=== PATIENT | female | born 1955 | race Caucasian/White ===

== ENCOUNTER 2016-09-28 17:03 | Inpatient (IN) ==
[2016-09-28] MEDS ORDERED: Ondansetron 4 MG/2 ML VIAL IVP PRN (20:45)
[2016-09-28] MEDS ORDERED: Naloxone 0.4 MG/ML INJ IVP PRN (20:45)
[2016-09-28] MEDS ORDERED: *HR* Heparin 5,000 UNIT/ML VIAL IVP PRN ×2 (20:45)
[2016-09-28] MEDS ORDERED: Acetaminophen 325 MG TABLET PO PRN (20:45)
[2016-09-28] MEDS ORDERED: Heparin 25,000 UNIT/500 ML D5W 25,000 UNIT/500 ML MLS IVC SCH (20:45)
[2016-09-28] MEDS ORDERED: methylPREDNISolone 125 MG/2 ML VIAL IVP STA (20:45)
[2016-09-28] MEDS ORDERED: *HR* Heparin 5,000 UNIT/ML VIAL IVP ONE (20:45)
[2016-09-28] MEDS ORDERED: Albuterol 2.5 MG/3 ML NEBULIZER IH PRN (20:45)
[2016-09-28] MEDS ORDERED: MOM Conc 10 ML UD.LIQ PO PRN (20:45)
[2016-09-28] MEDS ORDERED: Pantoprazole 40 MG VIAL IVP STA (20:45)
[2016-09-28] MEDS ORDERED: Nitroglycerin 0.4 MG TAB.SUBL SL PRN ×2 (20:45→21:00)
[2016-09-28] MEDS ORDERED: D5% in Water 1,000 ML IV PRN (21:02)
[2016-09-28] MEDS ORDERED: *HR* Dextrose 50 % in Water (Syg) 50 ML SYRINGE IVP PRN (21:02)
[2016-09-28] MEDS ORDERED: Dextrose Gel 15 GM PO PRN ×2 (21:02)
[2016-09-28] MEDS: Insulin LISPRO 300 UNITS/3 ML VIAL SQ SCH (21:23)
[2016-09-28] MEDS: 0.9 % Sodium Chloride 1,000 ML IVC SCH (21:37)
[2016-09-28] MEDS: Fenofibrate 54 MG TABLET PO SCH (21:37)
[2016-09-28] MEDS: Gabapentin 300 MG CAPSULE PO SCH (21:37)
[2016-09-28] MEDS: ALPRAZolam 0.25 MG TABLET PO SCH (21:37)
[2016-09-28] MEDS: Famotidine 20 MG TABLET PO SCH (21:37)
--- NOTE | 2016-09-28 21:39 | Internal Med History&Physical ---
Date of Encounter: 09/28/16 Time of Encounter: 21:00 Assessment and Plan (1) Acute on chronic respiratory failure with hypoxia and hypercapnia Status: Acute (2) Decompensated COPD with exacerbation (chronic obstructive pulmonary disease) Status: Acute (3) Non-ST elevation myocardial infarction (NSTEMI) due to mismatch of myocardial oxygen supply and demand Status: Acute (4) Demand ischemia of myocardium Status: Acute (5) Elevated troponin I measurement Status: Acute (6) Pneumonia Status: Acute . Qualifiers: Pneumonia type: due to unspecified organism Laterality: bilateral Lung location: unspecified part of lung Qualified Code(s): J18.9 - Pneumonia, unspecified organism (7) History of PTCA Status: Chronic . (8) CAD (coronary artery disease) Status: Chronic . Qualifiers: Coronary Disease-Associated Artery/Lesion type: beaver artery [place] vs. transplanted heart: beaver heart Associated angina: angina presence unspecified Qualified Code(s): I25.10 - Atherosclerotic heart disease of beaver coronary artery without angina pectoris (9) Chronic kidney disease, stage 3 Status: Chronic . (10) Diabetes mellitus type 2 in obese Status: Chronic . (11) Mixed hyperlipidemia Status: Chronic . (12) Morbid obesity Status: Chronic . Qualifiers: Obesity type: due to excess calories Qualified Code(s): E66.01 - Morbid ( severe) obesity due to excess calories (13) Acute chest wall pain Status: Acute . (14) Chest pain, rule out acute myocardial infarction Status: Acute . (15) Chest pain with moderate risk of acute coronary syndrome Status: Acute . (16) Atherosclerosis with claudication of extremity Status: Chronic . (17) Tobacco abuse Status: Chronic . Internal Medicine - H&P: HPI Chief complaint: Difficulty breathing Admitted From: Hospital to Hospital Transfer (Hospital transfer [facility] to [facility]) Plans for Post Hospital Care: Home History of present illness: Ms. Stein is a 61 year old female with history significant for hypothyroidism, depression and anxiety, type 2 diabetes mellitus, hypertension, dyslipidemia, osteoarthritis, osteoporosis, vitamin D deficiency, CAD/PTCA stents/AMI, PAD/LE claudication, CKD III/diabetic nephropathy, GERD, COPD, H/O asthma, chronic LBP syndrome/diabetic peripheral neuropathy, DDD of spine, morbid obesity, nicotine dependency The patient was visited and interviewed and examined. The patient was admitted to [facility] as a hospital to hospital transfer from [facility], [place], [place] emergency department when she presented the evening of admission via EMS services with complaints of severe shortness of breath. Dyspnea at rest and exacerbated with light activity. She felt as if she had a cold approximately 1-2 weeks earlier this progressed with a deep nonproductive cough the feeling of chest congestion and stuffiness of her head and throbbing headache as well as progressive malaise. Symptoms progressed over next 7-day period and worse the 3 days leading up to admission. SHe experienced at the extremes of activity episodes of substernal chest pain rated at 4-10/10 in severity and nonradiating as well as a nonproductive cough and lightheadedness. Pleuritic quality to the chest pain was appreciated with aggravation with deep inspiration and cough. Headache at times felt to be more severe at a 7-8/10 in severity and generalized. Postural dizziness with presyncopal features were also experienced. She denies any overt fevers chills or sweats. Denied any upper respiratory complaints of sinus congestion sore throat or sinus pressure or postnasal drainage. She denied any PND orthopnea or peripheral edema. Cough is intermittently productive of scant sputum. No evidence of hemoptysis. Wheezing was appreciated. She denied any abdominal pain nausea vomiting or diarrhea predating her respiratory symptoms. Denied flank pain and low back pain dysuria frequency or hematuria. She denied a rash. He denies any gait disturbance and lateral weakness headache and neck pain speech deficit vision deficit or syncope. The patient reported compliance with prescribed medications. She continues to smoke. Denies any dietary OTC or recreational substance indiscretions. Findings in the [facility] ED: Temperature 97.4 pulse 62-72 respirations 14-20 BP 114-150/51-106. O2 saturation 89-94% room air. O2 saturation on 2 L per nasal cannula 92-96%. Weight 107.5 kg height 5 feet 6 inches BMI 38.25. CBC 14.5 hemoglobin 12 platelets 209,000. Differential showed an increase in neutrophils and monocytes. Metabolic panel normal except a glucose at 49. BUN 15 with creatinine 1.45 GFR 39. Troponin 0.73 and 0.75. BNP 445. CPK 106 CK-MB 2.6. EKG demonstrated normal sinus rhythm at 67 bpm. Evolving left axis deviation. Q wave in V1 and V2. Septal infarct age indeterminate. Transition V3 V4. Nonspecific ST-T wave changes. Minimal lateral ST depression. Baseline artifact. Chest x-ray was interpreted as showing no acute or active cardiopulmonary changes. Treatment rendered in the emergency department before transfer included intravenous Solu-Medrol, intravenous Rocephin and azithromycin, DuoNeb administration, aspirin, intravenous morphine. Transfer to [facility] at patient request with diagnoses of Chest pain unspecified and COPD exacerbation unspecified. Initial studies performed at [facility]: WBC 12.0 hemoglobin 12.1 platelets 203,000. Differential noted an increase in neutrophils. PT 13.4 INR 1.2 PTT 35.6. Metabolic panel noted sodium 135 creatinine 1.1 BUN 15 GFR 38. Glucose 135. Hepatic function normal. Troponin 0.70 BNP 684. Albumin [address] chest demonstrated multifocal groundglass opacities. No evidence for pneumothorax, pleural effusion or focal consolidation. Nonspecific findings 30 for opportunistic infection, hypersensitivity pneumonitis, pulmonary edema, chronic interstitial disease. Preliminary impressions suggested And sedated COPD with exacerbation and associated acute on chronic respiratory failure with hypoxia and hypercapnia. Demand ischemia of myocardium with associated elevation in troponin I measurement consistent with non-ST elevation myocardial infarction due to mismatch of myocardial infarction supply and demand associated flash pulmonary edema. Acute chest pain complaints presented typical and atypical features of ACS/UA in a patient with underlying diffuse vasculopathy. The reproducible chest wall component consistent with acute costochondritis was also appreciated as well as a pleuritic quality of pain persisted with the patient's concurrent pulmonary infection. Community-acquired atypical vs viral pneumonia was suspected. Systemic inflammatory response criterion were met. Sepsis criterion however was not met. Patient presented the significant risk for further acute clinical decline and morbidity and her presenting chief complaints, clinical findings and comorbidities in the setting of evolving multiorgan derangements. Workup and treatments will proceed comprehensively. Cumulative laboratory and radiographic data base was reviewed, considered and discussed. Pertinent ancillary medical records including ECW and PCI documentation was reviewed and considered. Given the patient's presenting concerns, past medical history, clinical findings and symptoms, she is admitted at this time will undergo further evaluation and disposition. Orders were written as per the computerized physician recorder of deeds system.......................................................................... .................... Consultative opinions will be sought as clinical circumstances justify. Initial consultation requested of cardiology. Pain management needs will be addressed. Laboratory and radiographic data base will be updated as appropriate. Studies include: Cultures of blood urine and sputum, PT/INR, APTT, cardiac injury panel , BNP, metabolic and hematologic panel, magnesium, phosphorus, ionized calcium, thyroid panel, lipid profile, A1c, C-peptide, CRP, sed rate, respiratory infection profile, respiratory virus panel, MRSA surveillance, blood gas, amylase, lipase, lactic acid, serologies, etc. Precautions: Aspiration, fall, delirium protocol/surveillance initiated. Telemetry with continuous hemodynamic monitoring and pulse oximetry initiated. Orthostatic vital signs. Empiric antibody coverage: Intravenous Zosyn and Levaquin pending culture data. Special studies: CT chest, chest x-ray, telemetry, EKG, echocardiogram. Pulmonary toilet: Incentive spirometry, aerosol bronchodilator, mucolytic, antitussive, supplemental oxygen. Corticosteroid therapy. CPAP/BiPAP supplemental oxygen delivery employed. Aerosol Mucomyst therapy may be employed. Fluid and electrolyte repletion efforts will proceed. Careful attention to fluid balance and renal recovery will be emphasized. Avoidance of nephrotoxic exposure and adverse drug drug interaction in the setting of impaired renal function will be monitored closely. Acute coronary syndrome protocols/surveillance initiated. Protocol includes: Aspirin statin beta jessica Plavix and ALESIA inhibitor. As needed nitrates. As needed morphine analgesia. Supplemental oxygen. Intravenous heparin drip low-dose ACS protocol initiated. DVT and PUD prophylaxis initiated: PPI/H2 jessica therapy, intermittent pneumatic cuffs/TEDs. Early ambulation will be encouraged. Immunization updates recommended. Influenza and pneumococcal vaccinations as part of ongoing preventative healthcare recommendations strongly recommended. Smoking cessation counseling briefly addressed. Patient accepted nicotine substitution during this hospitalization.. Advanced care directive discussion briefly addressed. Patient does not declare any healthcare restrictions at this time. Cardiovascular risk appraisal and cardiovascular risk reduction efforts will be emphasized. Physical and occupational therapy may be consulted to evaluate patient's functional capacity and progress mobility if her circumstances justify. Sliding scale/nutritional/basal insulin coverage, ADA dietary restraint and schedule an as-needed basis fingerstick glucose assessments were initiated. Nutrition/diabetes education counseling may be considered as circumstances permit. Outpatient medication schedules will be reviewed, confirmed and facilitated as appropriate. Reconciliation of home treatments including adjustments, substitutions and reintroduction into the treatment regimen will address necessary maintenance therapies for chronic pre-existing medical conditions. Plan of care has been reviewed and discussed in detail with the patient. Questions addressed. Hospital course will depend upon clinical findings, treatment response and potential consultative interventions. Patient is at risk for further acute clinical decline and morbidity due to her presenting chief complaints, findings and comorbidities in the setting of evolving multiorgan derangements. Condition is serious. Prognosis is cautiously optimistic. CODE STATUS is full. Past Med Surg Social Fam HX - Past Medical History Source: old records reviewed Medical history: arthritis, asthma, cardiomyopathy, CHF, COPD, coronary artery disease, diabetes, GERD, hyperlipidemia, hypertension, myocardial infarction, osteoporosis, peripheral artery disease, renal disease, thyroid disease, other Psychiatric history: anxiety, depression, panic disorder, other - Past Surgical History Surgical History: angioplasty/stent, breast surgery, cataract, hysterectomy, orthopedic, other, MARÍA/BSO, other (Tonsillectomy adenoidectomy) - Social History Smoking Status: Current every day smoker Packs per day: 1ppd x43yrs Smokeless Tobacco Status: No Alcohol use: occasionally Drug use: none Occupational status: unemployed Current living situation: With Family Activity Level: Independent ambulation, Mostly sedentary Recent Out of Country Travel Within the Last 8 Weeks: No Exposure or Possible Exposure to Illness During Travel: No - Family History Mother Living Status: Hx Family Cardiac Disorders: Yes Hx Family Cancer: Yes Hx Family Endocrine Disorder: Yes Internal Medicine - H&P: Meds Amlodipine Besylate 10 mg PO DAILY 12/19/15 [History] Ergocalciferol (VITAMIN D2) [Vitamin D2 (50,000 UNIT)] 50,000 unit PO PARK [History] FLUoxetine HCl [Prozac] 40 mg PO QPM 12/19/15 [History] Gabapentin [Neurontin] 300 mg PO TID 12/19/15 [History] Levothyroxine [Synthroid] 125 mcg PO DAILY 12/19/15 [History] Metoprolol XL (24 HR) Succ [Toprol Xl] 25 mg PO QPM 12/19/15 [History] Nitroglycerin 0.4 mg SL Q5MIN PRN 12/19/15 [History] Simvastatin [Zocor] 40 mg PO HS 12/19/15 [History] Cholecalciferol (Vitamin D3) [Vitamin D3] 2,000 unit PO DAILY 02/28/16 [History] Linagliptin [Tradjenta] 5 mg PO DAILY 02/28/16 [History] Aspirin Enteric Coated [Aspirin EC] 81 mg PO DAILY 03/21/16 [History] Clopidogrel [Plavix] 75 mg PO QPM 03/21/16 [History] Ranitidine HCl [Zantac] 300 mg PO DAILY 03/21/16 [History] Fenofibrate Nanocrystallized [Fenofibrate] 145 mg PO DAILY 09/29/16 [History] Albuterol Sulfate [Proair Hfa] 1 puff IH Q4HR PRN #1 inh 10/04/16 [Rx] Budesonide/Formoterol 160/4.5 [Symbicort 160/4.5] 1 puff IH DAILY #1 inhaler 06/10 [Rx] Nicotine Patch [Nicoderm] 21 mg TD DAILY #30 patch.td24 10/04/16 [Rx] Pantoprazole [Protonix] 40 mg IVP DAILY #14 vial 10/04/16 [Rx] PredniSONE 40 mg PO DAILY #2 tablet 10/04/16 [Rx] Alprazolam [Xanax 0.25 MG Tablet] 0.25 mg PO TID PRN #21 tablet 10/07/16 [Rx] Lisinopril [Zestril] 40 mg PO DAILY #30 tablet 10/07/16 [Rx] Metformin HCl [Metformin HCl ER] 1,000 mg PO DAILY #30 [id number] 10/07/16 [Rx] OxyCODONE/APAP 5/325 [Percocet 5/325 MG] 1 tab PO Q6HR PRN #30 tablet 10/07/16 [ Rx] Pantoprazole Sodium 40 mg PO BID #14 tablet. 10/07/16 [Rx] Allergies No Known Allergies Allergy (Verified 04/24/16 08:30) All Systems PM: A 10-system review of systems was performed and is negative for pertinent findings except as documented above in the HPI. - Constitutional Constitutional: as per HPI, malaise, no chills, no fever(s), no night sweats - EENT Eyes: as per HPI, no change in vision, no discharge, no pain, no photophobia Ears: as per HPI, no ear discharge, no ear pain, no tinnitus Nose, mouth and throat: as per HPI, nasal congestion, post-nasal drip, no dysphagia, no nasal discharge, no neck pain, no sore throat - Cardiovascular Cardiovascular ROS IM: as per HPI, chest pain, dyspnea, lightheadedness, no diaphoresis, no palpitations, no syncope - Respiratory Respiratory: as per HPI, cough, dyspnea, dyspnea on exertion, wheezing, chest congestion, change in phlegm color, pain with cough, no hemoptysis, no excessive phlegm production - Gastrointestinal Gastrointestinal: as per HPI, no abdominal pain, no diarrhea, no hematemesis, no hematochezia, no melena, no nausea, no vomiting - Genitourinary Genitourinary: as per HPI, no change in urinary stream, no dysuria, no flank pain, no hematuria - Musculoskeletal Musculoskeletal ROS IM: as per HPI, no numbness, no tingling - Integumentary Integumentary IM: as per HPI, no rash, no unusual bruising - Neurological Neurological ROS: as per HPI, no confusion, no convulsions, no focal weakness, no numbness, no tingling, no tremor(s) - Psychiatric Psychiatric: as per HPI - Endocrine Endocrine IM: as per HPI - Hematologic/Lymphatic Hematologic/Lymphatic: as per HPI, no easy bruising - Allergic/Immunologic Allergic/Immunologic: as per HPI - Constitutional Vitals: Temp Pulse Resp BP Pulse Ox 98.0 F 80 18 173/77 94 L 09/28/16 19:39 09/28/16 19:39 09/28/16 19:39 09/28/16 19:39 09/28/16 19:39 General appearance: Present: cooperative, disheveled, mild distress, A&O X 3, morbidly obese, answers questions appropriately - Head Head exam: Present: atraumatic, normal inspection, normocephalic - Eye Eye exam: Present: EOMI, PERRL, conjuntiva pink, sclera anicteric Pupils: Present: normal accommodation, PERRL - ENT ENT exam: Present: mucous membranes moist, normal external ear exam, normal oropharynx - Neck Neck exam general surgery: Present: full ROM, supple, trachea midline. Absent: lymphadenopathy, tenderness, nuchal rigidity - Respiratory Respiratory exam: Present: accessory muscle use, chest wall tenderness, decreased breath sounds, prolonged expiratory phase, rhonchi, wheezes. Absent: CTAB, rales, stridor - Cardiovascular Cardiovascular exam: Present: distant heart sounds, RRR, +S1, +S2, tachycardia. Absent: diastolic murmur, gallop, rubs, systolic murmur - GI/Abdominal GI/Abdominal exam: Present: distended, normal bowel sounds, soft, no peritoneal signs. Absent: tenderness - Extremities Exam Extremities exam: Present: full ROM, warm, radial pulses palpable and symetrical. Absent: calf tenderness, cyanotic, pedal edema - Neurological Exam Neurological exam: Present: alert, CN II-XII intact, oriented X3, no focal deficits. Absent: pronater drift, facial droop, speech deficit - Psychiatric Psychiatric exam: Present: normal affect, normal mood - Skin Skin exam: Present: cyanosis, dry, intact, warm. Absent: petechiae, rash, urticaria, vesicles Internal Med - H&P Results - Labs CBC & Chem 7: 10/06/16 04:47 10/06/16 04:47 - Impressions Vital Signs Temp Pulse Resp BP Pulse Ox 09/29/16 00:45 98.0 F 59 16 123/58 92 L 09/28/16 23:01 16 93 L 09/28/16 19:39 98.0 F 80 18 173/77 94 L Intake and Output 09/28/16 09/28/16 09/29/16 15:59 23:59 07:59 Intake Total 200 / 200 Output Total 0 / 0 Balance 200 / 200 Intake: Oral 200 / 200 Output: Urine 0 / 0 Other: Weight 106 kg Blood Glucose* 114 Short CBC 09/28/16 Range/Units 21:34 WBC 12.0 H (4.3-11.1) K/mcL Hgb 12.1 (11.5-15.4) g/dL Hct 37.1 (35.3-44.9) % Plt Count 203 (140-400) K/mcL Neutrophils # 11.0 H (1.6-8.9) K/mcL BMP 09/28/16 Range/Units 21:34 Sodium 135 L (136-145) mEq/L Potassium 4.0 (3.5-4.5) mEq/L Chloride 104 (98-109) mEq/L Carbon Dioxide 19 (19-29) mEq/L BUN 15 (7-20) mg/dL Creatinine 1.41 H (0.57-1.11) mg/dL Glucose 135 H (70-99) mg/dL Calcium 9.9 (8.6-10.8) mg/dL Cardiac Enzymes 09/28/16 Range/Units 21:34 Troponin I 0.70 H* (0-0.03) ng/mL Liver Function 09/28/16 Range/Units 21:34 Total Bilirubin 0.6 (0.2-1.2) mg/dL AST 25 (5-34) Units/L ALT 16 (0-55) Units/L Alkaline Phosphatase 57 (38-126) Units/L Albumin 3.0 L (3.5-5.0) g/dL Abnormal lab results WBC 12.0 K/mcL (4.3-11.1) H 09/28/16 21:34 MCH 27.8 pg (28.0-33.3) L 09/28/16 21:34 Neutrophils # 11.0 K/mcL (1.6-8.9) H 09/28/16 21:34 PT 13.4 Seconds (9.4-12.1) H 09/28/16 21:34 Sodium 135 mEq/L (136-145) L 09/28/16 21:34 Creatinine 1.41 mg/dL (0.57-1.11) H 09/28/16 21:34 Est GFR ( Amer) 46 (> 60) L 09/28/16 21:34 Est GFR (Non-Af Amer) 38 (> 60) L 09/28/16 21:34 Glucose 135 mg/dL (70-99) H 09/28/16 21:34 Troponin I 0.70 ng/mL (0-0.03) H* 09/28/16 21:34 Albumin 3.0 g/dL (3.5-5.0) L 09/28/16 21:34 Globulin 4.6 g/dL (2.4-3.5) H 09/28/16 21:34 Albumin/Globulin Ratio 0.7 (1.1-2.2) L 09/28/16 21:34 Allergies Allergy/AdvReac Type Severity Reaction Status Date / Time No Known Allergies Allergy Verified 04/24/16 08:30 Laboratory Results WBC 12.0 K/mcL (4.3-11.1) H 09/28/16 21:34 RBC 4.35 M/mcL (3.82-4.97) 09/28/16 21:34 Hgb 12.1 g/dL (11.5-15.4) 09/28/16 21:34 Hct 37.1 % (35.3-44.9) 09/28/16 21:34 MCV 85.3 fL (83.0-100.0) 09/28/16 21:34 MCH 27.8 pg (28.0-33.3) L 09/28/16 21:34 MCHC 32.6 g/dL (31.6-35.5) 09/28/16 21:34 RDW 14.1 % (11.5-14.5) 09/28/16 21:34 Plt Count 203 K/mcL (140-400) 09/28/16 21:34 MPV 10.3 fL (9.4-12.4) 09/28/16 21:34 Immature Gran % 0.6 % (0-4) 09/28/16 21:34 Seg Neutrophils % 91.7 % 09/28/16 21:34 Lymphocytes % 5.2 % 09/28/16 21:34 Monocytes % 2.4 % 09/28/16 21:34 Eosinophils % 0.0 % 09/28/16 21:34 Basophils % 0.1 % 09/28/16 21:34 Neutrophils # 11.0 K/mcL (1.6-8.9) H 09/28/16 21:34 Lymphocytes # 0.6 K/mcL (0.6-4.6) 09/28/16 21:34 Monocytes # 0.3 K/mcL (0.0-1.3) 09/28/16 21:34 Eosinophils # 0.0 K/mcL (0.0-0.6) 09/28/16 21:34 Basophils # 0.0 K/mcL (0.0-0.2) 09/28/16 21:34 PT 13.4 Seconds (9.4-12.1) H 09/28/16 21:34 INR 1.2 09/28/16 21:34 APTT 35.6 Seconds (26.0-36.0) 09/28/16 21:34 Sodium 135 mEq/L (136-145) L 09/28/16 21:34 Potassium 4.0 mEq/L (3.5-4.5) 09/28/16 21:34 Chloride 104 mEq/L (98-109) 09/28/16 21:34 Carbon Dioxide 19 mEq/L (19-29) 09/28/16 21:34 BUN 15 mg/dL (7-20) 09/28/16 21:34 Creatinine 1.41 mg/dL (0.57-1.11) H 09/28/16 21:34 Est GFR ( Amer) 46 (> 60) L 09/28/16 21:34 Est GFR (Non-Af Amer) 38 (> 60) L 09/28/16 21:34 BUN/Creatinine Ratio 11 (6-26) 09/28/16 21:34 Glucose 135 mg/dL (70-99) H 09/28/16 21:34 Calculated Osmolality 283 (280-300) 09/28/16 21:34 Calcium 9.9 mg/dL (8.6-10.8) 09/28/16 21:34 Phosphorus 3.0 mg/dL (2.3-4.7) 09/28/16 21:34 Magnesium 1.7 mg/dL (1.6-2.6) 09/28/16 21:34 Total Bilirubin 0.6 mg/dL (0.2-1.2) 09/28/16 21:34 AST 25 Units/L (5-34) 09/28/16 21:34 ALT 16 Units/L (0-55) 09/28/16 21:34 Alkaline Phosphatase 57 Units/L (38-126) 09/28/16 21:34 Troponin I 0.70 ng/mL (0-0.03) H* 09/28/16 21:34 Serum Total Protein 7.6 g/dL (6.0-8.3) 09/28/16 21:34 Albumin 3.0 g/dL (3.5-5.0) L 09/28/16 21:34 Globulin 4.6 g/dL (2.4-3.5) H 09/28/16 21:34 Albumin/Globulin Ratio 0.7 (1.1-2.2) L 09/28/16 21:[address] 09/28/16 23:02 IMPRESSION: Minimal multifocal ground-glass opacities are seen bilaterally. These findings are nonspecific but could be related to opportunistic pneumonia, hypersensitivity pneumonitis, pulmonary edema, or chronic interstitial disease. . D/ / Remedios Stevenson MD / Remedios Stevenson MD Interpreting Provider: Remedios Stevenson MD
[2016-09-28] MEDS: *HR* OxyCODONE Immed Rel 5 MG TABLET PO PRN (21:41)
[2016-09-28] MEDS: Nicotine 21 MG PATCH.TD24 TD SCH (21:42)
[2016-09-28 21:43] LABS: Basophils % 0.1 %; Hematocrit 37.1 % (35.3-44.9); Hemoglobin 12.1 g/dL (11.5-15.4); Immature Granulocytes % 0.6 % (0-4); Lymphocytes # 0.6 K/mcL (0.6-4.6); Lymphocytes % 5.2 %; Mean Corpuscular HGB Conc 32.6 g/dL (31.6-35.5); Mean Corpuscular Hemoglobin 27.8 pg (28.0-33.3); Mean Corpuscular Volume 85.3 fL (83.0-100.0); Mean Platelet Volume 10.3 fL (9.4-12.4); Monocytes # 0.3 K/mcL (0.0-1.3); Monocytes % 2.4 %; Platelet Count 203 K/mcL (140-400); Red Blood Count 4.35 M/mcL (3.82-4.97); Red Cell Distribution Width 14.1 % (11.5-14.5); Segmented Neutrophils % 91.7 %
[2016-09-28 21:52] LABS: INR 1.2; Prothrombin Time 13.4 Seconds (9.4-12.1)
[2016-09-28 21:55] LABS: Activated Partial Thrombo Time 35.6 Seconds (26.0-36.0)
[2016-09-28 21:57] LABS: Albumin/Globulin Ratio 0.7 (1.1-2.2); Bilirubin,Total 0.6 mg/dL (0.2-1.2); Calcium 9.9 mg/dL (8.6-10.8); Globulin 4.6 g/dL (2.4-3.5); Magnesium 1.7 mg/dL (1.6-2.6); Total Protein 7.6 g/dL (6.0-8.3)
[2016-09-28] MEDS ORDERED: Benzonatate 100 MG CAPSULE PO PRN (22:06)
[2016-09-28] MEDS ORDERED: Dextromethorphan Polistrx(12h) 30 MG/5 ML UDC PO STA (22:06)
[2016-09-28] MEDS: Melatonin 3 MG TABLET PO SCH (22:49)
[2016-09-28] MEDS: Ipratropium/Albuterol Neb 3 ML IH SCH (23:01)
[2016-09-29] MEDS: Ipratropium/Albuterol Neb 3 ML IH SCH ×4 (04:01→23:21)
[2016-09-29 05:02] LABS: Hematocrit 35.3 % (35.3-44.9); Hemoglobin 11.5 g/dL (11.5-15.4); Mean Corpuscular HGB Conc 32.6 g/dL (31.6-35.5); Mean Corpuscular Hemoglobin 28.2 pg (28.0-33.3); Mean Corpuscular Volume 86.5 fL (83.0-100.0); Mean Platelet Volume 10.4 fL (9.4-12.4); Platelet Count 191 K/mcL (140-400); Red Blood Count 4.08 M/mcL (3.82-4.97); Red Cell Distribution Width 14.3 % (11.5-14.5)
[2016-09-29 05:07] LABS: Bilirubin,Urine Negative (Negative); Blood,Urine Large (Negative); Clarity,Urine Cloudy (Clear); Color,Urine Yellow (Yellow); Glucose,Urine (UA) >=1000 mg/dL (Normal); Ketones,Urine Trace mg/dL (Negative); Leukocyte Esterase,Urine Negative (Negative); Nitrite,Urine Negative (Negative); PH,Urine 5.5 pH Units (5.0-8.0); Protein,Urine 100 mg/dL (Neg-Trace); Specific Gravity,Urine 1.023 (1.010-1.025); Urobilinogen,Urine Normal (Normal)
[2016-09-29 05:09] LABS: INR 1.2; Prothrombin Time 13.5 Seconds (9.4-12.1)
[2016-09-29 05:09] LABS: Bacteria,Urine Many per hpf (None-Few); Hyaline Casts,Urine None Seen per lpf (None-Few); Squamous Epithelial Cell,Urine Many per lpf (None-Few)
[2016-09-29 05:12] LABS: Activated Partial Thrombo Time 66.8 Seconds (26.0-36.0); Hemoglobin A1C 5.6 %
[2016-09-29 05:15] LABS: Chol/HDL Ratio 4.5 (0-4.9)
[2016-09-29 05:36] LABS: Thyroid Stimulating Hormone 0.123 mcIU/mL (0.350-4.840)
[2016-09-29] MEDS: Insulin LISPRO 300 UNITS/3 ML VIAL SQ SCH ×5 (07:58→22:34)
[2016-09-29] MEDS: Nicotine 21 MG PATCH.TD24 TD SCH (08:00)
[2016-09-29] MEDS: predniSONE 20 MG TABLET PO SCH (08:05)
[2016-09-29] MEDS: amLODIPine 5 MG TABLET PO SCH (08:06)
[2016-09-29] MEDS: Aspirin Enteric Coated 81 MG Tablet PO SCH (08:06)
[2016-09-29] MEDS: Gabapentin 300 MG CAPSULE PO SCH ×3 (08:06→22:35)
[2016-09-29] MEDS: Famotidine 20 MG TABLET PO SCH (08:06)
[2016-09-29] MEDS: *HR* OxyCODONE Immed Rel 5 MG TABLET PO PRN ×2 (08:35→14:39)
[2016-09-29] MEDS ORDERED: Levofloxacin 750 MG/150 ML 750 MG/150 ML BAG IVPB SCH (09:00)
--- NOTE | 2016-09-29 09:44 | Cardiology Consult Note ---
<Albino Kowalski R - Last Filed: 09/29/16 10:39> Date of Encounter: 09/29/16 Time of Encounter: 09:42 Assessment and Plan (1) Elevated troponin I measurement Current Visit: Yes Status: Acute Troponins 0.70, 0.50 in setting of COPD exacerbation. Likely demand ischemia, nondiagnostic for ACS. Recent [facility] 04/2016 with single vessel CAD and PTCA/EVERARDO in mid RCA. Reports missing occasional doses of Plavix. Compliance reinforced of DAPT x 1 year uninterrupted. Pt describes pleuritic chest pain currently--chest heaviness when coughing. Denies any chest pain similar to her past angina. Will check echo since she has never had one. Continue ASA, Plavix, Statin, BB. Stop heparin gtt. (2) Decompensated COPD with exacerbation (chronic obstructive pulmonary disease) Current Visit: Yes Status: Acute Management per primary team. (3) CAD (coronary artery disease) Current Visit: Yes Status: Chronic Hx of PTCA/EVERARDO in mid RCA 03/2016. ASA, Plavix, Statin, BB. Reports missing occasional doses of Plavix in the beginning. Compliance reinforced. DAPT x 1 year uninterrupted. Qualifiers: Coronary Disease-Associated Artery/Lesion type: ambler artery [place] vs. transplanted heart: ambler heart Associated angina: angina presence unspecified Qualified Code(s): I25.10 - Atherosclerotic heart disease of ambler coronary artery without angina pectoris (4) Tobacco abuse Current Visit: Yes Status: Chronic Smoking cessation counseling given. Discussion w patient/family: The assessment and plan as outlined above was discussed with the patient and/or family members who expressed understanding and agreement. All questions were answered. Thank you for involving us in the care of your patient. Please call with any questions. I will discuss all the above with Dr. Bryant and make changes as necessary. History of Present Illness Consult date: 09/29/16 Requesting physician: Arnold Petersen Consult reason: Elevated troponin Chief complaint: Dyspnea History of present illness: Ms. Stein is a 61 year old female PMH of PAD s/p intervention, CAD s/p PCI to mid RCA, Stage 3 CKD, HTN, tobacco abuse, COPD that presented in transfer from outside facility. She reports over the past week she has had increased congestion, cough, and dyspnea. She reports chest heaviness when coughing--not similar to prior anginal pain. She has been diagnosed with a COPD exacerbation. Troponins were checked, 0.70, 0.50 and cardiology was consulted. Past Med Surg Social Fam HX - Past Medical History Medical history: arthritis, asthma, cardiomyopathy, CHF, COPD, coronary artery disease, diabetes, GERD, hyperlipidemia, hypertension, myocardial infarction, osteoporosis, peripheral artery disease, renal disease, thyroid disease, other Psychiatric history: anxiety, depression, panic disorder, other - Past Surgical History Surgical History: angioplasty/stent, breast surgery, cataract, hysterectomy, orthopedic, other, MARÍA/BSO, other (Tonsillectomy adenoidectomy) - Social History Smoking Status: Current every day smoker Smokeless Tobacco Status: No Alcohol use: occasionally Drug use: none - Family History Mother Living Status: Hx Family Cardiac Disorders: Yes Hx Family Cancer: Yes Hx Family Endocrine Disorder: Yes Medications and Allergies Alprazolam [Xanax 0.25 MG Tablet] 0.25 mg PO TID PRN 12/19/15 [History] Amlodipine Besylate 10 mg PO DAILY 12/19/15 [History] Ergocalciferol (VITAMIN D2) [Vitamin D2 (50,000 UNIT)] 50,000 unit PO PARK [History] FLUoxetine HCl [Prozac] 40 mg PO QPM 12/19/15 [History] Gabapentin [Neurontin] 300 mg PO TID 12/19/15 [History] Levothyroxine [Synthroid] 125 mcg PO DAILY 12/19/15 [History] Metoprolol XL (24 HR) Succ [Toprol Xl] 25 mg PO QPM 12/19/15 [History] Nitroglycerin 0.4 mg SL Q5MIN PRN 12/19/15 [History] Simvastatin [Zocor] 40 mg PO HS 12/19/15 [History] Cholecalciferol (Vitamin D3) [Vitamin D3] 2,000 unit PO DAILY 02/28/16 [History] Linagliptin [Tradjenta] 5 mg PO DAILY 02/28/16 [History] Aspirin Enteric Coated [Aspirin EC] 81 mg PO DAILY 03/21/16 [History] Clopidogrel [Plavix] 75 mg PO QPM 03/21/16 [History] Ranitidine HCl [Zantac] 300 mg PO DAILY 03/21/16 [History] Fenofibrate Nanocrystallized [Fenofibrate] 145 mg PO DAILY 09/29/16 [History] GlipiZIDE XL (24 HR) [Glucotrol XL] 10 mg PO BID 09/29/16 [History] OxyCODONE/APAP 5/325 [Percocet 5/325 MG] 1 tab PO Q6HR PRN 09/29/16 [History] Allergies No Known Allergies Allergy (Verified 04/24/16 08:30) All Systems Review: A 10-system review of systems was performed and is negative for pertinent findings except as documented above in the HPI. - Cardiovascular Cardiovascular: as per HPI, chest pain at rest, dyspnea at rest, dyspnea on exertion - Respiratory Respiratory: cough, dyspnea Physical Examination Vital Signs, Last 4 Hours Temp Pulse Resp BP Pulse Ox 09/29/16 07:34 97.4 F L 55 16 152/77 93 L 09/29/16 06:00 97.8 F 60 16 139/66 94 L Vital Signs Temp Pulse Resp BP Pulse Ox 09/29/16 07:34 97.4 F L 55 16 152/77 93 L 09/29/16 06:00 97.8 F 60 16 139/66 94 L 09/29/16 04:01 18 93 L 09/29/16 00:45 98.0 F 59 16 123/58 92 L 09/28/16 23:01 16 93 L 09/28/16 19:39 98.0 F 80 18 173/77 94 L Intake and Output 09/28/16 09/29/16 09/29/16 23:59 07:59 15:59 Intake Total 355 / 355 120 / 120 Output Total 400 / 400 400 / 400 Balance -45 / -45 -280 / -280 Intake: IV Fluids 155 / 155 Heparin 25,000 UNIT/500 155 / 155 ML D5W 25,000 unit In 500 ml @ 9.4 UNIT/KG/HR 19. 928 mls/hr IVC .Q24H [facility] Rx#:[id number] Oral 200 / 200 120 / 120 Output: Urine 400 / 400 400 / 400 Other: Meal Breakfast Percent of Meal Consumed 25% Weight 106 kg Blood Glucose* 114 447 General: Conversant, No Apparent Distress HEENT: Atraumatic, Normocephaly, Mucus Membranes Moist Neck: No JVD, Normal carotid pulses Cardiac: Reg Rate and Rhythm, Normal S1 and S2, No Murmur Lungs: Other (diminished) Neuro: Alert and responsive, No focal deficits noted Abdomen: Soft, Non-Tender Skin: No rashes noted on visualized skin Musculoskeletal: No Chest Wall Tenderness Extremities: No Clubbing, No Cyanosis, No Edema, Normal Pulses Results 09/29/16 04:34 09/28/16 21:34 Lab Results 09/28/16 09/28/16 09/28/16 21:34 21:34 21:34 WBC 12.0 H Hgb 12.1 Hct 37.1 Plt Count 203 INR 1.2 APTT 35.6 Sodium 135 L Potassium 4.0 Chloride 104 Carbon Dioxide 19 BUN 15 Creatinine 1.41 H Glucose 135 H Calcium 9.9 Magnesium 1.7 Total Bilirubin 0.6 AST 25 ALT 16 Alkaline Phosphatase 57 Troponin I B-Natriuretic Peptide TSH 09/28/16 09/29/16 09/29/16 21:34 04:34 04:34 WBC 9.6 Hgb 11.5 Hct 35.3 Plt Count 191 INR APTT Sodium Potassium Chloride Carbon Dioxide BUN Creatinine Glucose Calcium Magnesium Total Bilirubin AST ALT Alkaline Phosphatase Troponin I 0.70 H* 0.50 H* B-Natriuretic Peptide TSH 09/29/16 09/29/16 09/29/16 04:34 04:34 04:34 WBC Hgb Hct Plt Count INR 1.2 APTT 66.8 H D Sodium Potassium Chloride Carbon Dioxide BUN Creatinine Glucose Calcium Magnesium Total Bilirubin AST ALT Alkaline Phosphatase Troponin I B-Natriuretic Peptide 684 H TSH 0.123 L Short CBC 09/29/16 09/28/16 Range/Units 04:34 21:34 WBC 9.6 12.0 H (4.3-11.1) K/mcL Hgb 11.5 12.1 (11.5-15.4) g/dL Hct 35.3 37.1 (35.3-44.9) % Plt Count 191 203 (140-400) K/mcL Neutrophils # 11.0 H (1.6-8.9) K/mcL [facility] 09/28/16 Range/Units 21:34 Sodium 135 L (136-145) mEq/L Potassium 4.0 (3.5-4.5) mEq/L Chloride 104 (98-109) mEq/L Carbon Dioxide 19 (19-29) mEq/L BUN 15 (7-20) mg/dL Creatinine 1.41 H (0.57-1.11) mg/dL Glucose 135 H (70-99) mg/dL Calcium 9.9 (8.6-10.8) mg/dL Cardiac Enzymes 09/29/16 09/28/16 Range/Units 04:34 21:34 Troponin I 0.50 H* 0.70 H* (0-0.03) ng/mL Liver Function 09/28/16 Range/Units 21:34 Total Bilirubin 0.6 (0.2-1.2) mg/dL AST 25 (5-34) Units/L ALT 16 (0-55) Units/L Alkaline Phosphatase 57 (38-126) Units/L Albumin 3.0 L (3.5-5.0) g/dL Urine 09/29/16 Range/Units 05:01 Urine Color Yellow (Yellow) Urine Clarity Cloudy A (Clear) Urine pH 5.5 (5.0-8.0) pH Units Ur Specific [place] 1.023 (1.010-1.025) Urine Protein 100 H (Neg-Trace) mg/dL Urine Glucose (UA) >=1000 H (Normal) mg/dL Impressions Chest CT 09/28/16 23:02 IMPRESSION: Minimal multifocal ground-glass opacities are seen bilaterally. These findings are nonspecific but could be related to opportunistic pneumonia, hypersensitivity pneumonitis, pulmonary edema, or chronic interstitial disease. . D/ / Remedios Stevenson MD / Remedios Stevenson MD Interpreting Provider: Remedios Stevenson MD Active Medications Acetaminophen (Tylenol) 650 mg PO Q6HR PRN PRN Reason: Mild Pain (1-3) Stop: 03/30/17 20:46 Al Hydrox/Mg Hydrox/Simethicone (Maalox) 15 ml PO Q6HR PRN PRN Reason: Dyspepsia Stop: 03/30/17 20:46 Albuterol Sulfate (Proventil Neb) 2.5 mg IH Q2H PRN PRN Reason: Shortness Of Breath/Wheezing Stop: 03/30/17 20:46 Albuterol/Ipratropium (Duoneb) 3 ml IH QIDR NELLIE Stop: 03/30/17 23:01 Last Admin: 09/29/16 04:01 Dose: 3 ml Alprazolam (Xanax) 0.25 mg PO HS NELLIE PRN Reason: Protocol Stop: 03/30/17 21:01 Last Admin: 09/28/16 21:37 Dose: 0.25 mg Amlodipine Besylate (Norvasc) 10 mg PO DAILY NELLIE Stop: 03/31/17 09:01 Last Admin: 09/29/16 08:06 Dose: 10 mg Aspirin (Aspirin Ec) 81 mg PO DAILY [facility] Stop: 03/31/17 09:01 Last Admin: 09/29/16 08:06 Dose: 81 mg Benzonatate (Tessalon) 200 mg PO TID PRN PRN Reason: Cough Stop: 03/30/17 22:07 Clopidogrel Bisulfate (Plavix) 75 mg PO QPM [facility] Stop: 03/31/17 18:01 Dextrose/Water (Dextrose 50% (Syg)) 25 ml IVP AD PRN PRN Reason: Hypoglycemia Stop: 03/30/17 21:03 Docusate Sodium (Colace) 100 mg PO BID [facility] Stop: 03/30/17 21:01 Last Admin: 09/29/16 08:05 Dose: 100 mg Famotidine (Pepcid) 20 mg PO BID [facility] Stop: 03/30/17 21:01 Last Admin: 09/29/16 08:06 Dose: 20 mg Fenofibrate (Tricor) 162 mg PO HS [facility] Stop: 03/30/17 21:01 Last Admin: 09/28/16 21:37 Dose: 162 mg Fluoxetine HCl (Prozac) 40 mg PO QPM NELLIE Stop: 03/31/17 18:01 Gabapentin (Neurontin) 300 mg PO TID [facility] Stop: 03/30/17 21:01 Last Admin: 09/29/16 08:06 Dose: 300 mg Glucagon (Glucagen) 1 mg IM ONCE PRN PRN Reason: Hypoglycemia Stop: 03/30/17 21:03 Glucose (Gluctose) 15 gm PO ONCE PRN PRN Reason: Hypoglycemia Stop: 03/30/17 21:03 Glucose (Gluctose) 30 gm PO ONCE PRN PRN Reason: Hypoglycemia Stop: 03/30/17 21:03 Guaifenesin (Mucinex) 600 mg PO BID NELLIE Stop: 03/31/17 09:01 Last Admin: 09/29/16 08:05 Dose: 600 mg Heparin Sodium (Porcine) (Heparin) 4,000 unit IVP Q6HR PRN PRN Reason: SEE COMMENTS Stop: 03/30/17 20:46 Heparin Sodium (Porcine) (Heparin) 2,000 unit IVP Q6H PRN PRN Reason: SEE COMMENTS Stop: 03/30/17 20:46 Sodium Chloride (0.9 % Sodium Chloride) 1,000 mls @ 50 mls/hr IVC .Q20H NELLIE Stop: 03/30/17 20:46 Last Admin: 09/28/16 21:37 Dose: 50 mls/hr Heparin Sodium/Dextrose (Heparin 25,000 Unit/500 Ml D5w) 25,000 unit in 500 mls @ 19.928 mls/hr IVC .Q24H NELLIE; 9.4 UNIT/KG/HR PRN Reason: Protocol Stop: 03/30/17 20:46 Last Titration: 09/29/16 05:45 Dose: 9.4 unit/kg/hr, 19.928 mls/hr Dextrose (Dextrose 5%) 1,000 mls @ 100 mls/hr IV CONT PRN PRN Reason: HYPOGLYCEMIA Stop: 03/30/17 21:03 Levofloxacin/Dextrose (Levaquin 750mg/150 Ml) 750 mg in 150 mls @ 100 mls/hr IVPB DAILY NELLIE PRN Reason: Protocol Stop: 03/31/17 09:01 Last Admin: 09/29/16 08:04 Dose: 100 mls/hr Piperacillin Sod/Tazobactam (Sod 3.375 gm/ Dextrose) 100 mls @ 25 mls/hr IVPB Q8HR NELLIE PRN Reason: Protocol Stop: 03/31/17 08:01 Insulin Human Lispro (Humalog) 0 units SQ TIDAC NELLIE PRN Reason: Protocol Stop: 03/31/17 07:31 Last Admin: 09/29/16 07:58 Dose: 300 units Insulin Human Lispro (Humalog) 0 units SQ HS NELLIE PRN Reason: Protocol Stop: 03/30/17 21:16 Last Admin: 09/28/16 21:23 Dose: Not Given Levothyroxine Sodium (Synthroid) 125 mcg PO DAILY NELLIE Stop: 03/31/17 09:01 Last Admin: 09/29/16 08:05 Dose: 125 mcg Magnesium Hydroxide (Milk Of Magnesia Conc) 10 ml PO DAILY PRN PRN Reason: Indigestion Stop: 03/30/17 20:46 Melatonin (Melatonin) 3 mg PO HS [facility] Stop: 03/30/17 22:16 Last Admin: 09/28/16 22:49 Dose: 3 mg Metoprolol Succinate (Toprol Xl) 25 mg PO QPM [facility] Stop: 03/31/17 18:01 Metoprolol Tartrate (Lopressor) 5 mg IVP Q6HR PRN PRN Reason: SEE COMMENTS Stop: 03/30/17 20:46 Montelukast Sodium (Singulair) 10 mg PO [facility] Stop: 03/31/17 21:01 Morphine Sulfate (Morphine Sulfate) 2 mg IVP Q2H PRN PRN Reason: Severe Pain (7-10) Stop: 03/30/17 20:46 Naloxone HCl (Narcan) 0.4 mg IVP Q2MIN PRN PRN Reason: Opioid Reversal Stop: 03/30/17 20:46 Nicotine (Nicoderm) 21 mg TD DAILY [facility] Stop: 03/30/17 20:46 Last Admin: 09/29/16 08:00 Dose: 21 mg Nitroglycerin (Nitroglycerin) 0.4 mg SL Q5MIN PRN PRN Reason: Chest Pain Stop: 03/30/17 20:46 Nitroglycerin (Nitroglycerin) 0.4 mg SL Q5MIN PRN PRN Reason: Chest Pain Stop: 03/30/17 21:01 Ondansetron HCl (Zofran) 4 mg IVP Q6HR PRN PRN Reason: Nausea And Vomiting Stop: 03/30/17 20:46 Oxycodone HCl (Roxicodone) 10 mg PO Q6HR PRN PRN Reason: Moderate Pain (4-6) Stop: 03/30/17 20:46 Last Admin: 09/29/16 08:35 Dose: 10 mg Prednisone (Prednisone) 40 mg PO DAILY [facility] Stop: 03/31/17 09:01 Last Admin: 09/29/16 08:05 Dose: 40 mg Simvastatin (Zocor) 40 mg PO [facility] PRN Reason: Protocol Stop: 03/30/17 21:01 Last Admin: 09/28/16 21:37 Dose: 40 mg - Imaging and Cardiology Cardiac cath: report reviewed (04/23/16--severe 1 vessel CAD, EF 65%, s/p PTCA/ EVERARDO in mid RCA.) - EKG Interpretation EKG results cardiology: personally reviewed (SR, no significant change from prior), other (12 hour tele AVG HR 58, SR, no significant pauses or arrhythmias. ) Consult Discharge Plan - Plan Referrals: Amy Ocampo, [employer] MANAGER [Primary Care Provider] - <Daniel Bryant - Last Filed: 09/29/16 11:37> Date of Encounter: 09/29/16 Assessment and Plan Discussion w patient/family: The assessment and plan as outlined above was discussed with the patient and/or family members who expressed understanding and agreement. All questions were answered. Thank you for involving us in the care of your patient. Please call with any questions. History of Present Illness History of present illness: Ms. Stein is a 61 year old female All Systems Review: A 10-system review of systems was performed and is negative for pertinent findings except as documented above in the HPI. Physical Examination Vital Signs, Last 4 Hours Temp Pulse Resp BP Pulse Ox 09/29/16 11:28 98 F 56 16 149/74 97 Results 09/29/16 04:34 09/28/16 21:34 Lab Results 09/28/16 09/28/16 09/28/16 21:34 21:34 21:34 WBC 12.0 H Hgb 12.1 Hct 37.1 Plt Count 203 INR 1.2 APTT 35.6 Sodium 135 L Potassium 4.0 Chloride 104 Carbon Dioxide 19 BUN 15 Creatinine 1.41 H Glucose 135 H Calcium 9.9 Magnesium 1.7 Total Bilirubin 0.6 AST 25 ALT 16 Alkaline Phosphatase 57 Troponin I B-Natriuretic Peptide TSH 09/28/16 09/29/16 09/29/16 21:34 04:34 04:34 WBC 9.6 Hgb 11.5 Hct 35.3 Plt Count 191 INR APTT Sodium Potassium Chloride Carbon Dioxide BUN Creatinine Glucose Calcium Magnesium Total Bilirubin AST ALT Alkaline Phosphatase Troponin I 0.70 H* 0.50 H* B-Natriuretic Peptide TSH 09/29/16 09/29/16 09/29/16 04:34 04:34 04:34 WBC Hgb Hct Plt Count INR 1.2 APTT 66.8 H D Sodium Potassium Chloride Carbon Dioxide BUN Creatinine Glucose Calcium Magnesium Total Bilirubin AST ALT Alkaline Phosphatase Troponin I B-Natriuretic Peptide 684 H TSH 0.123 L 09/29/16 10:11 WBC Hgb Hct Plt Count INR APTT Sodium Potassium Chloride Carbon Dioxide BUN Creatinine Glucose Calcium Magnesium Total Bilirubin AST ALT Alkaline Phosphatase Troponin I 0.39 H* B-Natriuretic Peptide TSH - Attending Attestation For this encounter, I have reviewed the COMMISSARY SUPERINTENDENT or PA documentation, treatment plan, and medical decision making; and I have had face to face time with this patient. Details as per COMMISSARY SUPERINTENDENT note Briefly : CP appears to be atypical , not like her previous cardiac pain no diaphoresis did not take NTG VSS Obese JVD: 6-7 cm Chest: clear , exp wheezes CVS: no murmur gallops , rubs EKG: reviewed by me shows no acute changes ECHO: normal EF Imp: CP does not appear to be cardiac in nature Mild Trop leak due to COPD Plan; cont present rx if CP persists may want to consider a stress test Thanks
--- NOTE | 2016-09-29 10:28 | Internal Med Progress Note ---
Date of Encounter: 09/29/16 Time of Encounter: 10:24 - Assessment and plan (1) Decompensated COPD with exacerbation (chronic obstructive pulmonary disease) Current Visit: Yes Status: Acute Assessment and plan: COPD Exacerbation : - on IV antibiotics ( day 2) - On PO prednisone - Inhaled BDAs - she is feeling much better. - noted her A1C is 5.6 and recent POC is 447 - this is likely secondary to PO steroids and will continue sliding scale. - close observation. (2) Elevated troponin I measurement Current Visit: Yes Status: Acute Assessment and plan: likely demand ischimia. cardiology on board and will follow recommendations. (3) CAD (coronary artery disease) Current Visit: Yes Status: Chronic Assessment and plan: stable CAD Qualifiers: Coronary Disease-Associated Artery/Lesion type: [place] artery [place] vs. transplanted heart: [place]roquois heart Associated angina: angina presence unspecified Qualified Code(s): I25.10 - Atherosclerotic heart disease of [place]roquois coronary artery without angina pectoris (4) Diabetes mellitus type 2 in obese Current Visit: Yes Status: Chronic Assessment and plan: will continue present treatment and will control blood sugar. (5) Chronic kidney disease, stage 3 Current Visit: Yes Status: Chronic Assessment and plan: will recheck labs tomorrow medical decision making: patient has mild to moderate risk of worsening in spite being on appropriate treatment. - Subjective Interval history: seen and examined. denies chest pain. has SOB and occasional cough. noted that family members at bedside. - Constitutional Vitals: Temp Pulse Resp BP Pulse Ox 97.4 F L 55 16 152/77 93 L 09/29/16 07:34 09/29/16 07:34 09/29/16 07:34 09/29/16 07:34 09/29/16 07:34 General appearance: Present: cooperative, mild distress, A&O X 3, morbidly obese , answers questions appropriately - Head Head exam: Present: atraumatic, normocephalic - Eye Eye exam: Present: PERRL, conjuntiva pink, sclera anicteric Pupils: Present: PERRL - Neck Neck exam general surgery: Present: supple, trachea midline. Absent: lymphadenopathy - Respiratory Respiratory exam: Present: CTAB. Absent: accessory muscle use, rales, rhonchi, wheezes - Cardiovascular Cardiovascular exam: Present: RRR, +S1, +S2. Absent: diastolic murmur, gallop, rubs, systolic murmur - GI/Abdominal GI/Abdominal exam: Present: normal bowel sounds, soft, no peritoneal signs. Absent: distended, tenderness - Extremities Exam Extremities exam: Present: warm, radial pulses palpable and symetrical. Absent : calf tenderness, cyanotic, pedal edema - Neurological Exam Neurological exam: Present: CN II-XII intact, oriented X3, no focal deficits. Absent: pronater drift, facial droop, speech deficit - Skin Skin exam: Present: dry, intact Internal Medicine: Result - Labs CBC & Chem 7: 09/29/16 04:34 09/28/16 21:34 Labs: Short CBC 09/28/16 09/29/16 Range/Units 21:34 04:34 WBC 12.0 H 9.6 (4.3-11.1) K/mcL Hgb 12.1 11.5 (11.5-15.4) g/dL Hct 37.1 35.3 (35.3-44.9) % Plt Count 203 191 (140-400) K/mcL Neutrophils # 11.0 H (1.6-8.9) K/mcL BMP 09/28/16 21:34 Sodium 135 L Potassium 4.0 Chloride 104 Carbon Dioxide 19 BUN 15 Creatinine 1.41 H Glucose 135 H Calcium 9.9 Cardiac Enzymes 09/28/16 09/29/16 Range/Units 21:34 04:34 Troponin I 0.70 H* 0.50 H* (0-0.03) ng/mL Liver Function 09/28/16 Range/Units 21:34 Total Bilirubin 0.6 (0.2-1.2) mg/dL AST 25 (5-34) Units/L ALT 16 (0-55) Units/L Alkaline Phosphatase 57 (38-126) Units/L Albumin 3.0 L (3.5-5.0) g/dL Urine 09/29/16 Range/Units 05:01 Urine Color Yellow (Yellow) Urine Clarity Cloudy A (Clear) Urine pH 5.5 (5.0-8.0) pH Units Ur Specific [place] 1.023 (1.010-1.025) Urine Protein 100 H (Neg-Trace) mg/dL Urine Glucose (UA) >=1000 H (Normal) mg/dL - ABG Interpretation ABG results: PT/INR, D-dimer PT 13.5 Seconds (9.4-12.1) H 09/29/16 04:34 - Impressions Impressions Chest CT 09/28/16 23:02 IMPRESSION: Minimal multifocal ground-glass opacities are seen bilaterally. These findings are nonspecific but could be related to opportunistic pneumonia, hypersensitivity pneumonitis, pulmonary edema, or chronic interstitial disease. . D/ / Remedios Stevenson MD / Remedios Stevenson MD Interpreting Provider: Remedios Stevenson MD Consult Discharge Plan - Plan Referrals: Amy Ocampo, [employer] STORE MARKETING ASSOCIATE [Primary Care Provider] -
[2016-09-29] MEDS: *HR* Heparin 5,000 UNIT/ML VIAL SQ SCH ×2 (11:28→22:30)
[2016-09-29 11:36] LABS: Adenovirus Not Detected (Not Detect); Bordetella Pertussis Not Detected (Not Detect); Chlamydophila pneumoniae Not Detected (Not Detect); Coronavirus 229E Not Detected (Not Detect); Coronavirus HKU1 Not Detected (Not Detect); Coronavirus NL63 Not Detected (Not Detect); Coronavirus OC43 Not Detected (Not Detect); Human Metapneumovirus Not Detected (Not Detect); Human Rhinovirus/Enterovirus Not Detected (Not Detect); Influenza A Subtype 2009 H1 Not Detected (Not Detect); Influenza A Untypeable Not Detected (Not Detect); Influenza B Not Detected (Not Detect); Mycoplasma pneumoniae Not Detected (Not Detect); Parainfluenza Virus 1 Not Detected (Not Detect); Parainfluenza Virus 2 Not Detected (Not Detect); Parainfluenza Virus 3 Not Detected (Not Detect); Parainfluenza Virus 4 Not Detected (Not Detect); Respiratory Syncytial Virus Not Detected (Not Detect)
--- NOTE | 2016-09-29 11:54 | ECHO - Doppler Report ---
Echocardiogram Name: Maday Stein Date of Study: 09/29/2016 Date: 1955 Ht: 66.0 in Medical Record#: [id number] Age: 61 Wt: 233.0 lb Gender: Female BSA: 2.13 Order #: [id number] Location: [facility] Room #: [id number] Reading Physician: Ayaz Medina DO, FACC, JAI, DELFINO Paper Rewinder Operator: Ashley Caceres RVT, RD Ordering Physician: Arnold Petersen MD Primary Physician: Amy Ocampo NP Indications: Acute coronary syndrome Impressions: LVEF 55-60%. Normal LV chamber size and wall thickness. Not all LV segments were well visualized, but overall LV function appears normal. Mild left ventricular diastolic dysfunction. Normal right ventricular structure and function. No evidence of pulmonary hypertension. No significant valvular dysfunction. Reported difficult IV access and unable to give Definity. Findings: Study Quality * Technically sub-optimal due to poor echocardiographic windows. ECG Findings * Sinus bradycardia. Left Ventricle * LVEF 55-60%. * Normal LV chamber size and wall thickness. Not all LV segments were well visualized, but overall LV function appears normal. * Mild left ventricular diastolic dysfunction. Right Ventricle * Normal right ventricular structure and function. Left Atrium * Mildly dilated left atrium. Right Atrium * Normal right atrial size. Interatrial Septum * Interatrial septum not well evaluated. Aortic Valve * Trileaflet aortic valve. * Mildly sclerotic aortic valve leaflets. * No aortic regurgitation. * No aortic stenosis. Mitral Valve * Normal mitral valve structure and function. * Trace mitral regurgitation. * No mitral stenosis. Tricuspid Valve * Normal tricuspid valve structure and function. * Trace tricuspid regurgitation. * No evidence of pulmonary hypertension. Pulmonic Valve * Pulmonic valve not well visualized. Aorta * Normally sized aortic root. Pericardium * The pericardium appears normal. IVC * Normal IVC dimensions and inspiratory collapse. Pulmonary Artery * Normal visualized portions of the main pulmonary artery. History Hypertension Diabetes Hypercholesteremia History of Smoking Years 43 Packs 1 Family History of CAD History of CAD/PTCA Myocardial Infarction Measurements: BP: 152/ 77 2D Normal Values RVIDd: 3.60 cm <2.7 cm IVSd: 1.10 cm 0.6 - 1.0 cm LVIDd: 4.80 cm 3.7 - 5.6 cm LVPWd: 1.10 cm 0.6 - 1.1 cm LVIDs: 3.40 cm 1.5 - 3.6 cm AO: 2.70 cm < 4.0 cm LA: 3.60 cm 2.0 - 4.0cm %FS: 29.20 cm >25 % LA volume: 50 Mitral Valve Peak E:.91 m/sec Peak A:.97 m/sec E/A Ratio:0.9 Tricuspid Valve TV Regurg Peak Grad: 19.00mmHg TV Regurg Peak Shemar: 2.16m/sec Updated by Ayaz Medina DO, GILBERT, JAI, DELFINO on 09/29/2016 11:49:31 AM electronically signed on 09/29/2016 11:50:48 AM with status of Final
--- NOTE | 2016-09-29 12:55 | Event Note ---
Date of Encounter: 09/29/16 Time of Encounter: 12:55 - Cardiology Event Note Echo resulted--EF 55-60%, mild diastolic dysfunction. No wall motion abnormalities noted. Cardiology is signing off. Reconsult PRN.
[2016-09-29] MEDS: Piperacillin/Tazobactam 3.375 GM in D5% in Water (Mini-Bag+) 100 ML IVPB SCH ×2 (14:27→19:01)
[2016-09-29] MEDS: Mag Hydrox/Al Hydrox/Simeth 30 ML UDC PO PRN (14:39)
[2016-09-29] MEDS: FLUoxetine 20 MG CAPSULE PO SCH (18:58)
[2016-09-29] MEDS: Metoprolol XL (24 HR) Succ 25 MG TAB.ER.24H PO SCH (18:58)
[2016-09-29] MEDS: Fenofibrate 54 MG TABLET PO SCH (22:20)
[2016-09-29] MEDS: Melatonin 3 MG TABLET PO SCH (22:35)
[2016-09-29] MEDS: ALPRAZolam 0.25 MG TABLET PO SCH (22:35)
[2016-09-30] MEDS ORDERED: Pantoprazole 40 MG VIAL IVP ONE (00:59)
[2016-09-30 01:19] LABS: Hematocrit 37.3 % (35.3-44.9); Mean Corpuscular HGB Conc 32.2 g/dL (31.6-35.5); Mean Corpuscular Hemoglobin 27.4 pg (28.0-33.3); Mean Corpuscular Volume 85.2 fL (83.0-100.0); Mean Platelet Volume 10.3 fL (9.4-12.4); Platelet Count 225 K/mcL (140-400); Red Blood Count 4.38 M/mcL (3.82-4.97)
[2016-09-30] MEDS: *HR* Morphine 2 MG/ML SYRINGE IVP PRN ×2 (01:27→10:28)
[2016-09-30] MEDS: Piperacillin/Tazobactam 3.375 GM in D5% in Water (Mini-Bag+) 100 ML IVPB SCH ×3 (03:44→18:00)
[2016-09-30] MEDS: Ipratropium/Albuterol Neb 3 ML IH SCH ×4 (05:04→23:46)
[2016-09-30] MEDS: Insulin LISPRO 300 UNITS/3 ML VIAL SQ SCH ×4 (10:22→21:03)
[2016-09-30] MEDS: predniSONE 20 MG TABLET PO SCH (10:23)
[2016-09-30] MEDS: Gabapentin 300 MG CAPSULE PO SCH ×3 (10:23→21:01)
[2016-09-30] MEDS: amLODIPine 5 MG TABLET PO SCH (10:24)
[2016-09-30] MEDS: Aspirin Enteric Coated 81 MG Tablet PO SCH (10:24)
[2016-09-30] MEDS: Famotidine 20 MG TABLET PO SCH (10:24)
[2016-09-30] MEDS: *HR* Heparin 5,000 UNIT/ML VIAL SQ SCH ×2 (10:25→21:01)
[2016-09-30] MEDS: 0.9 % Sodium Chloride 1,000 ML IVC SCH (10:25)
[2016-09-30] MEDS: Nicotine 21 MG PATCH.TD24 TD SCH (10:25)
[2016-09-30] MEDS: *HR* OxyCODONE Immed Rel 5 MG TABLET PO PRN ×2 (11:22→21:11)
[2016-09-30] MEDS: Bisacodyl 10 MG RECTAL SUPPOSITORY RC PRN (11:22)
[2016-09-30 11:36] LABS: Calcium 9.8 mg/dL (8.6-10.8); Potassium 3.9 mEq/L (3.5-4.5)
--- NOTE | 2016-09-30 16:15 | Internal Med Progress Note ---
<Ivan Bonilla - Last Filed: 09/30/16 16:45> Date of Encounter: 09/30/16 Time of Encounter: 10:10 - Assessment and plan (1) Decompensated COPD with exacerbation (chronic obstructive pulmonary disease) Current Visit: Yes Status: Acute Assessment and plan: Mrs. Stein was admitted with COPD exacerbation on 2.5 L of oxygen to maintain oxygen saturations greater than 90%. She feels well today and better compared to admission. Plan: -Continue DuoNeb 4 times a day scheduled - Continue PRN albuterol nebulizer. - Continue Singulair 10 mg by mouth at bedtime - Continue prednisone 40 mg by mouth daily - Continue Levaquin every 48 hours (2) Elevated troponin I measurement Current Visit: Yes Status: Acute Assessment and plan: Suspected demand ischemia. Patient was seen by cardiology, who have now signed off. (3) CAD (coronary artery disease) Current Visit: Yes Status: Chronic Assessment and plan: Patient has known coronary artery disease. History of left heart catheter April 2016 with single-vessel drug-eluting stent in the RCA. -Continue simvastatin 40 mg by mouth at bedtime - Continue beta jessica, Plavix, aspirin Qualifiers: Coronary Disease-Associated Artery/Lesion type: [place] artery [place] vs. transplanted heart: [place] heart Associated angina: angina presence unspecified Qualified Code(s): I25.10 - Atherosclerotic heart disease of [place] coronary artery without angina pectoris (4) Chronic kidney disease, stage 3 Current Visit: Yes Status: Chronic Assessment and plan: Patient is a history of CKD stage III with current creatinine 1.19 improved from yesterday 1.41. GFR is 46 today. Plan: - Continue normal saline at 50 ML's per hour. Monitor renal function with a.m. labs. - Continue renally dosing medications and avoiding nephrotoxic drugs. (5) Diabetes mellitus type 2 in obese Current Visit: Yes Status: Chronic Assessment and plan: Patient is a known type II diabetic who is on glipizide and Tradjenta at home , hemoglobin A1c on 09/29/2016 was 5.6. Glucoses have been elevated likely secondary to steroids. Plan: -Continue high dose insulin sliding scale. (6) Hypothyroidism Current Visit: Yes Status: Acute Assessment and plan: Known history of hypothyroidism with a TSH of 0.123. Plan: - Continue home dose of levothyroxine at 125mcg po daily Qualifiers: Qualified Code(s): E03.9 - Hypothyroidism, unspecified (7) HTN (hypertension) Current Visit: Yes Status: Acute Assessment and plan: Patient has no history of hypertension with current elevated blood pressures. Plan: - Continue Norvasc 10 mg by mouth daily - Continue Toprol XL 25 mg by mouth scheduled - Continue to monitor blood pressures. Qualifiers: Qualified Code(s): I10 - Essential (primary) hypertension (8) Epigastric pain Current Visit: Yes Status: Acute Assessment and plan: Patient plays epigastric pain as started last evening is described as sharp and radiating to her back. Right upper quadrant ultrasound did not demonstrate any cholelithiasis or gallbladder wall thickening. She has been on steroids and anticoagulation with a history of GERD there is concern for possible gastritis versus gastric or duodenal ulceration. Patient also complains of trouble with swallowing. She has not had solid food since her admission. Plan: -GI consultation has been placed and discussed with Dr. Schafer for EGD in the a.m. - Nothing by mouth after midnight. - Subjective Interval history: Mrs. Everett has been seen and evaluated patient bedside this morning. She is alert awake interactive in no acute distress. She said that last evening she started having epigastric discomfort described as sharp and radiating to her back has been constant. She denies any nausea or vomiting but said that the epigastric pain as been uncomfortable. She does have a history of GERD and takes a PPI at home. She denies any history of ulcers or gastritis. She denies any recent bowel movements and has been constipated for several days. She denies any sweating, chest pain, chest pressure, shortness of breath or palpitations. She denies any diarrhea or blood in sputum or per rectum. - Constitutional Vitals: Temp Pulse Resp BP Pulse Ox 98.4 F 52 14 150/114 86 L 09/30/16 15:14 09/30/16 15:14 09/30/16 15:14 09/30/16 15:14 09/30/16 15:14 General appearance: Present: cooperative, mild distress, A&O X 3, morbidly obese , answers questions appropriately - Head Head exam: Present: atraumatic, normocephalic - Eye Eye exam: Present: PERRL, conjuntiva pink, sclera anicteric Pupils: Present: PERRL - Neck Neck exam general surgery: Present: supple, trachea midline. Absent: lymphadenopathy - Respiratory Respiratory exam: Present: CTAB. Absent: accessory muscle use, rales, rhonchi, wheezes - Cardiovascular Cardiovascular exam: Present: RRR, +S1, +S2. Absent: diastolic murmur, gallop, rubs, systolic murmur - GI/Abdominal GI/Abdominal exam: Present: normal bowel sounds, soft, tenderness, no peritoneal signs. Absent: distended Additional comments: Slightly tender to palpation of the epigastric region. - Extremities Exam Extremities exam: Present: warm, radial pulses palpable and symetrical. Absent : calf tenderness, cyanotic, pedal edema - Neurological Exam Neurological exam: Present: alert, oriented X3, no focal deficits. Absent: pronater drift, facial droop, speech deficit - Psychiatric Psychiatric exam: Present: normal affect, normal mood - Skin Skin exam: Present: dry, intact Internal Medicine: Result - Labs CBC & Chem 7: 09/30/16 01:12 09/30/16 11:13 Labs: Short CBC 09/30/16 Range/Units 01:12 WBC 16.4 H D (4.3-11.1) K/mcL Hgb 12.0 (11.5-15.4) g/dL Hct 37.3 (35.3-44.9) % Plt Count 225 (140-400) K/mcL BMP 09/30/16 11:13 Sodium 137 Potassium 3.9 Chloride 105 Carbon Dioxide 22 BUN 25 H D Creatinine 1.19 H Glucose 191 H Calcium 9.8 Cardiac Enzymes 09/30/16 09/30/16 Range/Units 01:12 11:13 Troponin I 0.23 H* 0.16 H* (0-0.03) ng/mL - ABG Interpretation ABG results: PT/INR, D-dimer PT 13.5 Seconds (9.4-12.1) H 09/29/16 04:34 - Impressions Impressions Gallbladder Ultrasound 09/30/16 09:00 IMPRESSION: Limited examination. Possible minimal sludge in the gallbladder neck. No gallstones are identified. No acute abnormality in the right upper quadrant. D/ / 09/30/2016 10:11:47 Yomaira Allen MD / earnold Interpreting Provider: Yomaira Allen MD Consult Discharge Plan - Plan Referrals: Amy Ocampo, [employer] BEADING MACHINE TENDER [Primary Care Provider] - <Henri Nick - Last Filed: 09/30/16 18:40> Date of Encounter: 09/30/16 - Assessment and plan (1) Decompensated COPD with exacerbation (chronic obstructive pulmonary disease) Current Visit: Yes Status: Acute (2) Elevated troponin I measurement Current Visit: Yes Status: Acute (3) CAD (coronary artery disease) Current Visit: Yes Status: Chronic Qualifiers: Coronary Disease-Associated Artery/Lesion type: [place] artery [place] vs. transplanted heart: [place] heart Associated angina: angina presence unspecified Qualified Code(s): I25.10 - Atherosclerotic heart disease of [place] coronary artery without angina pectoris (4) Diabetes mellitus type 2 in obese Current Visit: Yes Status: Chronic (5) Chronic kidney disease, stage 3 Current Visit: Yes Status: Chronic - Constitutional Vitals: Temp Pulse Resp BP Pulse Ox 98.4 F 52 14 150/114 86 L 09/30/16 15:14 09/30/16 15:14 09/30/16 16:17 09/30/16 16:17 09/30/16 16:17 Internal Medicine: Result - Labs CBC & Chem 7: 09/30/16 01:12 09/30/16 11:13 Labs: Short CBC 09/30/16 Range/Units 01:12 WBC 16.4 H D (4.3-11.1) K/mcL Hgb 12.0 (11.5-15.4) g/dL Hct 37.3 (35.3-44.9) % Plt Count 225 (140-400) K/mcL BMP 09/30/16 11:13 Sodium 137 Potassium 3.9 Chloride 105 Carbon Dioxide 22 BUN 25 H D Creatinine 1.19 H Glucose 191 H Calcium 9.8 Cardiac Enzymes 09/30/16 09/30/16 Range/Units 01:12 11:13 Troponin I 0.23 H* 0.16 H* (0-0.03) ng/mL - ABG Interpretation ABG results: PT/INR, D-dimer PT 13.5 Seconds (9.4-12.1) H 09/29/16 04:34 - Impressions Impressions Gallbladder Ultrasound 09/30/16 09:00 IMPRESSION: Limited examination. Possible minimal sludge in the gallbladder neck. No gallstones are identified. No acute abnormality in the right upper quadrant. D/ / 09/30/2016 10:11:47 Yomaira Allen MD / erica Interpreting Provider: Yomaira Allen MD - Attending Attestation I examined this patient and my medical decision-making was reviewed with the DOCK ATTENDANT/PA/Advanced Practice Nurse/Resident Physician. I agree with the documented findings, disposition and treatment plan as described except to the extent set forth below.
[2016-09-30] MEDS: Metoprolol XL (24 HR) Succ 25 MG TAB.ER.24H PO SCH (17:01)
[2016-09-30] MEDS: Sucralfate 1 GM TABLET PO SCH ×2 (17:01→21:01)
[2016-09-30] MEDS: FLUoxetine 20 MG CAPSULE PO SCH (17:01)
--- NOTE | 2016-09-30 17:09 | General Surgery Consult Note ---
<Aster Amaro A - Last Filed: 09/30/16 17:01> Date of Encounter: 09/30/16 Time of Encounter: 17:00 Assessment and Plan (1) Epigastric pain Current Visit: Yes Status: Acute PPI therapy BID Carafate QID Clear liquid diet NPO after midnight for possible EGD with Dr. Schafer- consent complete CT scan of abdomen/pelvis with PO contrast only today Supportive care/pain control (2) Leukocytosis Current Visit: Yes Status: Acute CT scan of abdomen/pelvis with PO contrast only today Repeat labs in the am Possible that this could be secondary to steroid therapy Qualifiers: Leukocytosis type: unspecified Qualified Code(s): D72.829 - Elevated white blood cell count, unspecified (3) Decompensated COPD with exacerbation (chronic obstructive pulmonary disease) Current Visit: Yes Status: Acute Management per medicine service History of Present Illness Consult date: 09/30/16 Reason for consult: abdominal pain (epigastric) Requesting physician: Ivan Bonilla History of present illness: 61 year old female originally presented to the ED at [facility] with complaints of shortness of breath 2 days ago. She was transferred to [place] for further work-up and treatment. She states that she had sudden onset of epigastric pain last night which has been constant. She describes it as a sharp , stabbing pain which radiates into her back. Denies ever having pain like this in the past. She states that the pain has improved after receiving narcotics. Denies any nausea/vomiting. Denies any aggrevating factors. Admits to constipation, denies any vomiting. Admits to dysphagia that has been present for "a while" and is progressive. She states that this occurs with all types of foods and liquids. She states that she feels like she is getting choked. She denies ever having a work-up for her dysphagia. She does admit to a history of heartburn. She states that she had an EGD complete approximately 5 years ago which showed evidence of reflux. She denies any weight loss. We have been asked to see and evaluate the patient for her epigastric discomfort. Past Med Surg Social Fam HX - Past Medical History Source: patient, old records reviewed Medical history: arthritis, asthma, cardiomyopathy, CHF, COPD, coronary artery disease, diabetes, GERD, hyperlipidemia, hypertension, myocardial infarction, osteoporosis, peripheral artery disease, renal disease, thyroid disease, other Psychiatric history: anxiety, depression, panic disorder, other - Past Surgical History Surgical History: angioplasty/stent (04/2016), breast surgery (X3 for recurrent infection), cataract, hysterectomy, orthopedic, other, MARÍA/BSO, other ( Tonsillectomy adenoidectomy; Fem/Fem bypass) - Social History Smoking Status: Current every day smoker Smokeless Tobacco Status: No Alcohol use: occasionally Drug use: none Current living situation: Home Activity Level: Independent ambulation - Family History Mother Living Status: Hx Family Cardiac Disorders: Yes Hx Family Cancer: Yes Hx Family Endocrine Disorder: Yes Medications and Allergies Alprazolam [Xanax 0.25 MG Tablet] 0.25 mg PO TID PRN 12/19/15 [History] Amlodipine Besylate 10 mg PO DAILY 12/19/15 [History] Ergocalciferol (VITAMIN D2) [Vitamin D2 (50,000 UNIT)] 50,000 unit PO PARK [History] FLUoxetine HCl [Prozac] 40 mg PO QPM 12/19/15 [History] Gabapentin [Neurontin] 300 mg PO TID 12/19/15 [History] Levothyroxine [Synthroid] 125 mcg PO DAILY 12/19/15 [History] Metoprolol XL (24 HR) Succ [Toprol Xl] 25 mg PO QPM 12/19/15 [History] Nitroglycerin 0.4 mg SL Q5MIN PRN 12/19/15 [History] Simvastatin [Zocor] 40 mg PO HS 12/19/15 [History] Cholecalciferol (Vitamin D3) [Vitamin D3] 2,000 unit PO DAILY 02/28/16 [History] Linagliptin [Tradjenta] 5 mg PO DAILY 02/28/16 [History] Aspirin Enteric Coated [Aspirin EC] 81 mg PO DAILY 03/21/16 [History] Clopidogrel [Plavix] 75 mg PO QPM 03/21/16 [History] Ranitidine HCl [Zantac] 300 mg PO DAILY 03/21/16 [History] Fenofibrate Nanocrystallized [Fenofibrate] 145 mg PO DAILY 09/29/16 [History] GlipiZIDE XL (24 HR) [Glucotrol XL] 10 mg PO BID 09/29/16 [History] OxyCODONE/APAP 5/325 [Percocet 5/325 MG] 1 tab PO Q6HR PRN 09/29/16 [History] Allergies No Known Allergies Allergy (Verified 04/24/16 08:30) Review of Systems All systems PM: reviewed and no additional remarkable complaints except as stated (in the HPI) All systems PM: A 10-system review of systems was performed and is negative for pertinent findings except as documented above in the HPI. General Surgery Exam Initial Vital Signs Temp Pulse Resp BP Pulse Ox 98.0 F 80 18 173/77 94 L 09/28/16 19:39 09/28/16 19:39 09/28/16 19:39 09/28/16 19:39 09/28/16 19:39 - General physical appearance well developed, well nourished, no distress, moderate pain - Eyes normal ocular movement - ENT normal mucosa, atraumatic, normocephalic - Neck trachea midline - Respiratory normal respiratory effort - Cardiovascular Cardiovascular exam: Present: RRR, NR - Abdomen Abdomen general surgery: Present: bowel sounds present, soft, tender Abdominal Tenderness: Present: epigastic, RUQ, LUQ - Integumentary Integumentary general surgery: Present: warm and dry - Neurologic Present: CN 2-12 grossly intact - Musculoskeletal Present: normal gait, normal posture Exam Initial Vital Signs Temp Pulse Resp BP Pulse Ox 98.0 F 80 18 173/77 94 L 09/28/16 19:39 09/28/16 19:39 09/28/16 19:39 09/28/16 19:39 09/28/16 19:39 Results - Labs 09/30/16 01:12 09/30/16 11:13 Abnormal lab results WBC 16.4 K/mcL (4.3-11.1) H D 09/30/16 01:12 MCH 27.4 pg (28.0-33.3) L 09/30/16 01:12 Neutrophils # 11.0 K/mcL (1.6-8.9) H 09/28/16 21:34 PT 13.5 Seconds (9.4-12.1) H 09/29/16 04:34 APTT 66.8 Seconds (26.0-36.0) H D 09/29/16 04:34 BUN 25 mg/dL (7-20) H D 09/30/16 11:13 Creatinine 1.19 mg/dL (0.57-1.11) H 09/30/16 11:13 Est GFR ( Amer) 56 (> 60) L 09/30/16 11:13 Est GFR (Non-Af Amer) 46 (> 60) L 09/30/16 11:13 Glucose 191 mg/dL (70-99) H 09/30/16 11:13 POC Glucose 465 (58-89) H* 09/29/16 09:50 Troponin I 0.16 ng/mL (0-0.03) H* 09/30/16 11:13 B-Natriuretic Peptide 684 pg/mL (0-100) H 09/29/16 04:34 Albumin 3.0 g/dL (3.5-5.0) L 09/28/16 21:34 Globulin 4.6 g/dL (2.4-3.5) H 09/28/16 21:34 Albumin/Globulin Ratio 0.7 (1.1-2.2) L 09/28/16 21:34 Triglycerides 196 mg/dL (< 150) H 09/29/16 04:34 VLDL Cholesterol, Calc 39 mg/dL (< 31) H 09/29/16 04:34 HDL Cholesterol 36 mg/dL (40-59) L 09/29/16 04:34 TSH 0.123 mcIU/mL (0.350-4.840) L 09/29/16 04:34 Urine Clarity Cloudy (Clear) A 09/29/16 05:01 Urine Protein 100 mg/dL (Neg-Trace) H 09/29/16 05:01 Urine Glucose (UA) >=1000 mg/dL (Normal) H 09/29/16 05:01 Urine Ketones Trace mg/dL (Negative) H 09/29/16 05:01 Urine Blood Large (Negative) H 09/29/16 05:01 Urine Microscopic RBC 5-15 per hpf (0-3) H 09/29/16 05:01 Urine Microscopic WBC 3-5 per hpf (0-3) H 09/29/16 05:01 Ur Squamous Epith Cells Many per lpf (None-Few) H 09/29/16 05:01 Urine Bacteria Many per hpf (None-Few) H 09/29/16 05:01 Diabetes panel 09/30/16 Range/Units 11:13 Sodium 137 (136-145) mEq/L Potassium 3.9 (3.5-4.5) mEq/L Chloride 105 (98-109) mEq/L Carbon Dioxide 22 (19-29) mEq/L BUN 25 H D (7-20) mg/dL Creatinine 1.19 H (0.57-1.11) mg/dL Glucose 191 H (70-99) mg/dL Calcium 9.8 (8.6-10.8) mg/dL Calcium panel 09/30/16 Range/Units 11:13 Calcium 9.8 (8.6-10.8) mg/dL Pituitary panel 09/30/16 Range/Units 11:13 Sodium 137 (136-145) mEq/L Potassium 3.9 (3.5-4.5) mEq/L Chloride 105 (98-109) mEq/L Carbon Dioxide 22 (19-29) mEq/L BUN 25 H D (7-20) mg/dL Creatinine 1.19 H (0.57-1.11) mg/dL Glucose 191 H (70-99) mg/dL Calcium 9.8 (8.6-10.8) mg/dL Adrenal panel 09/30/16 Range/Units 11:13 Sodium 137 (136-145) mEq/L Potassium 3.9 (3.5-4.5) mEq/L Chloride 105 (98-109) mEq/L Carbon Dioxide 22 (19-29) mEq/L BUN 25 H D (7-20) mg/dL Creatinine 1.19 H (0.57-1.11) mg/dL Glucose 191 H (70-99) mg/dL Calcium 9.8 (8.6-10.8) mg/dL All other labs normal. - Imaging US - abdomen: report reviewed Additional studies: Chest CT 09/28/16 23:02 IMPRESSION: Minimal multifocal ground-glass opacities are seen bilaterally. These findings are nonspecific but could be related to opportunistic pneumonia, hypersensitivity pneumonitis, pulmonary edema, or chronic interstitial disease. . D/ / Remedios Stevenson MD / Remedios Stevenson MD Interpreting Provider: Remedios Stevenson MD Gallbladder Ultrasound 09/30/16 09:00 IMPRESSION: Limited examination. Possible minimal sludge in the gallbladder neck. No gallstones are identified. No acute abnormality in the right upper quadrant. D/ / 09/30/2016 10:11:47 Yomaira Allen MD / [facility] Interpreting Provider: Yomaira Allen MD Consult Discharge Plan - Plan Referrals: Amy Ocampo, ACTUARY [Primary Care Provider] - - Attending Attestation I examined this patient and my medical decision-making was reviewed with the HRIS MANAGER/PA/Advanced Practice Nurse/Resident Physician. I agree with the documented findings, disposition and treatment plan as described except to the extent set forth below. <Jenifer Schafer - Last Filed: 10/01/16 08:17> Date of Encounter: 09/30/16 Assessment and Plan (1) Epigastric pain Current Visit: Yes Status: Acute discussed with patient will obtain CT scan of abdomen, if no pathology found that accounts for her pain then will plan EGD start PPI and carafate clears tonight and npo midnight Review of Systems All systems PM: A 10-system review of systems was performed and is negative for pertinent findings except as documented above in the HPI. General Surgery Exam Initial Vital Signs Temp Pulse Resp BP Pulse Ox 98.0 F 80 18 173/77 94 L 09/28/16 19:39 09/28/16 19:39 09/28/16 19:39 09/28/16 19:39 09/28/16 19:39 - General physical appearance well nourished, no distress, moderate pain, obese - Eyes PERRL, normal ocular movement - ENT normal mucosa, atraumatic, normocephalic - Respiratory normal expansion, normal respiratory effort - Cardiovascular Cardiovascular exam: Present: RRR - Abdomen Abdomen general surgery: Present: bowel sounds present, soft, tender. Absent: distended, guarding, rebound Abdominal Tenderness: Present: epigastic - Integumentary Integumentary general surgery: Present: warm and dry - Neurologic Present: CN 2-12 grossly intact - Musculoskeletal Present: normal gait, normal posture - Psychiatric Psychiatric general surgery: Present: A&Ox3 Exam Initial Vital Signs Temp Pulse Resp BP Pulse Ox 98.0 F 80 18 173/77 94 L 09/28/16 19:39 09/28/16 19:39 09/28/16 19:39 09/28/16 19:39 09/28/16 19:39 Results - Labs 10/01/16 05:10 10/01/16 05:10 Abnormal lab results WBC 11.8 K/mcL (4.3-11.1) H 10/01/16 05:10 Hgb 11.0 g/dL (11.5-15.4) L 10/01/16 05:10 Hct 33.5 % (35.3-44.9) L 10/01/16 05:10 MCH 27.9 pg (28.0-33.3) L 10/01/16 05:10 Neutrophils # 11.0 K/mcL (1.6-8.9) H 09/28/16 21:34 PT 13.5 Seconds (9.4-12.1) H 09/29/16 04:34 APTT 66.8 Seconds (26.0-36.0) H D 09/29/16 04:34 Sodium 134 mEq/L (136-145) L 10/01/16 05:10 Est GFR (Non-Af Amer) 57 (> 60) L 10/01/16 05:10 Glucose 170 mg/dL (70-99) H 10/01/16 05:10 POC Glucose 215 (58-89) H 09/30/16 20:26 Troponin I 0.16 ng/mL (0-0.03) H* 09/30/16 11:13 B-Natriuretic Peptide 684 pg/mL (0-100) H 09/29/16 04:34 Albumin 2.5 g/dL (3.5-5.0) L 10/01/16 05:10 Globulin 4.3 g/dL (2.4-3.5) H 10/01/16 05:10 Albumin/Globulin Ratio 0.6 (1.1-2.2) L 10/01/16 05:10 Triglycerides 196 mg/dL (< 150) H 09/29/16 04:34 VLDL Cholesterol, Calc 39 mg/dL (< 31) H 09/29/16 04:34 HDL Cholesterol 36 mg/dL (40-59) L 09/29/16 04:34 Lipase 422 Units/L (8-78) H 10/01/16 05:10 TSH 0.123 mcIU/mL (0.350-4.840) L 09/29/16 04:34 Urine Clarity Cloudy (Clear) A 09/29/16 05:01 Urine Protein 100 mg/dL (Neg-Trace) H 09/29/16 05:01 Urine Glucose (UA) >=1000 mg/dL (Normal) H 09/29/16 05:01 Urine Ketones Trace mg/dL (Negative) H 09/29/16 05:01 Urine Blood Large (Negative) H 09/29/16 05:01 Urine Microscopic RBC 5-15 per hpf (0-3) H 09/29/16 05:01 Urine Microscopic WBC 3-5 per hpf (0-3) H 09/29/16 05:01 Ur Squamous Epith Cells Many per lpf (None-Few) H 09/29/16 05:01 Urine Bacteria Many per hpf (None-Few) H 09/29/16 05:01 Diabetes panel 09/30/16 10/01/16 Range/Units 11:13 05:10 Sodium 137 134 L (136-145) mEq/L Potassium 3.9 3.8 (3.5-4.5) mEq/L Chloride 105 103 (98-109) mEq/L Carbon Dioxide 22 21 (19-29) mEq/L BUN 25 H D 18 (7-20) mg/dL Creatinine 1.19 H 0.99 (0.57-1.11) mg/dL Glucose 191 H 170 H (70-99) mg/dL Calcium 9.8 9.5 (8.6-10.8) mg/dL AST 15 (5-34) Units/L ALT 11 (0-55) Units/L Alkaline Phosphatase 51 (38-126) Units/L Albumin 2.5 L (3.5-5.0) g/dL Calcium panel 09/30/16 10/01/16 Range/Units 11:13 05:10 Calcium 9.8 9.5 (8.6-10.8) mg/dL Albumin 2.5 L (3.5-5.0) g/dL Pituitary panel 09/30/16 10/01/16 Range/Units 11:13 05:10 Sodium 137 134 L (136-145) mEq/L Potassium 3.9 3.8 (3.5-4.5) mEq/L Chloride 105 103 (98-109) mEq/L Carbon Dioxide 22 21 (19-29) mEq/L BUN 25 H D 18 (7-20) mg/dL Creatinine 1.19 H 0.99 (0.57-1.11) mg/dL Glucose 191 H 170 H (70-99) mg/dL Calcium 9.8 9.5 (8.6-10.8) mg/dL Adrenal panel 09/30/16 10/01/16 Range/Units 11:13 05:10 Sodium 137 134 L (136-145) mEq/L Potassium 3.9 3.8 (3.5-4.5) mEq/L Chloride 105 103 (98-109) mEq/L Carbon Dioxide 22 21 (19-29) mEq/L BUN 25 H D 18 (7-20) mg/dL Creatinine 1.19 H 0.99 (0.57-1.11) mg/dL Glucose 191 H 170 H (70-99) mg/dL Calcium 9.8 9.5 (8.6-10.8) mg/dL Total Bilirubin 0.6 (0.2-1.2) mg/dL AST 15 (5-34) Units/L ALT 11 (0-55) Units/L Alkaline Phosphatase 51 (38-126) Units/L Albumin 2.5 L (3.5-5.0) g/dL All other labs normal. - Imaging US - abdomen: report reviewed
[2016-09-30] MEDS: Pantoprazole 40 MG VIAL IVP SCH (17:59)
[2016-09-30] MEDS: Melatonin 3 MG TABLET PO SCH (21:01)
[2016-09-30] MEDS: ALPRAZolam 0.25 MG TABLET PO SCH (21:01)
[2016-09-30] MEDS: Fenofibrate 54 MG TABLET PO SCH (21:01)
[2016-10-01] MEDS: Piperacillin/Tazobactam 3.375 GM in D5% in Water (Mini-Bag+) 100 ML IVPB SCH ×3 (02:58→17:47)
[2016-10-01] MEDS: Ipratropium/Albuterol Neb 3 ML IH SCH ×4 (04:24→22:42)
[2016-10-01 05:51] LABS: Hematocrit 33.5 % (35.3-44.9); Mean Corpuscular HGB Conc 32.8 g/dL (31.6-35.5); Mean Corpuscular Hemoglobin 27.9 pg (28.0-33.3); Mean Platelet Volume 10.6 fL (9.4-12.4); Platelet Count 197 K/mcL (140-400); Red Blood Count 3.94 M/mcL (3.82-4.97); Red Cell Distribution Width 13.9 % (11.5-14.5)
[2016-10-01 06:04] LABS: Alanine Aminotransferase 11 Units/L (0-55); Albumin 2.5 g/dL (3.5-5.0); Albumin/Globulin Ratio 0.6 (1.1-2.2); Alkaline Phosphatase 51 Units/L (38-126); Aspartate Amino Transferase 15 Units/L (5-34); BUN/Creatinine Ratio 18 (6-26); Bilirubin,Total 0.6 mg/dL (0.2-1.2); Blood Urea Nitrogen 18 mg/dL (7-20); Calcium 9.5 mg/dL (8.6-10.8); Carbon Dioxide 21 mEq/L (19-29); Chloride 103 mEq/L (98-109); Globulin 4.3 g/dL (2.4-3.5); Glucose 170 mg/dL (70-99); Osmolality,Calculated 284 (280-300); Potassium 3.8 mEq/L (3.5-4.5); Sodium 134 mEq/L (136-145); Total Protein 6.8 g/dL (6.0-8.3); eGFR For African Americans > 60 (> 60); eGFR For Non-African Americans 57 (> 60)
[2016-10-01] MEDS: Pantoprazole 40 MG VIAL IVP SCH ×2 (06:21→17:46)
[2016-10-01] MEDS: 0.9 % Sodium Chloride 1,000 ML IVC SCH ×2 (06:21→15:23)
[2016-10-01] MEDS: *HR* OxyCODONE Immed Rel 5 MG TABLET PO PRN ×2 (06:31→20:33)
[2016-10-01 07:55] LABS: Amylase 43 Units/L (25-125); Lipase 422 Units/L (8-78)
[2016-10-01] MEDS: Levofloxacin 750 MG/150 ML 750 MG/150 ML BAG IVPB SCH (08:22)
[2016-10-01] MEDS: *HR* Heparin 5,000 UNIT/ML VIAL SQ SCH ×2 (08:22→18:03)
[2016-10-01] MEDS: Nicotine 21 MG PATCH.TD24 TD SCH (10:13)
[2016-10-01] MEDS: Gabapentin 300 MG CAPSULE PO SCH ×3 (10:14→20:28)
[2016-10-01] MEDS: predniSONE 20 MG TABLET PO SCH (10:14)
[2016-10-01] MEDS: Famotidine 20 MG TABLET PO SCH (10:14)
[2016-10-01] MEDS: Aspirin Enteric Coated 81 MG Tablet PO SCH (10:15)
[2016-10-01] MEDS: amLODIPine 5 MG TABLET PO SCH (10:15)
[2016-10-01] MEDS: Sucralfate 1 GM TABLET PO SCH ×4 (10:15→20:33)
[2016-10-01] MEDS: Insulin LISPRO 300 UNITS/3 ML VIAL SQ SCH ×4 (10:30→20:29)
--- NOTE | 2016-10-01 10:51 | Internal Med Progress Note ---
<Ivan Bonilla - Last Filed: 10/01/16 11:01> Date of Encounter: 10/01/16 Time of Encounter: 10:49 - Assessment and plan (1) Decompensated COPD with exacerbation (chronic obstructive pulmonary disease) Current Visit: Yes Status: Acute Assessment and plan: Mrs. Stein was admitted with COPD exacerbation on 2.5 L of oxygen to maintain oxygen saturations greater than 90%. She feels well today and better compared to admission. Plan: -Continue DuoNeb 4 times a day scheduled - Continue PRN albuterol nebulizer. - Continue Singulair 10 mg by mouth at bedtime - Continue prednisone 40 mg by mouth daily - Continue Levaquin every 48 hours (2) Elevated troponin I measurement Current Visit: Yes Status: Acute Assessment and plan: Suspected demand ischemia. Patient was seen by cardiology, who have now signed off. (3) CAD (coronary artery disease) Current Visit: Yes Status: Chronic Assessment and plan: Patient has known coronary artery disease. History of left heart catheter April 2016 with single-vessel EVERARDO in the RCA. -Continue simvastatin 40 mg by mouth at bedtime - Continue beta jessica, Plavix, aspirin Qualifiers: Coronary Disease-Associated Artery/Lesion type: [place] artery [place] vs. transplanted heart: [place] heart Associated angina: angina presence unspecified Qualified Code(s): I25.10 - Atherosclerotic heart disease of [place] coronary artery without angina pectoris (4) Chronic kidney disease, stage 3 Current Visit: Yes Status: Chronic Assessment and plan: Patient is a history of CKD stage III with creatinine 0.99 and GFR 57 Plan: - Continue normal saline at 50 ML's per hour. Monitor renal function with a.m. labs. - Continue renally dosing medications and avoiding nephrotoxic drugs. (5) Diabetes mellitus type 2 in obese Current Visit: Yes Status: Chronic Assessment and plan: Patient is a known type II diabetic who is on glipizide and Tradjenta at home , hemoglobin A1c on 09/29/2016 was 5.6. Glucoses have been elevated likely secondary to steroids. Plan: -Continue high dose insulin sliding scale. (6) Hypothyroidism Current Visit: Yes Status: Acute Assessment and plan: Known history of hypothyroidism with a TSH of 0.123. Plan: - Continue home dose of levothyroxine at 125mcg po daily Qualifiers: Qualified Code(s): E03.9 - Hypothyroidism, unspecified (7) HTN (hypertension) Current Visit: Yes Status: Acute Assessment and plan: Patient has no history of hypertension with current elevated blood pressures. Plan: - Continue Norvasc 10 mg by mouth daily - Continue Toprol XL 25 mg by mouth scheduled - Continue to monitor blood pressures. Qualifiers: Qualified Code(s): I10 - Essential (primary) hypertension (8) Epigastric pain Current Visit: Yes Status: Acute Assessment and plan: Patient plays epigastric pain as started last evening is described as sharp and radiating to her back. Right upper quadrant ultrasound did not demonstrate any cholelithiasis or gallbladder wall thickening. Lipase collected yesterday is 422, CT of the abdomen demonstrates fatty stranding adjacent to the pancreatic head and duodenal sweep with concerns for pancreatitis but was also mentioned seen in peptic ulcer disease She has been on steroids and anticoagulation with a history of GERD there is concern for possible gastritis versus gastric or duodenal ulceration. Patient also complains of trouble with swallowing. She has not had solid food since her admission. Plan: -EGD scheduled for today - Continue NPO until post procedure - Monitor electrolytes and renal function. (9) Pancreatitis Current Visit: Yes Status: Acute Assessment and plan: Patient epigastric symptoms improving. Lipase collected yesterday is 422, CT of the abdomen demonstrates fatty stranding adjacent to the pancreatic head and duodenal sweep with concerns for pancreatitis but was also mentioned seen in peptic ulcer disease. RUQ did not demonstrate any cholilethiasis. Medications reviewed. Renal function is stable. Electrolytes are stable, Vitals stable. Plan: - Continue rehydration therapy - Continue NPO Qualifiers: Qualified Code(s): K85.90 - Acute pancreatitis without necrosis or infection , unspecified - Subjective Interval history: Mrs. Everett has been seen and evaluated patient bedside this morning. She is alert awake interactive in no acute distress. Her epigastric pain is much improved but not resolved this morning. She describes it as a dull ache to in her abdomen that is exacerbated with movement. She is more upset she has not had anything to eat or drink last evening prior to her planned EGD today. She denies an appetite. She denies any other pain today. She is willing to try oral swabs for moisture of her oral cavity. - Constitutional Vitals: Temp Pulse Resp BP Pulse Ox 98.1 F 72 24 170/86 90 L 10/01/16 08:14 10/01/16 08:14 10/01/16 08:14 10/01/16 08:14 10/01/16 08:14 General appearance: Present: cooperative, mild distress, A&O X 3, morbidly obese , answers questions appropriately - Head Head exam: Present: atraumatic, normocephalic - Eye Eye exam: Present: PERRL, conjuntiva pink, sclera anicteric Pupils: Present: PERRL - Neck Neck exam general surgery: Present: supple, trachea midline. Absent: lymphadenopathy - Respiratory Respiratory exam: Present: wheezes. Absent: accessory muscle use, rales, rhonchi Additional comments: diffuse expiratory wheeze appreciated in all lung [place]. - Cardiovascular Cardiovascular exam: Present: RRR, +S1, +S2. Absent: diastolic murmur, gallop, rubs, systolic murmur - GI/Abdominal Additional comments: Obese abdomen, slight tenderness to palpation of the epigastric region, no guarding. + bowel sounds. - Extremities Exam Extremities exam: Present: pedal edema, warm, radial pulses palpable and symetrical. Absent: calf tenderness, cyanotic - Back Exam Back exam: Present: normal inspection - Neurological Exam Neurological exam: Present: alert, oriented X3, no focal deficits. Absent: pronater drift, facial droop, speech deficit - Psychiatric Psychiatric exam: Present: normal affect, normal mood Internal Medicine: Result - Labs CBC & Chem 7: 10/01/16 05:10 10/01/16 05:10 Labs: Short CBC 10/01/16 Range/Units 05:10 WBC 11.8 H (4.3-11.1) K/mcL Hgb 11.0 L (11.5-15.4) g/dL Hct 33.5 L (35.3-44.9) % Plt Count 197 (140-400) K/mcL BMP 09/30/16 10/01/16 11:13 05:10 Sodium 137 134 L Potassium 3.9 3.8 Chloride 105 103 Carbon Dioxide 22 21 BUN 25 H D 18 Creatinine 1.19 H 0.99 Glucose 191 H 170 H Calcium 9.8 9.5 Cardiac Enzymes 09/30/16 Range/Units 11:13 Troponin I 0.16 H* (0-0.03) ng/mL Liver Function 10/01/16 Range/Units 05:10 Total Bilirubin 0.6 (0.2-1.2) mg/dL AST 15 (5-34) Units/L ALT 11 (0-55) Units/L Alkaline Phosphatase 51 (38-126) Units/L Albumin 2.5 L (3.5-5.0) g/dL - ABG Interpretation ABG results: PT/INR, D-dimer PT 13.5 Seconds (9.4-12.1) H 09/29/16 04:34 - Impressions Impressions Abdomen/Pelvis CT 09/30/16 19:40 IMPRESSION: 1. Patchy ground-glass opacities in the bilateral lungs concerning for pneumonia or edema. 2. Fatty stranding adjacent to the pancreatic head and duodenal sweep raising the possibility of pancreatitis. This could also be seen with peptic ulcer disease. 3. Fluid is present along the fem-fem bypass graft. No gas is seen. This could represent postsurgical change, infection, or leak. No prior imaging of the fem-fem bypass graft is available for comparison. D/ / Kye Kim MD / Kye Kim MD Interpreting Provider: Kye Kim MD Consult Discharge Plan - Plan Referrals: Amy Ocampo, MEDICAL TYPIST [Primary Care Provider] - <Henri Nick P - Last Filed: 10/01/16 18:19> Date of Encounter: 10/01/16 - Assessment and plan (1) Decompensated COPD with exacerbation (chronic obstructive pulmonary disease) Current Visit: Yes Status: Acute (2) Elevated troponin I measurement Current Visit: Yes Status: Acute (3) CAD (coronary artery disease) Current Visit: Yes Status: Chronic Qualifiers: Coronary Disease-Associated Artery/Lesion type: [place] artery [place] vs. transplanted heart: [place] heart Associated angina: angina presence unspecified Qualified Code(s): I25.10 - Atherosclerotic heart disease of [place] coronary artery without angina pectoris (4) Diabetes mellitus type 2 in obese Current Visit: Yes Status: Chronic (5) Chronic kidney disease, stage 3 Current Visit: Yes Status: Chronic - Constitutional Vitals: Temp Pulse Resp BP Pulse Ox 98.1 F 61 18 155/71 98 10/01/16 16:18 10/01/16 16:18 10/01/16 16:29 10/01/16 16:18 10/01/16 16:29 Internal Medicine: Result - Labs CBC & Chem 7: 10/01/16 05:10 10/01/16 05:10 Labs: Short CBC 10/01/16 Range/Units 05:10 WBC 11.8 H (4.3-11.1) K/mcL Hgb 11.0 L (11.5-15.4) g/dL Hct 33.5 L (35.3-44.9) % Plt Count 197 (140-400) K/mcL BMP 10/01/16 05:10 Sodium 134 L Potassium 3.8 Chloride 103 Carbon Dioxide 21 BUN 18 Creatinine 0.99 Glucose 170 H Calcium 9.5 Liver Function 10/01/16 Range/Units 05:10 Total Bilirubin 0.6 (0.2-1.2) mg/dL AST 15 (5-34) Units/L ALT 11 (0-55) Units/L Alkaline Phosphatase 51 (38-126) Units/L Albumin 2.5 L (3.5-5.0) g/dL - ABG Interpretation ABG results: PT/INR, D-dimer PT 13.5 Seconds (9.4-12.1) H 09/29/16 04:34 - Impressions Impressions Abdomen/Pelvis CT 09/30/16 19:40 IMPRESSION: 1. Patchy ground-glass opacities in the bilateral lungs concerning for pneumonia or edema. 2. Fatty stranding adjacent to the pancreatic head and duodenal sweep raising the possibility of pancreatitis. This could also be seen with peptic ulcer disease. 3. Fluid is present along the fem-fem bypass graft. No gas is seen. This could represent postsurgical change, infection, or leak. No prior imaging of the fem-fem bypass graft is available for comparison. D/ / Kye Kim MD / Kye Kim MD Interpreting Provider: Kye Kim MD - Attending Attestation I examined this patient and my medical decision-making was reviewed with the HEALTH CLUB MANAGER/PA/Advanced Practice Nurse/Resident Physician. I agree with the documented findings, disposition and treatment plan as described except to the extent set forth below.
--- NOTE | 2016-10-01 12:04 | General Surgery Progress Note ---
Date of Encounter: 10/01/16 Time of Encounter: 12:02 - Assessment and Plan (1) Epigastric pain Current Visit: Yes Status: Acute improved, prn pain meds serial abdominal exams (2) Pancreatitis Current Visit: Yes Status: Acute CT scan shows inflammation of the pancreatic head and surrounding fat ok clears today serial abdominal exams does not need EGD at this time prn pain control recheck amylase tomorrow Qualifiers: Chronicity: acute Pancreatitis type: unspecified pancreatitis type Acute pancreatitis complication: no infection or necrosis Qualified Code(s): K85.90 - Acute pancreatitis without necrosis or infection, unspecified Subjective Narrative: abdominal pain improved, no nausea or emesis tolerated clears yday Objective Vital Signs - Last 8 Hours Temp Pulse Resp BP Pulse Ox 10/01/16 11:28 99.2 F 68 19 147/63 99 10/01/16 08:14 98.1 F 72 24 170/86 90 L 10/01/16 04:26 16 91 L Intake and Output 09/30/16 10/01/16 10/01/16 23:59 07:59 15:59 Intake Total 880 / 880 1100 / 1100 145 / 145 Output Total 1050 / 1050 1050 / 1050 Balance -170 / -170 1100 / 1100 -905 / -905 Intake: IV Fluids 100 / 100 1100 / 1100 145 / 145 0.9 % Sodium Chloride 1, 1000 / 1000 000 ML @ 50 mls/hr IVC . Q20H NELLIE Rx#:[id number] Levaquin 750mg/150 mL 750 145 / 145 mg In 150 ml @ 100 mls/ hr IVPB Q48H NELLIE Rx#: [id number] Zosyn 3.375 GM In 100 / 100 100 / 100 Dextrose 5% (Minibag+) 100 ML 100 ML @ 25 mls/hr IVPB Q8H NELLIE Rx#: [id number] Oral 780 / 780 Output: Urine 1050 / 1050 1050 / 1050 Other: Meal Dinner Percent of Meal Consumed 80% # Voids 1 Weight 108.1 kg Blood Glucose* 215 154 Patient Weight 10/01/16 23:59 Weight 108.1 kg - General physical appearance well developed, well nourished, no distress, obese - Eyes PERRL, normal ocular movement - ENT normal mucosa, atraumatic, normocephalic - Neck Neck exam: trachea midline - Respiratory normal expansion, clear to auscultation - Cardiovascular Cardiovascular exam: Present: RRR - Abdomen Abdomen: Present: bowel sounds present, soft, tender (but decreased compared to yesterday). Absent: distended, guarding, rebound - Integumentary no rash, no growths - Neurologic CN 2-12 grossly intact - Musculoskeletal normal posture - Psychiatric oriented to time, speech is normal, memory intact - Labs 10/01/16 05:10 10/01/16 05:10 Diabetes panel 10/01/16 Range/Units 05:10 Sodium 134 L (136-145) mEq/L Potassium 3.8 (3.5-4.5) mEq/L Chloride 103 (98-109) mEq/L Carbon Dioxide 21 (19-29) mEq/L BUN 18 (7-20) mg/dL Creatinine 0.99 (0.57-1.11) mg/dL Glucose 170 H (70-99) mg/dL Calcium 9.5 (8.6-10.8) mg/dL AST 15 (5-34) Units/L ALT 11 (0-55) Units/L Alkaline Phosphatase 51 (38-126) Units/L Albumin 2.5 L (3.5-5.0) g/dL Calcium panel 10/01/16 Range/Units 05:10 Calcium 9.5 (8.6-10.8) mg/dL Albumin 2.5 L (3.5-5.0) g/dL Pituitary panel 10/01/16 Range/Units 05:10 Sodium 134 L (136-145) mEq/L Potassium 3.8 (3.5-4.5) mEq/L Chloride 103 (98-109) mEq/L Carbon Dioxide 21 (19-29) mEq/L BUN 18 (7-20) mg/dL Creatinine 0.99 (0.57-1.11) mg/dL Glucose 170 H (70-99) mg/dL Calcium 9.5 (8.6-10.8) mg/dL Adrenal panel 10/01/16 Range/Units 05:10 Sodium 134 L (136-145) mEq/L Potassium 3.8 (3.5-4.5) mEq/L Chloride 103 (98-109) mEq/L Carbon Dioxide 21 (19-29) mEq/L BUN 18 (7-20) mg/dL Creatinine 0.99 (0.57-1.11) mg/dL Glucose 170 H (70-99) mg/dL Calcium 9.5 (8.6-10.8) mg/dL Total Bilirubin 0.6 (0.2-1.2) mg/dL AST 15 (5-34) Units/L ALT 11 (0-55) Units/L Alkaline Phosphatase 51 (38-126) Units/L Albumin 2.5 L (3.5-5.0) g/dL - Imaging CT scan - abdomen: report reviewed, image reviewed CT scan - pelvis: report reviewed, image reviewed Consult Discharge Plan - Plan Referrals: Amy Ocampo, COUTURIERE [Primary Care Provider] -
[2016-10-01] MEDS: Nystatin POWDER 30 GM BOTTLE TP SCH ×3 (15:24→20:29)
--- NOTE | 2016-10-01 15:26 | Electrocardiograph Report ---
[address] [place], [place] [address] Test Date: 2016-09-30 Pat Name: Maday Stein Department: 111 Room: [facility] Gender: F Medical Transcriber: : 1955 Requested By: Henri Nick Order Number: [id number] Reading MD: Aster Clement Measurements Intervals [place] Rate: 52 P: 42 DC: 138 QRS: 3 QRSD: 85 T: -17 QT: 486 QTc: 465 Interpretive Statements SINUS BRADYCARDIA Electronically Signed On 10-01-2016 15:24:50 EST by Aster Clement
[2016-10-01] MEDS: FLUoxetine 20 MG CAPSULE PO SCH (17:46)
[2016-10-01] MEDS: Metoprolol XL (24 HR) Succ 25 MG TAB.ER.24H PO SCH (17:46)
[2016-10-01] MEDS: ALPRAZolam 0.25 MG TABLET PO SCH (20:28)
[2016-10-01] MEDS: Fenofibrate 54 MG TABLET PO SCH (20:28)
[2016-10-01] MEDS: Melatonin 3 MG TABLET PO SCH (20:37)
[2016-10-02] MEDS: Piperacillin/Tazobactam 3.375 GM in D5% in Water (Mini-Bag+) 100 ML IVPB SCH ×3 (02:57→23:22)
[2016-10-02] MEDS: 0.9 % Sodium Chloride 1,000 ML IVC SCH (02:58)
[2016-10-02] MEDS: Ipratropium/Albuterol Neb 3 ML IH SCH ×4 (04:29→22:03)
[2016-10-02 05:00] LABS: Basophils % 0.2 %; Hematocrit 34.2 % (35.3-44.9); Hemoglobin 11.1 g/dL (11.5-15.4); Lymphocytes # 1.2 K/mcL (0.6-4.6); Lymphocytes % 8.7 %; Mean Corpuscular HGB Conc 32.5 g/dL (31.6-35.5); Mean Corpuscular Volume 86.1 fL (83.0-100.0); Mean Platelet Volume 10.6 fL (9.4-12.4); Monocytes # 0.8 K/mcL (0.0-1.3); Monocytes % 6.1 %; Neutrophils # 11.6 K/mcL (1.6-8.9); Platelet Count 209 K/mcL (140-400); Red Blood Count 3.97 M/mcL (3.82-4.97)
[2016-10-02 05:01] LABS: Alanine Aminotransferase 10 Units/L (0-55); Albumin 2.1 g/dL (3.5-5.0); Albumin/Globulin Ratio 0.5 (1.1-2.2); Alkaline Phosphatase 53 Units/L (38-126); Aspartate Amino Transferase 16 Units/L (5-34); BUN/Creatinine Ratio 16 (6-26); Bilirubin,Total 0.9 mg/dL (0.2-1.2); Blood Urea Nitrogen 14 mg/dL (7-20); Calcium 9.7 mg/dL (8.6-10.8); Carbon Dioxide 20 mEq/L (19-29); Chloride 108 mEq/L (98-109); Globulin 4.4 g/dL (2.4-3.5); Glucose 115 mg/dL (70-99); Lipase 129 Units/L (8-78); Osmolality,Calculated 289 (280-300); Potassium 3.7 mEq/L (3.5-4.5); Sodium 139 mEq/L (136-145); Total Protein 6.5 g/dL (6.0-8.3); eGFR For African Americans > 60 (> 60); eGFR For Non-African Americans > 60 (> 60)
[2016-10-02] MEDS: *HR* Heparin 5,000 UNIT/ML VIAL SQ SCH ×2 (06:11→17:40)
[2016-10-02] MEDS: Pantoprazole 40 MG VIAL IVP SCH ×2 (06:12→17:12)
[2016-10-02] MEDS: Sucralfate 1 GM TABLET PO SCH ×2 (06:14→12:38)
[2016-10-02] MEDS: Insulin LISPRO 300 UNITS/3 ML VIAL SQ SCH ×4 (08:13→21:12)
[2016-10-02] MEDS: Gabapentin 300 MG CAPSULE PO SCH ×3 (08:14→21:13)
[2016-10-02] MEDS: Aspirin Enteric Coated 81 MG Tablet PO SCH (08:14)
[2016-10-02] MEDS: Famotidine 20 MG TABLET PO SCH (08:14)
[2016-10-02] MEDS: amLODIPine 5 MG TABLET PO SCH (08:14)
[2016-10-02] MEDS: Nicotine 21 MG PATCH.TD24 TD SCH (08:15)
[2016-10-02] MEDS: Nystatin POWDER 30 GM BOTTLE TP SCH ×3 (08:15→21:13)
[2016-10-02] MEDS: predniSONE 20 MG TABLET PO SCH (08:15)
--- NOTE | 2016-10-02 10:07 | Internal Med Progress Note ---
<Ivan Bonilla - Last Filed: 10/02/16 13:19> Date of Encounter: 10/02/16 Time of Encounter: 08:15 - Assessment and plan (1) Decompensated COPD with exacerbation (chronic obstructive pulmonary disease) Current Visit: Yes Status: Acute Assessment and plan: Mrs. Stein was admitted with COPD exacerbation requiring increase in oxygen demand last evening to 4 liters NC. She feels as if she has not improved. Lungs had slight expiratory wheeze diffusely. Plan: -Continue DuoNeb 4 times a day scheduled - Continue PRN albuterol nebulizer. - Continue Singulair 10 mg by mouth at bedtime - Continue prednisone 40 mg by mouth daily - Continue Levaquin every 48 hours (2) Elevated troponin I measurement Current Visit: Yes Status: Acute Assessment and plan: Suspected demand ischemia. Patient was seen by cardiology, who have now signed off. (3) CAD (coronary artery disease) Current Visit: Yes Status: Chronic Assessment and plan: Patient has known coronary artery disease. History of left heart catheter April 2016 with single-vessel EVERARDO in the RCA. -Continue simvastatin 40 mg by mouth at bedtime - Continue beta jessica, Plavix, aspirin Qualifiers: Coronary Disease-Associated Artery/Lesion type: [place] artery [place] vs. transplanted heart: [place] heart Associated angina: angina presence unspecified Qualified Code(s): I25.10 - Atherosclerotic heart disease of [place] coronary artery without angina pectoris (4) Chronic kidney disease, stage 3 Current Visit: Yes Status: Chronic Assessment and plan: Patient is a history of CKD stage III with KEISHA resolved. Plan: - Continue normal saline at 50 ML's per hour. - Monitor renal function with a.m. labs. (5) Diabetes mellitus type 2 in obese Current Visit: Yes Status: Chronic Assessment and plan: Patient is a known type II diabetic who is on glipizide and Tradjenta at home , hemoglobin A1c on 09/29/2016 was 5.6. Glucoses have been elevated likely secondary to steroids. Plan: -Continue high dose insulin sliding scale. (6) Hypothyroidism Current Visit: Yes Status: Acute Assessment and plan: Known history of hypothyroidism with a TSH of 0.123. Plan: - Continue home dose of levothyroxine at 125mcg po daily Qualifiers: Qualified Code(s): E03.9 - Hypothyroidism, unspecified (7) HTN (hypertension) Current Visit: Yes Status: Acute Assessment and plan: Patient has no history of hypertension with current elevated blood pressures. Plan: - Continue Norvasc 10 mg by mouth daily - Continue Toprol XL 25 mg by mouth scheduled - Continue to monitor blood pressures. (8) Epigastric pain Current Visit: Yes Status: Acute Assessment and plan: Patient plays epigastric pain as started last evening is described as sharp and radiating to her back. Right upper quadrant ultrasound did not demonstrate any cholelithiasis or gallbladder wall thickening. Lipase collected yesterday is 422, CT of the abdomen demonstrates fatty stranding adjacent to the pancreatic head and duodenal sweep with concerns for pancreatitis but was also mentioned seen in peptic ulcer disease She has been on steroids and anticoagulation with a history of GERD there is concern for possible gastritis versus gastric or duodenal ulceration. Patient also complains of trouble with swallowing. She has not had solid food since her admission. Plan: -EGD scheduled for today - Continue NPO until post procedure - Monitor electrolytes and renal function. (9) Pancreatitis Current Visit: Yes Status: Acute Assessment and plan: Patient epigastric symptoms improving. Lipase collected with a high of 422, CT of the abdomen demonstrates fatty stranding adjacent to the pancreatic head and duodenal sweep with concerns for pancreatitis but was also mentioned seen in peptic ulcer disease. RUQ did not demonstrate any cholilethiasis. Medications reviewed. Renal function is stable. Electrolytes are stable, Vitals stable. 10/02/2016: Patient tolerating clear liquid diet. No worsening of abdominal pain. Lipase trending down. Plan: - Continue rehydration therapy - Continue current diet with plans to advance diet tomorrow. Qualifiers: Chronicity: acute Pancreatitis type: unspecified pancreatitis type Acute pancreatitis complication: no infection or necrosis Qualified Code(s): K85.90 - Acute pancreatitis without necrosis or infection, unspecified - Subjective Interval history: Mrs. Stein has been seen and evaluated patient bedside this morning. She is alert awake interactive in no acute distress. She says her shortness of breath has worsened in since early this morning. She feels more short of breath than when she was admitted. Her abdominal pain is about the same as yesterday and she is tolerating clear liquids PO. She does not like the diet and says it does not sit well in her stomach but she has not had any vomiting. She had a bowel movement yesterday without any noticable blood or black tarry stools. She denies blood in sputum or excess sputum production. - Constitutional Vitals: Temp Pulse Resp BP Pulse Ox 98.3 F 66 14 106/96 92 L 10/02/16 08:08 10/02/16 08:08 10/02/16 08:08 10/02/16 08:08 10/02/16 08:08 General appearance: Present: cooperative, mild distress, A&O X 3, morbidly obese , answers questions appropriately - Head Head exam: Present: atraumatic, normocephalic - Eye Eye exam: Present: PERRL - ENT ENT exam: Present: mucous membranes moist - Neck Neck exam general surgery: Present: supple, trachea midline. Absent: lymphadenopathy - Respiratory Respiratory exam: Present: wheezes. Absent: accessory muscle use, rales, rhonchi - Cardiovascular Cardiovascular exam: Present: RRR, +S1, +S2. Absent: diastolic murmur, gallop, rubs, systolic murmur - GI/Abdominal GI/Abdominal exam: Present: normal bowel sounds, soft, tenderness (mild tenderness to epigastric palpation. ), no peritoneal signs. Absent: distended - Extremities Exam Extremities exam: Present: warm, radial pulses palpable and symetrical. Absent : calf tenderness, cyanotic, pedal edema - Neurological Exam Neurological exam: Present: alert, oriented X3, no focal deficits. Absent: pronater drift, facial droop, speech deficit - Psychiatric Psychiatric exam: Present: normal affect, normal mood - Skin Skin exam: Present: dry, intact Internal Medicine: Result - Labs CBC & Chem 7: 10/02/16 03:59 10/02/16 03:59 Labs: Short CBC 10/02/16 Range/Units 03:59 WBC 13.8 H (4.3-11.1) K/mcL Hgb 11.1 L (11.5-15.4) g/dL Hct 34.2 L (35.3-44.9) % Plt Count 209 (140-400) K/mcL Neutrophils # 11.6 H (1.6-8.9) K/mcL BMP 10/02/16 03:59 Sodium 139 Potassium 3.7 Chloride 108 Carbon Dioxide 20 BUN 14 Creatinine 0.86 Glucose 115 H Calcium 9.7 Liver Function 10/02/16 Range/Units 03:59 Total Bilirubin 0.9 (0.2-1.2) mg/dL AST 16 (5-34) Units/L ALT 10 (0-55) Units/L Alkaline Phosphatase 53 (38-126) Units/L Albumin 2.1 L (3.5-5.0) g/dL - ABG Interpretation ABG results: PT/INR, D-dimer PT 13.5 Seconds (9.4-12.1) H 09/29/16 04:34 - Impressions Impressions Gallbladder Ultrasound 09/30/16 09:00 IMPRESSION: Limited examination. Possible minimal sludge in the gallbladder neck. No gallstones are identified. No acute abnormality in the right upper quadrant. D/ / 09/30/2016 10:11:47 Yomaira Allen MD / erica Interpreting Provider: Yomaira Allen MD Consult Discharge Plan - Plan Referrals: Amy Ocampo, TUBING MILL OPERATOR [Primary Care Provider] - <Henri Nick - Last Filed: 10/02/16 14:28> Date of Encounter: 10/02/16 - Assessment and plan (1) Decompensated COPD with exacerbation (chronic obstructive pulmonary disease) Current Visit: Yes Status: Acute (2) Elevated troponin I measurement Current Visit: Yes Status: Acute (3) CAD (coronary artery disease) Current Visit: Yes Status: Chronic Qualifiers: Coronary Disease-Associated Artery/Lesion type: [place] artery [place] vs. transplanted heart: [place] heart Associated angina: angina presence unspecified Qualified Code(s): I25.10 - Atherosclerotic heart disease of [place] coronary artery without angina pectoris (4) Diabetes mellitus type 2 in obese Current Visit: Yes Status: Chronic (5) Chronic kidney disease, stage 3 Current Visit: Yes Status: Chronic - Constitutional Vitals: Temp Pulse Resp BP Pulse Ox 98.1 F 64 14 153/73 93 L 10/02/16 12:31 10/02/16 12:31 10/02/16 12:31 10/02/16 12:31 10/02/16 12:31 Internal Medicine: Result - Labs CBC & Chem 7: 10/02/16 03:59 10/02/16 03:59 Labs: Short CBC 10/02/16 Range/Units 03:59 WBC 13.8 H (4.3-11.1) K/mcL Hgb 11.1 L (11.5-15.4) g/dL Hct 34.2 L (35.3-44.9) % Plt Count 209 (140-400) K/mcL Neutrophils # 11.6 H (1.6-8.9) K/mcL BMP 10/02/16 03:59 Sodium 139 Potassium 3.7 Chloride 108 Carbon Dioxide 20 BUN 14 Creatinine 0.86 Glucose 115 H Calcium 9.7 Liver Function 10/02/16 Range/Units 03:59 Total Bilirubin 0.9 (0.2-1.2) mg/dL AST 16 (5-34) Units/L ALT 10 (0-55) Units/L Alkaline Phosphatase 53 (38-126) Units/L Albumin 2.1 L (3.5-5.0) g/dL - ABG Interpretation ABG results: PT/INR, D-dimer PT 13.5 Seconds (9.4-12.1) H 09/29/16 04:34 - Impressions Impressions Gallbladder Ultrasound 09/30/16 09:00 IMPRESSION: Limited examination. Possible minimal sludge in the gallbladder neck. No gallstones are identified. No acute abnormality in the right upper quadrant. D/ / 09/30/2016 10:11:47 Yomiara Allen MD / erica Interpreting Provider: Yomaira Allen MD - Attending Attestation I examined this patient and my medical decision-making was reviewed with the OPTICIANRY TEACHER/PA/Advanced Practice Nurse/Resident Physician. I agree with the documented findings, disposition and treatment plan as described except to the extent set forth below. GI opinion
--- NOTE | 2016-10-02 10:11 | General Surgery Progress Note ---
<Matthias Wyatt - Last Filed: 10/02/16 10:07> Date of Encounter: 10/02/16 Time of Encounter: 08:00 - Assessment and Plan (1) Pancreatitis Current Visit: Yes Status: Acute CT scan shows inflammation of the pancreatic head and surrounding fat. Lipase decreased from 422>126. Tolerated clear liquids, okay to advance to full liquids. Serial abdominal exams Does not need EGD at this time Supportive care/ pain control Surgery signing off at this time. Thank you for involving us in this patient's care, please feel free to contact us with any further questions. Qualifiers: Chronicity: acute Pancreatitis type: unspecified pancreatitis type Acute pancreatitis complication: no infection or necrosis Qualified Code(s): K85.90 - Acute pancreatitis without necrosis or infection, unspecified (2) Epigastric pain Current Visit: Yes Status: Acute Overall improved, acutely worsen with particular movement. Subjective Patient reports: no new complaints, still having pain, pain is less (triggered by movement.), tolerating liquids well, flatus, no bowel movement, afebrile Objective Vital Signs - Last 8 Hours Temp Pulse Resp BP Pulse Ox 10/02/16 08:08 98.3 F 66 14 106/96 92 L 10/02/16 08:00 89 L 10/02/16 04:29 19 93 L Intake and Output 10/01/16 10/02/16 10/02/16 23:59 07:59 15:59 Intake Total 460 / 460 1000 / 1000 Output Total 1300 / 1300 Balance 460 / 460 -300 / -300 Intake: IV Fluids 100 / 100 1000 / 1000 0.9 % Sodium Chloride 1, 1000 / 1000 000 ML @ 50 mls/hr IVC . Q20H [facility] Rx#:[id number] Zosyn 3.375 GM In 100 / 100 Dextrose 5% (Minibag+) 100 ML 100 ML @ 25 mls/hr IVPB Q8H [facility] Rx#: [id number] Oral 360 / 360 Output: Urine 1300 / 1300 Other: Weight 108.7 kg Blood Glucose* 232 136 Patient Weight 10/02/16 23:59 Weight 108.7 kg - General physical appearance well developed, well nourished, no distress, obese - Eyes normal ocular movement - ENT normal mucosa, atraumatic, normocephalic - Neck Neck exam: trachea midline - Respiratory normal respiratory effort, clear to auscultation - Cardiovascular Cardiovascular exam: Present: RRR - Abdomen Abdomen: Present: bowel sounds present, soft, tender (epigastric and RUQ tenderness to palpation.) - Integumentary no rash - Neurologic CN 2-12 grossly intact - Psychiatric oriented to time, oriented to person, oriented to place, speech is normal, memory intact - Labs 10/02/16 03:59 10/02/16 03:59 Diabetes panel 10/02/16 Range/Units 03:59 Sodium 139 (136-145) mEq/L Potassium 3.7 (3.5-4.5) mEq/L Chloride 108 (98-109) mEq/L Carbon Dioxide 20 (19-29) mEq/L BUN 14 (7-20) mg/dL Creatinine 0.86 (0.57-1.11) mg/dL Glucose 115 H (70-99) mg/dL Calcium 9.7 (8.6-10.8) mg/dL AST 16 (5-34) Units/L ALT 10 (0-55) Units/L Alkaline Phosphatase 53 (38-126) Units/L Albumin 2.1 L (3.5-5.0) g/dL Calcium panel 10/02/16 Range/Units 03:59 Calcium 9.7 (8.6-10.8) mg/dL Albumin 2.1 L (3.5-5.0) g/dL Pituitary panel 10/02/16 Range/Units 03:59 Sodium 139 (136-145) mEq/L Potassium 3.7 (3.5-4.5) mEq/L Chloride 108 (98-109) mEq/L Carbon Dioxide 20 (19-29) mEq/L BUN 14 (7-20) mg/dL Creatinine 0.86 (0.57-1.11) mg/dL Glucose 115 H (70-99) mg/dL Calcium 9.7 (8.6-10.8) mg/dL Adrenal panel 10/02/16 Range/Units 03:59 Sodium 139 (136-145) mEq/L Potassium 3.7 (3.5-4.5) mEq/L Chloride 108 (98-109) mEq/L Carbon Dioxide 20 (19-29) mEq/L BUN 14 (7-20) mg/dL Creatinine 0.86 (0.57-1.11) mg/dL Glucose 115 H (70-99) mg/dL Calcium 9.7 (8.6-10.8) mg/dL Total Bilirubin 0.9 (0.2-1.2) mg/dL AST 16 (5-34) Units/L ALT 10 (0-55) Units/L Alkaline Phosphatase 53 (38-126) Units/L Albumin 2.1 L (3.5-5.0) g/dL Consult Discharge Plan - Plan Referrals: Amy Ocampo, INTELLIGENCE MANAGER [Primary Care Provider] - <Jenifer Schafer - Last Filed: 10/03/16 16:24> Time of Encounter: 14:40 - Assessment and Plan (1) Epigastric pain Current Visit: Yes Status: Acute (2) Pancreatitis Current Visit: Yes Status: Acute pain resolved, lipase decreasing daily, tolerated fulls, advance to diabetic diet no egd needed at this time surgery signing off, please call if need Qualifiers: Chronicity: acute Pancreatitis type: unspecified pancreatitis type Acute pancreatitis complication: no infection or necrosis Qualified Code(s): K85.90 - Acute pancreatitis without necrosis or infection, unspecified Subjective Narrative: tolerating fulls, no real abdominal pain, no nausea Objective Vital Signs - Last 8 Hours Temp Pulse Resp BP Pulse Ox 10/03/16 14:56 97.9 F 66 16 178/68 93 L 10/03/16 14:51 69 16 175/70 91 L 10/03/16 14:45 97.9 F 61 16 179/73 93 L 10/03/16 12:27 97.9 F 65 16 159/59 92 L 10/03/16 10:58 18 94 L Intake and Output 10/03/16 10/03/16 10/03/16 07:59 15:59 23:59 Intake Total 100 / 100 0 / 0 Balance 100 / 100 0 / 0 Intake: IV Fluids 100 / 100 Zosyn 3.375 GM In 100 / 100 Dextrose 5% (Minibag+) 100 ML 100 ML @ 25 mls/hr IVPB Q8H [facility] Rx#: [id number] Oral 0 / 0 Other: Meal Lunch Percent of Meal Consumed 0% Weight 108.7 kg Blood Glucose* 194 188 Patient Weight 10/03/16 23:59 Weight 108.7 kg - General physical appearance well developed, well nourished, no distress, obese - Eyes PERRL, normal ocular movement - ENT normal mucosa, normocephalic - Respiratory clear to auscultation - Cardiovascular Cardiovascular exam: Present: RRR - Abdomen Abdomen: Present: bowel sounds present, soft. Absent: distended, tender, guarding, rebound - Integumentary no rash - Neurologic CN 2-12 grossly intact - Musculoskeletal normal posture - Psychiatric oriented to time, speech is normal, memory intact - Labs 10/03/16 05:28 10/03/16 05:28 Diabetes panel 10/03/16 Range/Units 05:28 Sodium 138 (136-145) mEq/L Potassium 2.9 L (3.5-4.5) mEq/L Chloride 104 (98-109) mEq/L Carbon Dioxide 22 (19-29) mEq/L BUN 15 (7-20) mg/dL Creatinine 0.99 (0.57-1.11) mg/dL Glucose 155 H (70-99) mg/dL Calcium 9.9 (8.6-10.8) mg/dL AST 15 (5-34) Units/L ALT 8 (0-55) Units/L Alkaline Phosphatase 65 (38-126) Units/L Albumin 2.0 L (3.5-5.0) g/dL Calcium panel 10/03/16 Range/Units 05:28 Calcium 9.9 (8.6-10.8) mg/dL Albumin 2.0 L (3.5-5.0) g/dL Pituitary panel 10/03/16 Range/Units 05:28 Sodium 138 (136-145) mEq/L Potassium 2.9 L (3.5-4.5) mEq/L Chloride 104 (98-109) mEq/L Carbon Dioxide 22 (19-29) mEq/L BUN 15 (7-20) mg/dL Creatinine 0.99 (0.57-1.11) mg/dL Glucose 155 H (70-99) mg/dL Calcium 9.9 (8.6-10.8) mg/dL Adrenal panel 10/03/16 Range/Units 05:28 Sodium 138 (136-145) mEq/L Potassium 2.9 L (3.5-4.5) mEq/L Chloride 104 (98-109) mEq/L Carbon Dioxide 22 (19-29) mEq/L BUN 15 (7-20) mg/dL Creatinine 0.99 (0.57-1.11) mg/dL Glucose 155 H (70-99) mg/dL Calcium 9.9 (8.6-10.8) mg/dL Total Bilirubin 0.8 (0.2-1.2) mg/dL AST 15 (5-34) Units/L ALT 8 (0-55) Units/L Alkaline Phosphatase 65 (38-126) Units/L Albumin 2.0 L (3.5-5.0) g/dL - Attending Attestation I examined this patient and my medical decision-making was reviewed with the AUDIO VIDEO TECHNICIAN/PA/Advanced Practice Nurse/Resident Physician. I agree with the documented findings, disposition and treatment plan as described except to the extent set forth below.
[2016-10-02] MEDS ORDERED: Furosemide 40 MG/4 ML VIAL IVP ONE (15:52)
[2016-10-02] MEDS: FLUoxetine 20 MG CAPSULE PO SCH (17:10)
[2016-10-02] MEDS: Metoprolol XL (24 HR) Succ 25 MG TAB.ER.24H PO SCH (17:10)
[2016-10-02] MEDS: ALPRAZolam 0.25 MG TABLET PO SCH (21:13)
[2016-10-02] MEDS: Melatonin 3 MG TABLET PO SCH (21:13)
[2016-10-02] MEDS: Fenofibrate 54 MG TABLET PO SCH (21:14)
[2016-10-03] MEDS: Ipratropium/Albuterol Neb 3 ML IH SCH ×4 (03:49→22:58)
[2016-10-03] MEDS: *HR* OxyCODONE Immed Rel 5 MG TABLET PO PRN ×2 (03:54→17:02)
[2016-10-03] MEDS: Piperacillin/Tazobactam 3.375 GM in D5% in Water (Mini-Bag+) 100 ML IVPB SCH ×3 (03:57→17:52)
[2016-10-03 05:53] LABS: Basophils # 0.1 K/mcL (0.0-0.2); Basophils % 0.3 %; Eosinophils % 0.1 %; Hematocrit 33.9 % (35.3-44.9); Hemoglobin 11.2 g/dL (11.5-15.4); Immature Granulocytes % 2.3 % (0-4); Lymphocytes # 1.2 K/mcL (0.6-4.6); Lymphocytes % 8.3 %; Mean Corpuscular Hemoglobin 27.6 pg (28.0-33.3); Mean Corpuscular Volume 83.5 fL (83.0-100.0); Mean Platelet Volume 10.3 fL (9.4-12.4); Monocytes % 6.5 %; Platelet Count 264 K/mcL (140-400); Red Blood Count 4.06 M/mcL (3.82-4.97); Red Cell Distribution Width 14.1 % (11.5-14.5); Segmented Neutrophils % 82.5 %
[2016-10-03 06:20] LABS: Alanine Aminotransferase 8 Units/L (0-55); Albumin/Globulin Ratio 0.4 (1.1-2.2); Alkaline Phosphatase 65 Units/L (38-126); Aspartate Amino Transferase 15 Units/L (5-34); BUN/Creatinine Ratio 15 (6-26); Bilirubin,Total 0.8 mg/dL (0.2-1.2); Blood Urea Nitrogen 15 mg/dL (7-20); Calcium 9.9 mg/dL (8.6-10.8); Carbon Dioxide 22 mEq/L (19-29); Chloride 104 mEq/L (98-109); Globulin 4.9 g/dL (2.4-3.5); Glucose 155 mg/dL (70-99); Osmolality,Calculated 290 (280-300); Potassium 2.9 mEq/L (3.5-4.5); Sodium 138 mEq/L (136-145); Total Protein 6.9 g/dL (6.0-8.3); eGFR For African Americans > 60 (> 60); eGFR For Non-African Americans 57 (> 60)
[2016-10-03] MEDS: Pantoprazole 40 MG VIAL IVP SCH ×2 (06:27→17:00)
[2016-10-03] MEDS: *HR* Heparin 5,000 UNIT/ML VIAL SQ SCH ×2 (06:32→18:12)
[2016-10-03] MEDS: Insulin LISPRO 300 UNITS/3 ML VIAL SQ SCH ×4 (08:28→21:29)
[2016-10-03] MEDS: Levofloxacin 750 MG/150 ML 750 MG/150 ML BAG IVPB SCH (08:28)
--- NOTE | 2016-10-03 11:34 | Gastroenterology Consult Note ---
<Olu Marlow - Last Filed: 10/03/16 11:31> Date of Encounter: 10/03/16 Time of Encounter: 10:30 - Assessment and plan (1) Dysphagia Current Visit: Yes Status: Acute Assessment and plan: Pt with dysphagia with solids and liquids. Plan for EGD today with possible dilation. Qualifiers: Dysphagia type: unspecified Qualified Code(s): R13.10 - Dysphagia, unspecified (2) Epigastric pain Current Visit: Yes Status: Acute Assessment and plan: Likely secondary to reflux. Continue PPI. (3) Pancreatitis Current Visit: Yes Status: Acute Assessment and plan: Lipase peaked at 422, and decreased to 129 on 10/02. LFT are normal. Abdominal pain improved. Pt tolerating PO intake. Continue supportive treatment. Plan for EUS as outpatient to determine cause of pancreatitis. If due to gallstones and she may need cholecystectomy. Qualifiers: Chronicity: acute Pancreatitis type: unspecified pancreatitis type Acute pancreatitis complication: no infection or necrosis Qualified Code(s): K85.90 - Acute pancreatitis without necrosis or infection, unspecified - Time Spent With Patient Total time spent is greater than 50% in coordination of care (as documented) at patient's floor/unit and/or counseling patient: GI History of Present Illness - Data of Consult Patient: new to practice Consult date: 10/03/16 Requesting Physician: Henri Nick MD - Consult Narrative Reason for consult: Pancreatitis History of present illness: Ms. Stein is a 61 year old female with PMHx of cardiomyopathy, CHF, COPD, CAD, DM, GERD, HLD, HTN, SC who presented to the ED at [facility] with c/o SOB and was transferred to [place] for further evaluation. She c/o epigastric pain which improved after receiving narcotics. She denies nausea or vomiting. She reports dysphagia with solids and liquids for the past year, feeling like things are getting stuck in her esophagus. She reports EGD 5 years ago which showed reflux. CT A/P showed fatty stranding adjacent to the pancreatic head and duodenal sweep concerning for pancreatitis or peptic ulcer disease. Pt is tolerating PO diet and abdominal pain has improved. LFTs are WNL, Lipase peaked at 422 on 10/01 and was 129 on 10/02. Pt reports social consumption of alcohol, and states Tiffany was the last time she consumed any alcohol. We were consulted to evaluate pancreatitis. Procedures: Per pt report: EGD 5 years ago showing reflux. NSAIDs: ASA Anticoagulation: Plavix Past Med Surg Social Fam HX - Past Medical History Medical history: arthritis, asthma, cardiomyopathy, CHF, COPD, coronary artery disease, diabetes, GERD, hyperlipidemia, hypertension, myocardial infarction, osteoporosis, peripheral artery disease, renal disease, thyroid disease, other Psychiatric history: anxiety, depression, panic disorder, other - Past Surgical History Surgical History: angioplasty/stent (04/2016), breast surgery (X3 for recurrent infection), cataract, hysterectomy, orthopedic, other, MARÍA/BSO, other ( Tonsillectomy adenoidectomy; Fem/Fem bypass) - Social History Smoking Status: Current every day smoker Smokeless Tobacco Status: No Alcohol use: occasionally Drug use: none - Family History Mother Living Status: Hx Family Cardiac Disorders: Yes Hx Family Cancer: Yes Hx Family Endocrine Disorder: Yes - Gastrointestinal Gastrointestinal: Present: as per HPI - Constitutional Constitutional: as per HPI - EENT Eyes: as per HPI Ears: Present: as per HPI Nose, mouth and throat: Present: as per HPI - Cardiovascular Cardiovascular ROS: Present: as per HPI - Respiratory Respiratory IM: Present: as per HPI - Genitourinary Genitourinary: Absent: change in color, Urinary frequency - Neurological ROS Neurological GI: Present: as per HPI - Hematologic/Lymphatic Hematologic/Lymphatic pediatric: Present: as per HPI - Musculoskeletal Musculoskeletal ROS GI: Present: as per HPI - Integumentary Integumentary GI: Present: as per HPI - Psychiatric ROS Psychiatric GI: Present: as per HPI - Endocrine Endocrine IM: Present: as per HPI - Constitutional Vitals: Temp Pulse Resp BP Pulse Ox 98.2 F 64 18 166/71 92 L 10/03/16 07:20 10/03/16 07:20 10/03/16 07:20 10/03/16 07:20 10/03/16 07:20 General appearance: Present: cooperative, A&O X 3, no acute distress, answers questions appropriately - Head Head exam: Present: atraumatic, normocephalic - Eye Eye exam: Present: normal appearance, sclera anicteric - ENT ENT exam: Present: mucous membranes dry - Neck Neck exam general surgery: Present: normal inspection, trachea midline - Respiratory Respiratory exam: Present: wheezes. Absent: rales, rhonchi - Cardiovascular Cardiovascular exam: Present: RRR, +S1, +S2 - GI/Abdominal GI/Abdominal exam: Present: soft, tenderness (midepigastric), no peritoneal signs. Absent: distended, firm, guarding - Rectal Rectal exam: Present: deferred - Extremities Exam Extremities exam: Present: warm - Neurological Exam Neurological exam: Present: no focal deficits - Psychiatric Psychiatric exam: Present: normal affect, normal mood - Skin Skin exam: Present: dry, intact, normal color, warm Results - Labs CBC & Chem 7: 10/03/16 05:28 10/03/16 05:28 Labs: Last Result Calcium 9.9 mg/dL (8.6-10.8) 10/03/16 05:28 Troponin I 0.16 ng/mL (0-0.03) H* 09/30/16 11:13 Triglycerides 196 mg/dL (< 150) H 09/29/16 04:34 Entire Visit Hgb 11.2 g/dL (11.5-15.4) L 10/03/16 05:28 Hct 33.9 % (35.3-44.9) L 10/03/16 05:28 PT 13.5 Seconds (9.4-12.1) H 09/29/16 04:34 Total Bilirubin 0.8 mg/dL (0.2-1.2) 10/03/16 05:28 AST 15 Units/L (5-34) 10/03/16 05:28 ALT 8 Units/L (0-55) 10/03/16 05:28 Amylase 43 Units/L (25-125) 10/01/16 05:10 Lipase 129 Units/L (8-78) H 10/02/16 03:59 - ABG ABG results: PT/INR, D-dimer PT 13.5 Seconds (9.4-12.1) H 09/29/16 04:34 - Impressions Impressions Chest X-Ray 10/02/16 14:27 IMPRESSION: Worsened patchy/hazy opacities to the lungs bilaterally, left more than right, from prior CT chest 09/28/2016. Superimposed mild pulmonary vascular congestion along with likely trace bilateral pleural effusions. Findings may be on the basis of congestive heart failure, but multifocal infectious or inflammatory infiltrates not excluded. Continued follow-up recommended. D/ / 10/02/2016 15:20:37 Brad Pacheco MD / Precious Grant Interpreting Provider: Brad Pacheco MD Consult Discharge Plan - Plan Referrals: Amy Ocampo, ACETYLENE BURNER [Primary Care Provider] - <BrenardoromainLaraGretchen - Last Filed: 10/03/16 14:41> Date of Encounter: 10/03/16 Time of Encounter: 14:00 - Time Spent With Patient Total time spent is greater than 50% in coordination of care (as documented) at patient's floor/unit and/or counseling patient: GI History of Present Illness - Data of Consult Requesting Physician: Henri Nick MD - Consult Narrative History of present illness: Ms. tSein is a 61 year old female - Constitutional Vitals: Temp Pulse Resp BP Pulse Ox 97.9 F 65 16 159/59 92 L 10/03/16 12:27 10/03/16 12:27 10/03/16 12:27 10/03/16 12:27 10/03/16 12:27 Results - Labs CBC & Chem 7: 10/03/16 05:28 10/03/16 05:28 Labs: Last Result Calcium 9.9 mg/dL (8.6-10.8) 10/03/16 05:28 Troponin I 0.16 ng/mL (0-0.03) H* 09/30/16 11:13 Triglycerides 196 mg/dL (< 150) H 09/29/16 04:34 Entire Visit Hgb 11.2 g/dL (11.5-15.4) L 10/03/16 05:28 Hct 33.9 % (35.3-44.9) L 10/03/16 05:28 PT 13.5 Seconds (9.4-12.1) H 09/29/16 04:34 Total Bilirubin 0.8 mg/dL (0.2-1.2) 10/03/16 05:28 AST 15 Units/L (5-34) 10/03/16 05:28 ALT 8 Units/L (0-55) 10/03/16 05:28 Amylase 43 Units/L (25-125) 10/01/16 05:10 Lipase 129 Units/L (8-78) H 10/02/16 03:59 - ABG ABG results: PT/INR, D-dimer PT 13.5 Seconds (9.4-12.1) H 09/29/16 04:34 - Impressions Impressions Chest X-Ray 10/02/16 14:27
--- NOTE | 2016-10-03 12:58 | Internal Med Progress Note ---
<Ivan Bonilla - Last Filed: 10/03/16 12:55> Date of Encounter: 10/03/16 Time of Encounter: 08:00 - Assessment and plan (1) Decompensated COPD with exacerbation (chronic obstructive pulmonary disease) Current Visit: Yes Status: Acute Assessment and plan: Mrs. Stein was admitted with COPD exacerbation requiring increase in oxygen demand on 10/02/2016 to 4 liters NC. CXR on 10/02/2016 demonstrated diffuse pulmonary edema. IV fluids discontinued and 40mg IV Lasix once given. Patient is stable Plan: -Continue DuoNeb 4 times a day scheduled - Continue PRN albuterol nebulizer. - Continue Singulair 10 mg by mouth at bedtime - Continue prednisone 40 mg by mouth daily - Continue Levaquin every 48 hours (2) Elevated troponin I measurement Current Visit: Yes Status: Acute Assessment and plan: Suspected demand ischemia. Patient was seen by cardiology, who have now signed off. (3) CAD (coronary artery disease) Current Visit: Yes Status: Chronic Assessment and plan: Patient has known coronary artery disease. History of left heart catheter April 2016 with single-vessel EVERARDO in the RCA. -Continue simvastatin 40 mg by mouth at bedtime - Continue beta jessica, Plavix, aspirin Qualifiers: Coronary Disease-Associated Artery/Lesion type: jackson artery [place] vs. transplanted heart: jackson heart Associated angina: angina presence unspecified Qualified Code(s): I25.10 - Atherosclerotic heart disease of jackson coronary artery without angina pectoris (4) Chronic kidney disease, stage 3 Current Visit: Yes Status: Chronic Assessment and plan: Patient is a history of CKD stage III with KEISHA resolved. IV fluids held on 03/2017 Plan: - Monitor renal function with a.m. labs. (5) Diabetes mellitus type 2 in obese Current Visit: Yes Status: Chronic Assessment and plan: Patient is a known type II diabetic who is on glipizide and Tradjenta at home , hemoglobin A1c on 09/29/2016 was 5.6. Glucoses have been elevated likely secondary to steroids. Plan: -Continue high dose insulin sliding scale. (6) Hypothyroidism Current Visit: Yes Status: Acute Assessment and plan: Known history of hypothyroidism with a TSH of 0.123. Plan: - Continue home dose of levothyroxine at 125mcg po daily Qualifiers: Qualified Code(s): E03.9 - Hypothyroidism, unspecified (7) HTN (hypertension) Current Visit: Yes Status: Acute Assessment and plan: Patient has no history of hypertension with current elevated blood pressures. Plan: - Continue Norvasc 10 mg by mouth daily - Continue Toprol XL 25 mg by mouth scheduled - Continue to monitor blood pressures. Qualifiers: Qualified Code(s): I10 - Essential (primary) hypertension (8) Epigastric pain Current Visit: Yes Status: Acute Assessment and plan: Patient had epigastric pain with acute onset during inpatient stay. Right upper quadrant ultrasound did not demonstrate any cholelithiasis or gallbladder wall thickening. Initial Lipase 422, CT of the abdomen demonstrates fatty stranding adjacent to the pancreatic head and duodenal sweep with concerns for pancreatitis but was also mentioned seen in peptic ulcer disease She has been on steroids and anticoagulation with a history of GERD there is concern for possible gastritis versus gastric or duodenal ulceration. Patient also complains of trouble with swallowing. She has not had solid food since her admission. Plan: - EGD scheduled for today performed by GI for dysphagia, abd pain and acute onset pancreatitis. - Continue NPO until post procedure - Monitor electrolytes and renal function. (9) Pancreatitis Current Visit: Yes Status: Acute Assessment and plan: Patient epigastric symptoms improving. Lipase collected with a high of 422, CT of the abdomen demonstrates fatty stranding adjacent to the pancreatic head and duodenal sweep with concerns for pancreatitis but was also mentioned seen in peptic ulcer disease. RUQ did not demonstrate any cholilethiasis. Medications reviewed. Renal function is stable. Electrolytes are stable, Vitals stable. 10/02/2016: Patient tolerating clear liquid diet. No worsening of abdominal pain. Lipase trending down. 10/03/2016: Abdominal pain resolved. Patient tolerated soft diet last evening. Plan: - Continue rehydration therapy - Continue current diet with plans to advance diet tomorrow. Qualifiers: Chronicity: acute Pancreatitis type: unspecified pancreatitis type Acute pancreatitis complication: no infection or necrosis Qualified Code(s): K85.90 - Acute pancreatitis without necrosis or infection, unspecified (10) Hypokalemia Current Visit: Yes Status: Acute Assessment and plan: Potassiume 2.9 After receiving Lasix 10/02/2016 along with pancreatitis. Patient stable. Plan: - Potassium Chloride 40meq IVPB over 4 hours. - Subjective Interval history: Mrs. Stein has been seen and evaluated patient bedside this morning. She is alert awake interactive in no acute distress. She says that her abdominal pain is 100% better and she denies any pain or discomfort. She continues to have some shortness of breath but says it is improved since receiving some Lasix last evening. She denies any other pains or discomfort this morning. - Constitutional Vitals: Temp Pulse Resp BP Pulse Ox 97.9 F 65 16 159/59 92 L 10/03/16 12:27 10/03/16 12:27 10/03/16 12:27 10/03/16 12:27 10/03/16 12:27 General appearance: Present: cooperative, mild distress, A&O X 3, morbidly obese , answers questions appropriately - Head Head exam: Present: atraumatic, normocephalic - Eye Eye exam: Present: PERRL, conjuntiva pink, sclera anicteric Pupils: Present: PERRL - Neck Neck exam general surgery: Present: supple, trachea midline. Absent: lymphadenopathy - Respiratory Additional comments: diffuse expiratory wheeze. Chest is symmetric with thoracic movement correlating with respiratory effort. - Cardiovascular Cardiovascular exam: Present: RRR, +S1, +S2. Absent: diastolic murmur, gallop, rubs, systolic murmur - GI/Abdominal GI/Abdominal exam: Present: normal bowel sounds, soft, no peritoneal signs. Absent: distended, tenderness Additional comments: Obese abdomen. - Extremities Exam Extremities exam: Present: warm, radial pulses palpable and symetrical. Absent : calf tenderness, cyanotic, pedal edema - Neurological Exam Neurological exam: Present: alert, oriented X3, no focal deficits. Absent: pronater drift, facial droop, speech deficit - Psychiatric Psychiatric exam: Present: normal affect, normal mood - Skin Skin exam: Present: dry, intact Internal Medicine: Result - Labs CBC & Chem 7: 10/03/16 05:28 10/03/16 05:28 Labs: Short CBC 10/03/16 Range/Units 05:28 WBC 14.5 H (4.3-11.1) K/mcL Hgb 11.2 L (11.5-15.4) g/dL Hct 33.9 L (35.3-44.9) % Plt Count 264 (140-400) K/mcL Neutrophils # 12.0 H (1.6-8.9) K/mcL BMP 10/03/16 05:28 Sodium 138 Potassium 2.9 L Chloride 104 Carbon Dioxide 22 BUN 15 Creatinine 0.99 Glucose 155 H Calcium 9.9 Liver Function 10/03/16 Range/Units 05:28 Total Bilirubin 0.8 (0.2-1.2) mg/dL AST 15 (5-34) Units/L ALT 8 (0-55) Units/L Alkaline Phosphatase 65 (38-126) Units/L Albumin 2.0 L (3.5-5.0) g/dL - ABG Interpretation ABG results: PT/INR, D-dimer PT 13.5 Seconds (9.4-12.1) H 09/29/16 04:34 - Impressions Impressions Chest X-Ray 10/02/16 14:27 IMPRESSION: Worsened patchy/hazy opacities to the lungs bilaterally, left more than right, from prior CT chest 09/28/2016. Superimposed mild pulmonary vascular congestion along with likely trace bilateral pleural effusions. Findings may be on the basis of congestive heart failure, but multifocal infectious or inflammatory infiltrates not excluded. Continued follow-up recommended. D/ / 10/02/2016 15:20:37 Brad Pacheco MD / Precious Grant Interpreting Provider: Brad Pacheco MD Consult Discharge Plan - Plan Referrals: Amy Ocampo, [facility] [facility] [Primary Care Provider] - <Henri Nick P - Last Filed: 10/03/16 16:44> - Assessment and plan (1) Decompensated COPD with exacerbation (chronic obstructive pulmonary disease) Current Visit: Yes Status: Acute (2) Elevated troponin I measurement Current Visit: Yes Status: Acute (3) CAD (coronary artery disease) Current Visit: Yes Status: Chronic Qualifiers: Coronary Disease-Associated Artery/Lesion type: jackson artery [place] vs. transplanted heart: jackson heart Associated angina: angina presence unspecified Qualified Code(s): I25.10 - Atherosclerotic heart disease of jackson coronary artery without angina pectoris (4) Diabetes mellitus type 2 in obese Current Visit: Yes Status: Chronic (5) Chronic kidney disease, stage 3 Current Visit: Yes Status: Chronic - Constitutional Vitals: Temp Pulse Resp BP Pulse Ox 97.8 F 60 18 177/78 95 10/03/16 16:00 10/03/16 16:00 10/03/16 16:00 10/03/16 16:00 10/03/16 16:00 Internal Medicine: Result - Labs CBC & Chem 7: 10/03/16 05:28 10/03/16 05:28 Labs: Short CBC 10/03/16 Range/Units 05:28 WBC 14.5 H (4.3-11.1) K/mcL Hgb 11.2 L (11.5-15.4) g/dL Hct 33.9 L (35.3-44.9) % Plt Count 264 (140-400) K/mcL Neutrophils # 12.0 H (1.6-8.9) K/mcL BMP 10/03/16 05:28 Sodium 138 Potassium 2.9 L Chloride 104 Carbon Dioxide 22 BUN 15 Creatinine 0.99 Glucose 155 H Calcium 9.9 Liver Function 10/03/16 Range/Units 05:28 Total Bilirubin 0.8 (0.2-1.2) mg/dL AST 15 (5-34) Units/L ALT 8 (0-55) Units/L Alkaline Phosphatase 65 (38-126) Units/L Albumin 2.0 L (3.5-5.0) g/dL - ABG Interpretation ABG results: PT/INR, D-dimer PT 13.5 Seconds (9.4-12.1) H 09/29/16 04:34 - Attending Attestation possible home tomorrow asb pain and swelling disappeared
[2016-10-03] MEDS ORDERED: *HR* Midazolam HCl 5 MG/5 ML VIAL IVP ONE ×2 (14:40→14:42)
[2016-10-03] MEDS ORDERED: *HR* Midazolam HCl 5 MG/5 ML VIAL IVP PRN (14:41)
[2016-10-03] MEDS ORDERED: *HR* FentaNYL (PF) 100 MCG/2 ML VIAL IVP PRN (14:41)
[2016-10-03] MEDS ORDERED: Simethicone 40 MG/0.6 ML MLS IR ONE (14:41)
[2016-10-03] MEDS ORDERED: Tetracaine/Benzocaine/Butamben 200MG/SPRAY (100SPY/BOT) MM ONE (14:41)
[2016-10-03] MEDS ORDERED: *HR* FentaNYL (PF) 100 MCG/2 ML VIAL ONE (14:41)
--- NOTE | 2016-10-03 14:42 | Pre-Sedation Evaluation ---
Pre-sedation evaluation - Pre-sedation checklist Procedure: LEFT HEART CATH Recent Vitals: Last Vital Signs Temp 97.9 F 10/03/16 12:27 Pulse 65 10/03/16 12:27 Resp 16 10/03/16 12:27 BP 159/59 10/03/16 12:27 Pulse Ox 92 L 10/03/16 12:27 H&P (including ROS) documented in medical record: Yes Previous reaction to sedatives/anesthetics: No Dietary Status: NPO after Midnight Dentition: full dentition ASA Classification *see protocol: CLASS III-Severe systemic disease Plan of Care: Pt appropriate candidate for procedure/moderate/conscious sedation , Risks/benefits of procedure/sedation discussed w/ patient/family
[2016-10-03] MEDS: Nicotine 21 MG PATCH.TD24 TD SCH (17:00)
[2016-10-03] MEDS: Gabapentin 300 MG CAPSULE PO SCH ×3 (17:01→21:28)
[2016-10-03] MEDS: predniSONE 20 MG TABLET PO SCH (17:02)
[2016-10-03] MEDS: FLUoxetine 20 MG CAPSULE PO SCH (17:02)
[2016-10-03] MEDS: Aspirin Enteric Coated 81 MG Tablet PO SCH (17:02)
[2016-10-03] MEDS: Metoprolol XL (24 HR) Succ 25 MG TAB.ER.24H PO SCH (17:02)
[2016-10-03] MEDS: amLODIPine 5 MG TABLET PO SCH (17:03)
[2016-10-03] MEDS: Nystatin POWDER 30 GM BOTTLE TP SCH ×3 (17:17→21:30)
[2016-10-03] MEDS: Fenofibrate 54 MG TABLET PO SCH (21:27)
[2016-10-03] MEDS: ALPRAZolam 0.25 MG TABLET PO SCH (21:28)
[2016-10-03] MEDS: Melatonin 3 MG TABLET PO SCH (21:46)
[2016-10-04] MEDS: Piperacillin/Tazobactam 3.375 GM in D5% in Water (Mini-Bag+) 100 ML IVPB SCH (03:04)
[2016-10-04] MEDS: Ipratropium/Albuterol Neb 3 ML IH SCH ×4 (04:31→23:16)
[2016-10-04 05:51] LABS: Basophils % 0.3 %; Hematocrit 31.6 % (35.3-44.9); Hemoglobin 10.4 g/dL (11.5-15.4); Immature Granulocytes % 2.7 % (0-4); Immature Platelets 4.4 % (1.1-6.1); Lymphocytes # 0.6 K/mcL (0.6-4.6); Mean Corpuscular HGB Conc 32.9 g/dL (31.6-35.5); Mean Corpuscular Hemoglobin 27.1 pg (28.0-33.3); Mean Corpuscular Volume 82.3 fL (83.0-100.0); Monocytes # 0.5 K/mcL (0.0-1.3); Monocytes % 5.1 %; Neutrophils # 9.2 K/mcL (1.6-8.9); Platelet Count 289 K/mcL (140-400); Red Blood Count 3.84 M/mcL (3.82-4.97); Red Cell Distribution Width 13.9 % (11.5-14.5); Segmented Neutrophils % 85.9 %
[2016-10-04 05:59] LABS: Alanine Aminotransferase 7 Units/L (0-55); Albumin/Globulin Ratio 0.4 (1.1-2.2); Alkaline Phosphatase 63 Units/L (38-126); Aspartate Amino Transferase 10 Units/L (5-34); BUN/Creatinine Ratio 17 (6-26); Bilirubin,Total 0.8 mg/dL (0.2-1.2); Blood Urea Nitrogen 15 mg/dL (7-20); Calcium 9.9 mg/dL (8.6-10.8); Carbon Dioxide 23 mEq/L (19-29); Chloride 103 mEq/L (98-109); Globulin 4.8 g/dL (2.4-3.5); Glucose 190 mg/dL (70-99); Osmolality,Calculated 292 (280-300); Potassium 3.3 mEq/L (3.5-4.5); Sodium 138 mEq/L (136-145); Total Protein 6.7 g/dL (6.0-8.3); eGFR For African Americans > 60 (> 60); eGFR For Non-African Americans > 60 (> 60)
[2016-10-04 06:00] LABS: Albumin 1.9 g/dL (3.5-5.0)
[2016-10-04] MEDS: *HR* Heparin 5,000 UNIT/ML VIAL SQ SCH ×2 (06:20→19:44)
[2016-10-04] MEDS: Pantoprazole 40 MG VIAL IVP SCH ×2 (06:21→19:45)
[2016-10-04] MEDS: amLODIPine 5 MG TABLET PO SCH (08:35)
[2016-10-04] MEDS: Aspirin Enteric Coated 81 MG Tablet PO SCH (08:35)
[2016-10-04] MEDS: Gabapentin 300 MG CAPSULE PO SCH ×3 (08:35→21:05)
[2016-10-04] MEDS: Insulin LISPRO 300 UNITS/3 ML VIAL SQ SCH ×4 (08:36→21:04)
[2016-10-04] MEDS: Nicotine 21 MG PATCH.TD24 TD SCH (08:36)
[2016-10-04] MEDS: Nystatin POWDER 30 GM BOTTLE TP SCH ×3 (08:36→20:55)
[2016-10-04] MEDS: predniSONE 20 MG TABLET PO SCH (08:36)
--- NOTE | 2016-10-04 10:26 | Discharge Summary ---
Time of Encounter: 10:11 - Discharge Diagnosis (1) Decompensated COPD with exacerbation (chronic obstructive pulmonary disease) Priority: Primary Status: Acute (2) Elevated troponin I measurement Priority: Secondary Status: Acute (3) CAD (coronary artery disease) Priority: Secondary Status: Chronic Qualifiers: Coronary Disease-Associated Artery/Lesion type: koi artery [place] vs. transplanted heart: koi heart Associated angina: angina presence unspecified Qualified Code(s): I25.10 - Atherosclerotic heart disease of [place] coronary artery without angina pectoris (4) Chronic kidney disease, stage 3 Priority: Secondary Status: Chronic (5) Diabetes mellitus type 2 in obese Priority: Secondary Status: Chronic (6) Hypothyroidism Priority: Secondary Status: Acute (7) HTN (hypertension) Priority: Secondary Status: Acute (8) Epigastric pain Priority: Primary Status: Acute (9) Pancreatitis Priority: Primary Status: Acute Qualifiers: Chronicity: acute Pancreatitis type: unspecified pancreatitis type Acute pancreatitis complication: no infection or necrosis Qualified Code(s): K85.90 - Acute pancreatitis without necrosis or infection, unspecified (10) Hypokalemia Priority: Primary Status: Acute - Discharge Medications Prescriptions: Albuterol Sulfate [Proair Hfa] 1 puff IH Q4HR PRN #1 inh PRN Reason: Shortness Of Breath/Wheezing Budesonide/Formoterol 160/4.5 [Symbicort 160/4.5] 1 puff IH DAILY #1 inhaler Levofloxacin [Levaquin] 750 mg PO ONCE #1 tablet Nicotine Patch [Nicoderm] 21 mg TD DAILY #30 patch.td24 Pantoprazole [Protonix] 40 mg IVP DAILY #14 vial PredniSONE 40 mg PO DAILY #2 tablet Home Medications: Alprazolam [Xanax 0.25 MG Tablet] 0.25 mg PO TID PRN 12/19/15 [History] Amlodipine Besylate 10 mg PO DAILY 12/19/15 [History] Ergocalciferol (VITAMIN D2) [Vitamin D2 (50,000 UNIT)] 50,000 unit PO PARK [History] FLUoxetine HCl [Prozac] 40 mg PO QPM 12/19/15 [History] Gabapentin [Neurontin] 300 mg PO TID 12/19/15 [History] Levothyroxine [Synthroid] 125 mcg PO DAILY 12/19/15 [History] Metoprolol XL (24 HR) Succ [Toprol Xl] 25 mg PO QPM 12/19/15 [History] Nitroglycerin 0.4 mg SL Q5MIN PRN 12/19/15 [History] Simvastatin [Zocor] 40 mg PO HS 12/19/15 [History] Cholecalciferol (Vitamin D3) [Vitamin D3] 2,000 unit PO DAILY 02/28/16 [History] Linagliptin [Tradjenta] 5 mg PO DAILY 02/28/16 [History] Aspirin Enteric Coated [Aspirin EC] 81 mg PO DAILY 03/21/16 [History] Clopidogrel [Plavix] 75 mg PO QPM 03/21/16 [History] Ranitidine HCl [Zantac] 300 mg PO DAILY 03/21/16 [History] Fenofibrate Nanocrystallized [Fenofibrate] 145 mg PO DAILY 09/29/16 [History] GlipiZIDE XL (24 HR) [Glucotrol XL] 10 mg PO BID 09/29/16 [History] OxyCODONE/APAP 5/325 [Percocet 5/325 MG] 1 tab PO Q6HR PRN 09/29/16 [History] Albuterol Sulfate [Proair Hfa] 1 puff IH Q4HR PRN #1 inh 10/04/16 [Rx] Budesonide/Formoterol 160/4.5 [Symbicort 160/4.5] 1 puff IH DAILY #1 inhaler 06/10 [Rx] Levofloxacin [Levaquin] 750 mg PO ONCE #1 tablet 10/04/16 [Rx] Nicotine Patch [Nicoderm] 21 mg TD DAILY #30 patch.td24 10/04/16 [Rx] Pantoprazole [Protonix] 40 mg IVP DAILY #14 vial 10/04/16 [Rx] PredniSONE 40 mg PO DAILY #2 tablet 10/04/16 [Rx] Allergies/Adverse Reactions: Allergies No Known Allergies Allergy (Verified 04/24/16 08:30) Date of admission: 09/29/16 11:06 Primary care physician: Amy Ocampo CNP Consults: 09/28/16 20:45 Consult to Cardiac Rehabilitation-Phase1 [CONS] Routine Comment: Reason for Consult: AMI Call Completed: Yes Consult to Nurse Navigator [CONS] Routine Comment: Consult to Nurse Navigator [CONS] Routine Comment: 09/29/16 08:00 Consult to Cardiology [CONS] Routine Comment: Consulting Provider: Cardiology Reyna Reason for Consult: ACS type II nstemi in counseling and COPD exacerbation in patient with long-standing history of CAD/PTCA/stents/AMI. Please evaluate and advise. Time Notified: 20:57 Call Completed: Yes 09/30/16 16:42 Consult to Speech Therapy [CONS] Routine Comment: Evaluate, develop and implement POC Reason for Consult: PATIENT STATES SHE HAS HAD TROUBLE SWALLOWING FOR A LONG TIME Call Completed: No 09/30/16 17:09 Consult to Surgery [CONS] Routine Consulting Provider: Surgery Reyna Surgical Reason for Consult: EGD, Discussed with Dr. Schafer Call Completed: Yes 10/01/16 16:56 Consult to Perl Programmer [CONS] Routine Reason for SW Consult: Poss new home O2 at discharge. 10/02/16 14:25 Consult to Gastroenterology [CONS] Routine Consulting Provider: Gastroenterology Reyna Reason for Consult: Pancreatitis Call Completed: Yes Discharging clinician: Ivan Bonilla Anticipated date of discharge: 10/04/16 - Patient Status Disposition: Home, Self-Care Condition: Good Functional capacity at discharge: independent ambulation Overall status at discharge: patient is progressing back to baseline - Discharge Instructions Instructions: Heart Failure (DC), Chest Pain (DC), Acute Respiratory Distress Syndrome (DC) Follow Up With: Amy Ocampo CNP [Primary Care Provider] - Additional Instructions: Take medications as prescribed. Follow up with PCP in 3-5 days for re-evaluation Wear oxygen as prescribed. - Diet and Activity Activity: increase activity as tolerated Diet: diabetic diet Hospital course: Ms. Stein is a 61 year old female arthritis, asthma, cardiomyopathy, CHF, COPD , coronary artery disease, diabetes, GERD, hyperlipidemia, hypertension, myocardial infarction, osteoporosis, peripheral artery disease, renal disease, thyroid disease, and is a current everyday smoker was admitted on 09/28/2016 with a COPD exacerbation and elevated troponin levels. She was admitted to the general medical floor and started on antibiotic overage, PO steroids, and respiratory nebulizers. Cardiology was consulted and examined the patient. Troponins were trended down and determined to be demand ischemia in the setting of acute illness. Echo resulted-EF 55-60%, mild diastolic dysfunction. No wall motion abnormalities noted. On 09/30/2016 she had acute onset of epigastric pain and underwent CT of the abdomen and labs were collected demonstrating acute onset pancreatitis. GI was consulted as the patient had new onset pancreatitis, was on steroids and heparin and it was determined that she would benefit from endoscopy. Endoscopy demonstrated gastritis. She continued treatment for her COPD exacerbation and underwent Pulse Ox monitoring overnight conducted by respiratory therapy. It was determined she would benefit from home oxygen. Her abdominal pain resolved and she was able to tolerate PO intake without discomfort. She was seen and examined on 10/04/2016 and determined stable to discharge home with home oxygen. She denied having any inhalers at home and scripts were provided for Symbacort and Albuterol inhalers. She was provided a script for her last dose of Levaquin and two remaining doses of Prednisone. This plan was discussed with Ms. Stein at the time of discharge and she agrees. She would likely benefit from outpatient PFTs to establish the severity of her lung disease and further adjustments to her antibiotics. - Time Spent with Patient Total time spent providing and/or coordinating discharge services: - Constitutional Vitals: Temp Pulse Resp BP Pulse Ox 97.6 F 61 18 169/77 95 10/04/16 07:28 10/04/16 07:28 10/04/16 07:28 10/04/16 07:28 10/04/16 07:28 General appearance: Present: cooperative, A&O X 3, morbidly obese, obese - Head Head exam: Present: atraumatic, normocephalic - Eye Eye exam: Present: PERRL, conjuntiva pink, sclera anicteric Pupils: Present: PERRL - Neck Neck exam general surgery: Present: supple, trachea midline. Absent: lymphadenopathy - Respiratory Additional comments: Diffuse expiratory wheeze. - Cardiovascular Cardiovascular exam: Present: RRR, +S1, +S2. Absent: diastolic murmur, gallop, rubs, systolic murmur - GI/Abdominal GI/Abdominal exam: Present: normal bowel sounds, soft, no peritoneal signs. Absent: distended, tenderness - Extremities Exam Extremities exam: Present: warm, radial pulses palpable and symetrical. Absent : calf tenderness, cyanotic, pedal edema - Neurological Exam Neurological exam: Present: alert, oriented X3, no focal deficits. Absent: pronater drift, facial droop, speech deficit - Psychiatric Psychiatric exam: Present: normal affect, normal mood
[2016-10-04 10:46] LABS: ABG Base Excess 3.2 mEq/L (-2.0 to 3.0); ABG HCO3 26.9 mEQ/L (21-27); ABG Oxygen Saturation 89 % (95-98); ABG PCO2 37 mmHg (35-45); ABG PH 7.47 pH Units (7.32-7.45); ABG PO2 52 mmHg (85-104)
[2016-10-04 10:48] LABS: Blood Gas FiO2 32 %
--- NOTE | 2016-10-04 14:23 | Internal Med Progress Note ---
<ThierryIvan griffith Leonard - Last Filed: 10/04/16 14:30> Date of Encounter: 10/04/16 Time of Encounter: 14:22 - Assessment and plan (1) Decompensated COPD with exacerbation (chronic obstructive pulmonary disease) Current Visit: Yes Status: Acute Assessment and plan: Mrs. Stein was admitted with COPD exacerbation requiring increase in oxygen demand on 10/02/2016 to 4 liters NC. CXR on 10/02/2016 demonstrated diffuse pulmonary edema. IV fluids discontinued and 40mg IV Lasix once given. Patient is stable Plan: -Continue DuoNeb 4 times a day scheduled - Continue PRN albuterol nebulizer. - Continue Singulair 10 mg by mouth at bedtime - Continue prednisone 40 mg by mouth daily - Give last dose of Levaquin 750 mg tomorrow morning. (2) Elevated troponin I measurement Current Visit: Yes Status: Acute Assessment and plan: Suspected demand ischemia. Patient was seen by cardiology, who have now signed off. (3) CAD (coronary artery disease) Current Visit: Yes Status: Chronic Assessment and plan: Patient has known coronary artery disease. History of left heart catheter April 2016 with single-vessel EVERARDO in the RCA. -Continue simvastatin 40 mg by mouth at bedtime - Continue beta jessica, Plavix, aspirin Qualifiers: Coronary Disease-Associated Artery/Lesion type: [place] artery [place] vs. transplanted heart: [place] heart Associated angina: angina presence unspecified Qualified Code(s): I25.10 - Atherosclerotic heart disease of [place] coronary artery without angina pectoris (4) Chronic kidney disease, stage 3 Current Visit: Yes Status: Chronic Assessment and plan: Patient is a history of CKD stage III with KEISHA resolved. IV fluids held on 03/2017 Plan: Renal function stable. (5) Diabetes mellitus type 2 in obese Current Visit: Yes Status: Chronic Assessment and plan: Patient is a known type II diabetic who is on glipizide and Tradjenta at home , hemoglobin A1c on 09/29/2016 was 5.6. Glucoses have been elevated likely secondary to steroids. Plan: -Continue high dose insulin sliding scale. - Plan to discontinue glipizide and start metformin at time of discharge. Patient is a 61-year-old type II diabetic with a hemoglobin A1c of 5.6. (6) Hypothyroidism Current Visit: Yes Status: Acute Assessment and plan: Known history of hypothyroidism with a TSH of 0.123. Plan: - Continue home dose of levothyroxine at 125mcg po daily Qualifiers: Qualified Code(s): E03.9 - Hypothyroidism, unspecified (7) HTN (hypertension) Current Visit: Yes Status: Acute Assessment and plan: Patient has no history of hypertension with current elevated blood pressures. Plan: - Continue Norvasc 10 mg by mouth daily - Continue Toprol XL 25 mg by mouth scheduled - Start lisinopril 10 mg by mouth Qualifiers: Qualified Code(s): I10 - Essential (primary) hypertension (8) Epigastric pain Current Visit: Yes Status: Acute Assessment and plan: Patient had epigastric pain with acute onset during inpatient stay. Right upper quadrant ultrasound did not demonstrate any cholelithiasis or gallbladder wall thickening. Initial Lipase 422, CT of the abdomen demonstrates fatty stranding adjacent to the pancreatic head and duodenal sweep with concerns for pancreatitis but was also mentioned seen in peptic ulcer disease She has been on steroids and anticoagulation with a history of GERD there is concern for possible gastritis versus gastric or duodenal ulceration. Patient also complains of trouble with swallowing. She has not had solid food since her admission. 10/04/2016 patient is without epigastric pain and stable. Plan: - Monitor patient's symptoms and a lot like the patient lives. (9) Pancreatitis Current Visit: Yes Status: Acute Assessment and plan: Patient epigastric symptoms improving. Lipase collected with a high of 422, CT of the abdomen demonstrates fatty stranding adjacent to the pancreatic head and duodenal sweep with concerns for pancreatitis but was also mentioned seen in peptic ulcer disease. RUQ did not demonstrate any cholilethiasis. Medications reviewed. Renal function is stable. Electrolytes are stable, Vitals stable. 10/02/2016: Patient tolerating clear liquid diet. No worsening of abdominal pain. Lipase trending down. 10/03/2016: Abdominal pain resolved. Patient tolerated soft diet last evening. 10/04/2016: No abdominal pain, patient is tolerating diet. Plan: - Continue rehydration therapy - Continue current diet with plans to advance diet tomorrow. Qualifiers: Chronicity: acute Pancreatitis type: unspecified pancreatitis type Acute pancreatitis complication: no infection or necrosis Qualified Code(s): K85.90 - Acute pancreatitis without necrosis or infection, unspecified (10) Hypokalemia Current Visit: Yes Status: Acute Assessment and plan: Low potassium this morning. Patient given 40meq potassium by mouth. Plan: - Recheck potassium in a.m. - Subjective Interval history: Mrs. Stein has been seen and evaluated patient bedside this morning. She is alert awake interactive in no acute distress. She is hopeful to go home this morning. She denies any headaches, chest pain, shortness of breath, palpitations or chest pressure. She feels well enough to go home. - Constitutional Vitals: Temp Pulse Resp BP Pulse Ox 97.8 F 59 20 178/89 93 L 10/04/16 11:41 10/04/16 11:41 10/04/16 11:41 10/04/16 11:41 10/04/16 11:41 General appearance: Present: cooperative, A&O X 3, morbidly obese, obese - Head Head exam: Present: atraumatic, normocephalic - Eye Eye exam: Present: PERRL, conjuntiva pink, sclera anicteric Pupils: Present: PERRL - Neck Neck exam general surgery: Present: supple, trachea midline. Absent: lymphadenopathy - Respiratory Respiratory exam: Present: CTAB. Absent: accessory muscle use, rales, rhonchi, wheezes - Cardiovascular Cardiovascular exam: Present: RRR, +S1, +S2. Absent: diastolic murmur, gallop, rubs, systolic murmur - GI/Abdominal GI/Abdominal exam: Present: normal bowel sounds, soft, no peritoneal signs. Absent: distended, tenderness - Extremities Exam Extremities exam: Present: warm, radial pulses palpable and symetrical. Absent : calf tenderness, cyanotic, pedal edema - Neurological Exam Neurological exam: Present: alert, oriented X3, no focal deficits. Absent: pronater drift, facial droop, speech deficit - Psychiatric Psychiatric exam: Present: normal affect, normal mood - Skin Skin exam: Present: intact, warm Internal Medicine: Result - Labs CBC & Chem 7: 10/04/16 05:40 10/04/16 05:40 Labs: Short CBC 10/04/16 Range/Units 05:40 WBC 10.7 (4.3-11.1) K/mcL Hgb 10.4 L (11.5-15.4) g/dL Hct 31.6 L (35.3-44.9) % Plt Count 289 (140-400) K/mcL Neutrophils # 9.2 H (1.6-8.9) K/mcL BMP 10/04/16 05:40 Sodium 138 Potassium 3.3 L Chloride 103 Carbon Dioxide 23 BUN 15 Creatinine 0.86 Glucose 190 H Calcium 9.9 Liver Function 10/04/16 Range/Units 05:40 Total Bilirubin 0.8 (0.2-1.2) mg/dL AST 10 (5-34) Units/L ALT 7 (0-55) Units/L Alkaline Phosphatase 63 (38-126) Units/L Albumin 1.9 L (3.5-5.0) g/dL - ABG Interpretation ABG results: ABG ABG pH 7.47 pH Units (7.32-7.45) H 10/04/16 10:39 ABG pCO2 37 mmHg (35-45) 10/04/16 10:39 ABG pO2 52 mmHg (85-104) L 10/04/16 10:39 ABG O2 Saturation 89 % (95-98) L 10/04/16 10:39 PT/INR, D-dimer PT 13.5 Seconds (9.4-12.1) H 09/29/16 04:34 Consult Discharge Plan - Plan Instructions: Heart Failure (DC), Chest Pain (DC), Acute Respiratory Distress Syndrome (DC) Additional Instructions: Take medications as prescribed. Follow up with PCP in 3-5 days for re-evaluation Wear oxygen as prescribed. Referrals: Amy Ocampo, SENIOR CONTROLS TECHNICIAN [Primary Care Provider] - Prescriptions: Albuterol Sulfate [Proair Hfa] 1 puff IH Q4HR PRN #1 inh PRN Reason: Shortness Of Breath/Wheezing Budesonide/Formoterol 160/4.5 [Symbicort 160/4.5] 1 puff IH DAILY #1 inhaler Levofloxacin [Levaquin] 750 mg PO ONCE #1 tablet Nicotine Patch [Nicoderm] 21 mg TD DAILY #30 patch.td24 Pantoprazole [Protonix] 40 mg IVP DAILY #14 vial PredniSONE 40 mg PO DAILY #2 tablet <Henri Nick - Last Filed: 10/04/16 17:44> - Assessment and plan (1) Decompensated COPD with exacerbation (chronic obstructive pulmonary disease) Current Visit: Yes Status: Acute (2) Elevated troponin I measurement Current Visit: Yes Status: Acute (3) CAD (coronary artery disease) Current Visit: Yes Status: Chronic Qualifiers: Coronary Disease-Associated Artery/Lesion type: [place] artery [place] vs. transplanted heart: [place] heart Associated angina: angina presence unspecified Qualified Code(s): I25.10 - Atherosclerotic heart disease of [place] coronary artery without angina pectoris (4) Diabetes mellitus type 2 in obese Current Visit: Yes Status: Chronic (5) Chronic kidney disease, stage 3 Current Visit: Yes Status: Chronic - Constitutional Vitals: Temp Pulse Resp BP Pulse Ox 97.6 F 56 18 184/94 94 L 10/04/16 16:36 10/04/16 16:36 10/04/16 16:45 10/04/16 16:36 10/04/16 16:45 Internal Medicine: Result - Labs CBC & Chem 7: 10/04/16 05:40 10/04/16 05:40 Labs: Short CBC 10/04/16 Range/Units 05:40 WBC 10.7 (4.3-11.1) K/mcL Hgb 10.4 L (11.5-15.4) g/dL Hct 31.6 L (35.3-44.9) % Plt Count 289 (140-400) K/mcL Neutrophils # 9.2 H (1.6-8.9) K/mcL BMP 10/04/16 05:40 Sodium 138 Potassium 3.3 L Chloride 103 Carbon Dioxide 23 BUN 15 Creatinine 0.86 Glucose 190 H Calcium 9.9 Liver Function 10/04/16 Range/Units 05:40 Total Bilirubin 0.8 (0.2-1.2) mg/dL AST 10 (5-34) Units/L ALT 7 (0-55) Units/L Alkaline Phosphatase 63 (38-126) Units/L Albumin 1.9 L (3.5-5.0) g/dL - ABG Interpretation ABG results: ABG ABG pH 7.47 pH Units (7.32-7.45) H 10/04/16 10:39 ABG pCO2 37 mmHg (35-45) 10/04/16 10:39 ABG pO2 52 mmHg (85-104) L 10/04/16 10:39 ABG O2 Saturation 89 % (95-98) L 10/04/16 10:39 PT/INR, D-dimer PT 13.5 Seconds (9.4-12.1) H 09/29/16 04:34 - Attending Attestation I examined this patient and my medical decision-making was reviewed with the SOCKET PULLER/PA/Advanced Practice Nurse/Resident Physician. I agree with the documented findings, disposition and treatment plan as described except to the extent set forth below. noted that patient's blood pressure elevated. not symptomatic but not good choice to get home with elevated blood pressure. will add lisinopril and monitor.
[2016-10-04] MEDS: FLUoxetine 20 MG CAPSULE PO SCH (19:44)
[2016-10-04] MEDS: Metoprolol XL (24 HR) Succ 25 MG TAB.ER.24H PO SCH (19:52)
[2016-10-04] MEDS: ALPRAZolam 0.25 MG TABLET PO SCH (20:51)
[2016-10-04] MEDS: Fenofibrate 54 MG TABLET PO SCH (20:52)
[2016-10-04] MEDS: Mag Hydrox/Al Hydrox/Simeth 30 ML UDC PO PRN (20:55)
[2016-10-04] MEDS: Melatonin 3 MG TABLET PO SCH (20:55)
[2016-10-04] MEDS: *HR* Metoprolol 5 MG/5 ML VIAL IVP PRN (21:05)
[2016-10-05] MEDS: *HR* Morphine 2 MG/ML SYRINGE IVP PRN ×3 (00:11→06:30)
[2016-10-05] MEDS: Bisacodyl 10 MG RECTAL SUPPOSITORY RC PRN (01:05)
[2016-10-05] MEDS: Ipratropium/Albuterol Neb 3 ML IH SCH ×4 (05:04→22:39)
[2016-10-05] MEDS: *HR* Heparin 5,000 UNIT/ML VIAL SQ SCH ×2 (06:29→18:00)
[2016-10-05] MEDS: Pantoprazole 40 MG VIAL IVP SCH (06:29)
[2016-10-05] MEDS: *HR* Metoprolol 5 MG/5 ML VIAL IVP PRN (06:30)
[2016-10-05 06:35] LABS: Hematocrit 34.4 % (35.3-44.9); Hemoglobin 11.4 g/dL (11.5-15.4); Mean Corpuscular HGB Conc 33.1 g/dL (31.6-35.5); Mean Corpuscular Hemoglobin 27.2 pg (28.0-33.3); Mean Corpuscular Volume 82.1 fL (83.0-100.0); Mean Platelet Volume 10.3 fL (9.4-12.4); Platelet Count 338 K/mcL (140-400); Red Blood Count 4.19 M/mcL (3.82-4.97)
[2016-10-05 06:47] LABS: BUN/Creatinine Ratio 24 (6-26); Blood Urea Nitrogen 19 mg/dL (7-20); Carbon Dioxide 23 mEq/L (19-29); Chloride 105 mEq/L (98-109); Glucose 122 mg/dL (70-99); Osmolality,Calculated 292 (280-300); Potassium 2.8 mEq/L (3.5-4.5); Sodium 139 mEq/L (136-145); eGFR For African Americans > 60 (> 60); eGFR For Non-African Americans > 60 (> 60)
[2016-10-05 06:50] LABS: Lymphocytes # 1.3 K/mcL (0.6-4.6); Monocytes # 0.3 K/mcL (0.0-1.3); Neutrophils # 9.1 K/mcL (1.6-8.9); Platelet Estimate Normal (Normal)
--- NOTE | 2016-10-05 08:07 | Internal Med Progress Note ---
<Ivan Bonilla Leonard - Last Filed: 10/05/16 11:50> Date of Encounter: 10/05/16 Time of Encounter: 08:06 - Assessment and plan (1) Decompensated COPD with exacerbation (chronic obstructive pulmonary disease) Current Visit: Yes Status: Acute Assessment and plan: Mrs. Stein was admitted with COPD exacerbation requiring increase in oxygen demand on 10/02/2016 to 4 liters NC. CXR on 10/02/2016 demonstrated diffuse pulmonary edema. IV fluids discontinued and 40mg IV Lasix once given. Patient is stable 10/05/2016: Ms. Stein is maintaining oxygen saturations >93% on 2 Liters oxygen , no crackles, wheeze or rales upon auscultation. non-labored respiratory effort. No sputum production. Plan: -Duonebs PRN - Continue PRN albuterol nebulizer. - Start symbacort - Discontinue prednisone 40 mg by mouth daily - Stop Levaquin today as she has completed her last dose. (2) Elevated troponin I measurement Current Visit: Yes Status: Acute Assessment and plan: Suspected demand ischemia. Patient was seen by cardiology, who have now signed off. (3) CAD (coronary artery disease) Current Visit: Yes Status: Chronic Assessment and plan: Patient has known coronary artery disease. History of left heart catheter April 2016 with single-vessel EVERARDO in the RCA. -Continue simvastatin 40 mg by mouth at bedtime - Continue beta jessica, Plavix, aspirin Qualifiers: Coronary Disease-Associated Artery/Lesion type: [place] artery [place] vs. transplanted heart: [place] heart Associated angina: angina presence unspecified Qualified Code(s): I25.10 - Atherosclerotic heart disease of [place] coronary artery without angina pectoris (4) Chronic kidney disease, stage 3 Current Visit: Yes Status: Chronic Assessment and plan: KEISHA resolved. IV fluids held on 10/02/2016 Plan: Renal function stable. (5) Diabetes mellitus type 2 in obese Current Visit: Yes Status: Chronic Assessment and plan: Patient is a known type II diabetic who is on glipizide and Tradjenta at home , hemoglobin A1c on 09/29/2016 was 5.6. Glucoses stable this morning. Plan: -Continue high dose insulin sliding scale. - Plan to discontinue glipizide and start metformin at time of discharge. Patient is a 61-year-old type II diabetic with a hemoglobin A1c of 5.6. (6) Hypothyroidism Current Visit: Yes Status: Acute Assessment and plan: Known history of hypothyroidism with a TSH of 0.123. Plan: - Continue home dose of levothyroxine at 125mcg po daily Qualifiers: Qualified Code(s): E03.9 - Hypothyroidism, unspecified (7) HTN (hypertension) Current Visit: Yes Status: Acute Assessment and plan: Patient has Known history of hypertension with current elevated blood pressures. 10/05/2016: Blood pressures were elevated to 189 SBP, She had received Labatalol and Hydralizine without improvement. This morning BP was rechecked with another cuff and were slightly improved but continued to be elevated. Plan: - Increase Norvasc to 10mg PO daily - Continue Toprol XL 25 mg by mouth scheduled - Increase lisinopril 20 mg by mouth (10/05/2016) Qualifiers: Qualified Code(s): I10 - Essential (primary) hypertension (8) Epigastric pain Current Visit: Yes Status: Acute Assessment and plan: Patient had epigastric pain with acute onset during inpatient stay. Right upper quadrant ultrasound did not demonstrate any cholelithiasis or gallbladder wall thickening. Initial Lipase 422, CT of the abdomen demonstrates fatty stranding adjacent to the pancreatic head and duodenal sweep with concerns for pancreatitis but was also mentioned seen in peptic ulcer disease She has been on steroids and anticoagulation with a history of GERD there is concern for possible gastritis versus gastric or duodenal ulceration. Patient also complains of trouble with swallowing. 10/04/2016 patient is without epigastric pain and stable. 10/05/2016 Recurrence of epigastric discomfort, Plan to repeat Lipase with recent episode of pancreatitis. EGD recently demonstrated some gastritis. Differential includes Constipation, Pancreatitis. She is currently receiving treatment for her gastritis. Potassium was 2.8 and Magnesium 1.5 Plan: - Monitor patient's symptoms - Continuing treatment for her constipation. - Replaced potassium 40meq PO - Replaced Magnesium 2gm IVPB (9) Pancreatitis Current Visit: Yes Status: Acute Assessment and plan: Patient epigastric symptoms improving. Lipase collected with a high of 422, CT of the abdomen demonstrates fatty stranding adjacent to the pancreatic head and duodenal sweep with concerns for pancreatitis but was also mentioned seen in peptic ulcer disease. RUQ did not demonstrate any cholilethiasis. Medications reviewed. Renal function is stable. Electrolytes are stable, Vitals stable. 10/02/2016: Patient tolerating clear liquid diet. No worsening of abdominal pain. Lipase trending down. 10/03/2016: Abdominal pain resolved. Patient tolerated soft diet last evening. 10/04/2016: No abdominal pain, patient is tolerating diet. 10/05/2016: recurrence of epigastric discomfort. Concern for re-flare of pancreatitis. Plan: - repeat Lipase today with recurrence of epigastric discomfort. Qualifiers: Chronicity: acute Pancreatitis type: unspecified pancreatitis type Acute pancreatitis complication: no infection or necrosis Qualified Code(s): K85.90 - Acute pancreatitis without necrosis or infection, unspecified (10) Hypokalemia Current Visit: Yes Status: Acute Assessment and plan: Low potassium this morning after replacement yesterday. Patient given 40meq potassium by mouth today. She is currently not receiving Lasix, no vomiting. Plan: - 40meq Potassium this morning and 40meq tonight. - Recheck potassium in a.m. - Subjective Interval history: Mrs. Stein has been seen and evaluated patient bedside this morning. She is alert awake interactive in no acute distress. She had epigastric pain last evening and has continued into this morning. She denies any radiation of pain and says that it has stayed localized to her upper abdomen. She denies any nausea or vomiting last evening. She has been constipated for several days with poor response stool softeners and had a rectal suppository this morning with minimal production. She says the small bowel movement she has had this morning did not have bright red blood or melena. - Constitutional Vitals: Temp Pulse Resp BP Pulse Ox 97.6 F 50 18 183/86 97 10/05/16 04:00 10/05/16 04:00 10/05/16 04:00 10/05/16 04:00 10/05/16 04:00 General appearance: Present: cooperative, A&O X 3, morbidly obese, obese - Head Head exam: Present: atraumatic, normocephalic - Eye Eye exam: Present: PERRL, conjuntiva pink, sclera anicteric Pupils: Present: PERRL - Neck Neck exam general surgery: Present: supple, trachea midline. Absent: lymphadenopathy - Respiratory Respiratory exam: Present: CTAB. Absent: accessory muscle use, rales, rhonchi, wheezes - Cardiovascular Cardiovascular exam: Present: RRR, +S1, +S2. Absent: diastolic murmur, gallop, rubs, systolic murmur - GI/Abdominal Additional comments: Obese abdomen, soft with tenderness to palpation to the epigastric region. No signs of erythema or edema. Small eccymosis sites from heparin injections. + bowel sounds. - Extremities Exam Extremities exam: Present: warm, radial pulses palpable and symetrical. Absent : calf tenderness, cyanotic, pedal edema - Neurological Exam Neurological exam: Present: alert, no focal deficits. Absent: facial droop - Psychiatric Psychiatric exam: Present: normal affect, normal mood - Skin Skin exam: Present: warm Internal Medicine: Result - Labs CBC & Chem 7: 10/05/16 06:18 10/05/16 06:18 Labs: Short CBC 10/05/16 Range/Units 06:18 WBC 10.7 (4.3-11.1) K/mcL Hgb 11.4 L (11.5-15.4) g/dL Hct 34.4 L (35.3-44.9) % Plt Count 338 (140-400) K/mcL Neutrophils # 9.1 H (1.6-8.9) K/mcL BMP 10/05/16 06:18 Sodium 139 Potassium 2.8 L Chloride 105 Carbon Dioxide 23 BUN 19 Creatinine 0.79 Glucose 122 H Calcium 10.0 - ABG Interpretation ABG results: ABG ABG pH 7.47 pH Units (7.32-7.45) H 10/04/16 10:39 ABG pCO2 37 mmHg (35-45) 10/04/16 10:39 ABG pO2 52 mmHg (85-104) L 10/04/16 10:39 ABG O2 Saturation 89 % (95-98) L 10/04/16 10:39 PT/INR, D-dimer PT 13.5 Seconds (9.4-12.1) H 09/29/16 04:34 Consult Discharge Plan - Plan Instructions: Heart Failure (DC), Chest Pain (DC), Acute Respiratory Distress Syndrome (DC) Additional Instructions: Take medications as prescribed. Follow up with PCP in 3-5 days for re-evaluation Wear oxygen as prescribed. Referrals: Amy Ocampo, DIGITAL [employer] RAY SERVICE ENGINEER [Primary Care Provider] - Prescriptions: Albuterol Sulfate [Proair Hfa] 1 puff IH Q4HR PRN #1 inh PRN Reason: Shortness Of Breath/Wheezing Budesonide/Formoterol 160/4.5 [Symbicort 160/4.5] 1 puff IH DAILY #1 inhaler Levofloxacin [Levaquin] 750 mg PO ONCE #1 tablet Nicotine Patch [Nicoderm] 21 mg TD DAILY #30 patch.td24 Pantoprazole [Protonix] 40 mg IVP DAILY #14 vial PredniSONE 40 mg PO DAILY #2 tablet <Henri Nick P - Last Filed: 10/05/16 16:19> - Assessment and plan (1) Decompensated COPD with exacerbation (chronic obstructive pulmonary disease) Current Visit: Yes Status: Acute (2) Elevated troponin I measurement Current Visit: Yes Status: Acute (3) CAD (coronary artery disease) Current Visit: Yes Status: Chronic Qualifiers: Coronary Disease-Associated Artery/Lesion type: [place] artery [place] vs. transplanted heart: [place] heart Associated angina: angina presence unspecified Qualified Code(s): I25.10 - Atherosclerotic heart disease of [place] coronary artery without angina pectoris (4) Diabetes mellitus type 2 in obese Current Visit: Yes Status: Chronic (5) Chronic kidney disease, stage 3 Current Visit: Yes Status: Chronic - Constitutional Vitals: Temp Pulse Resp BP Pulse Ox 97.6 F 54 18 172/76 95 10/05/16 12:05 10/05/16 12:05 10/05/16 15:19 10/05/16 12:05 10/05/16 15:19 Internal Medicine: Result - Labs CBC & Chem 7: 10/05/16 06:18 10/05/16 06:18 Labs: Short CBC 10/05/16 Range/Units 06:18 WBC 10.7 (4.3-11.1) K/mcL Hgb 11.4 L (11.5-15.4) g/dL Hct 34.4 L (35.3-44.9) % Plt Count 338 (140-400) K/mcL Neutrophils # 9.1 H (1.6-8.9) K/mcL BMP 10/05/16 06:18 Sodium 139 Potassium 2.8 L Chloride 105 Carbon Dioxide 23 BUN 19 Creatinine 0.79 Glucose 122 H Calcium 10.0 - ABG Interpretation ABG results: ABG ABG pH 7.47 pH Units (7.32-7.45) H 10/04/16 10:39 ABG pCO2 37 mmHg (35-45) 10/04/16 10:39 ABG pO2 52 mmHg (85-104) L 10/04/16 10:39 ABG O2 Saturation 89 % (95-98) L 10/04/16 10:39 PT/INR, D-dimer PT 13.5 Seconds (9.4-12.1) H 09/29/16 04:34 - Attending Attestation I examined this patient and my medical decision-making was reviewed with the BLURB WRITER/PA/Advanced Practice Nurse/Resident Physician. I agree with the documented findings, disposition and treatment plan as described except to the extent set forth below.
[2016-10-05 08:46] LABS: Lipase 94 Units/L (8-78)
[2016-10-05 09:08] LABS: Magnesium 1.5 mg/dL (1.6-2.6)
[2016-10-05] MEDS ORDERED: Magnesium Sulfate 2 GM in D5% in Water 100 ML IVPB ONE (09:38)
[2016-10-05] MEDS: Levofloxacin 750 MG/150 ML 750 MG/150 ML BAG IVPB SCH (10:32)
[2016-10-05] MEDS: Gabapentin 300 MG CAPSULE PO SCH ×3 (10:33→20:09)
[2016-10-05] MEDS: predniSONE 20 MG TABLET PO SCH (10:33)
[2016-10-05] MEDS: Nicotine 21 MG PATCH.TD24 TD SCH (10:34)
[2016-10-05] MEDS: Aspirin Enteric Coated 81 MG Tablet PO SCH (10:34)
[2016-10-05] MEDS: amLODIPine 5 MG TABLET PO SCH (10:34)
[2016-10-05] MEDS: Insulin LISPRO 300 UNITS/3 ML VIAL SQ SCH ×4 (10:35→22:35)
[2016-10-05] MEDS: Nystatin POWDER 30 GM BOTTLE TP SCH ×3 (10:36→20:11)
[2016-10-05] MEDS: Lisinopril 20 MG TABLET PO SCH (10:53)
[2016-10-05] MEDS: FLUoxetine 20 MG CAPSULE PO SCH (17:56)
[2016-10-05] MEDS: Metoprolol XL (24 HR) Succ 25 MG TAB.ER.24H PO SCH (17:56)
[2016-10-05] MEDS: Fenofibrate 54 MG TABLET PO SCH (20:09)
[2016-10-05] MEDS: ALPRAZolam 0.25 MG TABLET PO SCH (20:10)
[2016-10-05] MEDS: Melatonin 3 MG TABLET PO SCH (20:10)
[2016-10-06] MEDS: Ipratropium/Albuterol Neb 3 ML IH SCH ×4 (04:46→23:27)
[2016-10-06 05:40] LABS: Hematocrit 36.1 % (35.3-44.9); Hemoglobin 11.6 g/dL (11.5-15.4); Mean Corpuscular HGB Conc 32.1 g/dL (31.6-35.5); Mean Corpuscular Hemoglobin 26.7 pg (28.0-33.3); Mean Corpuscular Volume 83.2 fL (83.0-100.0); Mean Platelet Volume 10.3 fL (9.4-12.4); Platelet Count 366 K/mcL (140-400); Red Blood Count 4.34 M/mcL (3.82-4.97); Red Cell Distribution Width 14.2 % (11.5-14.5)
[2016-10-06 05:56] LABS: BUN/Creatinine Ratio 27 (6-26); Blood Urea Nitrogen 22 mg/dL (7-20); Calcium 9.8 mg/dL (8.6-10.8); Carbon Dioxide 24 mEq/L (19-29); Chloride 104 mEq/L (98-109); Glucose 168 mg/dL (70-99); Magnesium 1.9 mg/dL (1.6-2.6); Osmolality,Calculated 291 (280-300); Phosphorous 2.5 mg/dL (2.3-4.7); Sodium 137 mEq/L (136-145); eGFR For African Americans > 60 (> 60); eGFR For Non-African Americans > 60 (> 60)
[2016-10-06 05:58] LABS: Potassium 4.1 mEq/L (3.5-4.5)
[2016-10-06] MEDS: *HR* Heparin 5,000 UNIT/ML VIAL SQ SCH ×2 (06:01→21:41)
[2016-10-06] MEDS: *HR* Metoprolol 5 MG/5 ML VIAL IVP PRN (06:02)
[2016-10-06 06:31] LABS: Large Platelets Present (Not Present); Lymphocytes # 1.9 K/mcL (0.6-4.6); Monocytes # 1.2 K/mcL (0.0-1.3); Neutrophils # 5.6 K/mcL (1.6-8.9); Platelet Estimate Normal (Normal); Reactive Lymphocytes Present (Not Present)
[2016-10-06] MEDS: amLODIPine 5 MG TABLET PO SCH (09:08)
[2016-10-06] MEDS: Lisinopril 20 MG TABLET PO SCH (09:09)
[2016-10-06] MEDS: Gabapentin 300 MG CAPSULE PO SCH ×3 (09:09→21:43)
[2016-10-06] MEDS: Aspirin Enteric Coated 81 MG Tablet PO SCH (09:09)
[2016-10-06] MEDS: predniSONE 20 MG TABLET PO SCH (09:09)
[2016-10-06] MEDS: Nicotine 21 MG PATCH.TD24 TD SCH (09:09)
[2016-10-06] MEDS: Insulin LISPRO 300 UNITS/3 ML VIAL SQ SCH ×4 (09:10→21:43)
[2016-10-06] MEDS: Nystatin POWDER 30 GM BOTTLE TP SCH ×3 (09:16→21:42)
[2016-10-06] MEDS ORDERED: Lisinopril 20 MG TABLET PO ONE (14:17)
--- NOTE | 2016-10-06 16:00 | Internal Med Progress Note ---
Date of Encounter: 10/06/16 Time of Encounter: 15:58 - Assessment and plan (1) Decompensated COPD with exacerbation (chronic obstructive pulmonary disease) Current Visit: Yes Status: Acute Assessment and plan: Mrs. Stein was admitted with COPD exacerbation requiring increase in oxygen demand on 10/02/2016 to 4 liters NC. CXR on 10/02/2016 demonstrated diffuse pulmonary edema. IV fluids discontinued and 40mg IV Lasix once given. Patient is stable 10/05/2016: Ms. Stein is maintaining oxygen saturations >93% on 2 Liters oxygen , no crackles, wheeze or rales upon auscultation. non-labored respiratory effort. No sputum production. Plan: -Duonebs PRN - Continue PRN albuterol nebulizer. - Start symbacort - Discontinue prednisone 40 mg by mouth daily - Stop Levaquin today as she has completed her last dose. 10/06/2106 Noted that patient's blood pressure is still elevated. Lisinopril 40 mg every day. Discussed with the family regarding plan. His blood pressure is between 140 to 160s systolic tomorrow then she can go home. All this about discussed with the patient and she verbalized understanding (2) Elevated troponin I measurement Current Visit: Yes Status: Acute Assessment and plan: Suspected demand ischemia. Patient was seen by cardiology, who have now signed off. (3) CAD (coronary artery disease) Current Visit: Yes Status: Chronic Assessment and plan: Patient has known coronary artery disease. History of left heart catheter April 2016 with single-vessel EVERARDO in the RCA. -Continue simvastatin 40 mg by mouth at bedtime - Continue beta jessica, Plavix, aspirin Qualifiers: Coronary Disease-Associated Artery/Lesion type: [place] artery [place] vs. transplanted heart: [place] heart Associated angina: angina presence unspecified Qualified Code(s): I25.10 - Atherosclerotic heart disease of [place] coronary artery without angina pectoris (4) Diabetes mellitus type 2 in obese Current Visit: Yes Status: Chronic Assessment and plan: Patient is a known type II diabetic who is on glipizide and Tradjenta at home , hemoglobin A1c on 09/29/2016 was 5.6. Glucoses stable this morning. Plan: -Continue high dose insulin sliding scale. - Plan to discontinue glipizide and start metformin at time of discharge. Patient is a 61-year-old type II diabetic with a hemoglobin A1c of 5.6. (5) Chronic kidney disease, stage 3 Current Visit: Yes Status: Chronic Assessment and plan: KEISHA resolved. IV fluids held on 10/02/2016 Plan: Renal function stable. - Subjective Interval history: seen and examined. denies chest pain. has SOB and occasional cough. noted that family members at bedside. - Constitutional Vitals: Temp Pulse Resp BP Pulse Ox 97.7 F 56 15 137/89 96 10/06/16 15:47 10/06/16 15:47 10/06/16 15:47 10/06/16 15:47 10/06/16 15:47 General appearance: Present: cooperative, A&O X 3, morbidly obese, obese - Head Head exam: Present: atraumatic, normocephalic - Eye Eye exam: Present: PERRL, conjuntiva pink, sclera anicteric Pupils: Present: PERRL - Neck Neck exam general surgery: Present: supple, trachea midline. Absent: lymphadenopathy - Respiratory Respiratory exam: Present: CTAB. Absent: accessory muscle use, rales, rhonchi, wheezes - Cardiovascular Cardiovascular exam: Present: RRR, +S1, +S2. Absent: diastolic murmur, gallop, rubs, systolic murmur - GI/Abdominal GI/Abdominal exam: Present: normal bowel sounds, soft, no peritoneal signs. Absent: distended, tenderness - Extremities Exam Extremities exam: Present: warm, radial pulses palpable and symetrical. Absent : calf tenderness, cyanotic, pedal edema - Neurological Exam Neurological exam: Present: CN II-XII intact, oriented X3, no focal deficits. Absent: pronater drift, facial droop, speech deficit - Skin Skin exam: Present: dry, intact Internal Medicine: Result - Labs CBC & Chem 7: 10/06/16 04:47 10/06/16 04:47 Labs: Short CBC 10/06/16 Range/Units 04:47 WBC 8.7 (4.3-11.1) K/mcL Hgb 11.6 (11.5-15.4) g/dL Hct 36.1 (35.3-44.9) % Plt Count 366 (140-400) K/mcL Neutrophils # 5.6 (1.6-8.9) K/mcL BMP 10/06/16 04:47 Sodium 137 Potassium 4.1 D Chloride 104 Carbon Dioxide 24 BUN 22 H Creatinine 0.83 Glucose 168 H Calcium 9.8 - ABG Interpretation ABG results: ABG ABG pH 7.47 pH Units (7.32-7.45) H 10/04/16 10:39 ABG pCO2 37 mmHg (35-45) 10/04/16 10:39 ABG pO2 52 mmHg (85-104) L 10/04/16 10:39 ABG O2 Saturation 89 % (95-98) L 10/04/16 10:39 PT/INR, D-dimer PT 13.5 Seconds (9.4-12.1) H 09/29/16 04:34 Consult Discharge Plan - Plan Instructions: Heart Failure (DC), Chest Pain (DC), Acute Respiratory Distress Syndrome (DC) Additional Instructions: Take medications as prescribed. Follow up with PCP in 3-5 days for re-evaluation Wear oxygen as prescribed. Referrals: Amy Ocampo, HAT COPYIST [Primary Care Provider] - Prescriptions: Albuterol Sulfate [Proair Hfa] 1 puff IH Q4HR PRN #1 inh PRN Reason: Shortness Of Breath/Wheezing Budesonide/Formoterol 160/4.5 [Symbicort 160/4.5] 1 puff IH DAILY #1 inhaler Levofloxacin [Levaquin] 750 mg PO ONCE #1 tablet Nicotine Patch [Nicoderm] 21 mg TD DAILY #30 patch.td24 Pantoprazole [Protonix] 40 mg IVP DAILY #14 vial PredniSONE 40 mg PO DAILY #2 tablet
[2016-10-06] MEDS: Metoprolol XL (24 HR) Succ 25 MG TAB.ER.24H PO SCH (17:11)
[2016-10-06] MEDS: FLUoxetine 20 MG CAPSULE PO SCH (17:12)
[2016-10-06] MEDS: ALPRAZolam 0.25 MG TABLET PO SCH (21:42)
[2016-10-06] MEDS: Fenofibrate 54 MG TABLET PO SCH (21:42)
[2016-10-06] MEDS: Melatonin 3 MG TABLET PO SCH (21:43)
[2016-10-06] MEDS: *HR* Morphine 2 MG/ML SYRINGE IVP PRN (21:56)
[2016-10-07] MEDS: Ipratropium/Albuterol Neb 3 ML IH SCH ×2 (05:47→11:13)
[2016-10-07] MEDS: *HR* Heparin 5,000 UNIT/ML VIAL SQ SCH (06:22)
[2016-10-07] MEDS: amLODIPine 5 MG TABLET PO SCH (08:27)
[2016-10-07] MEDS: predniSONE 20 MG TABLET PO SCH (08:27)
[2016-10-07] MEDS: Gabapentin 300 MG CAPSULE PO SCH (08:27)
[2016-10-07] MEDS: Aspirin Enteric Coated 81 MG Tablet PO SCH (08:28)
[2016-10-07] MEDS: Nystatin POWDER 30 GM BOTTLE TP SCH (08:28)
[2016-10-07] MEDS: Nicotine 21 MG PATCH.TD24 TD SCH (08:28)
[2016-10-07] MEDS: Insulin LISPRO 300 UNITS/3 ML VIAL SQ SCH ×2 (08:33→13:07)
[2016-10-07] MEDS ORDERED: levoFLOXacin 750 MG TABLET PO SCH (09:00)
[2016-10-07] MEDS ORDERED: Lisinopril 20 MG TABLET PO SCH (09:00)
--- NOTE | 2016-10-07 12:06 | Discharge Summary ---
<ShortyDawsonpantera Raines - Last Filed: 10/07/16 12:02> Date of Encounter: 10/07/16 Time of Encounter: 11:00 - Discharge Diagnosis (1) Decompensated COPD with exacerbation (chronic obstructive pulmonary disease) Priority: Primary Status: Acute Comments: Mrs. Stein was admitted with COPD exacerbation requiring increase in oxygen demand on 10/02/2016 to 4 liters NC. CXR on 10/02/2016 demonstrated diffuse pulmonary edema. IV fluids discontinued and 40mg IV Lasix once given. Patient is stable 10/05/2016: Ms. Stein is maintaining oxygen saturations >93% on 2 Liters oxygen , no crackles, wheeze or rales upon auscultation. non-labored respiratory effort. No sputum production. Plan: -Duonebs PRN - Continue PRN albuterol nebulizer. - Start symbacort - Discontinue prednisone 40 mg by mouth daily - Stop Levaquin today as she has completed her last dose. 10/06/2106 Noted that patient's blood pressure is still elevated. Lisinopril 40 mg every day. Discussed with the family regarding plan. His blood pressure is between 140 to 160s systolic tomorrow then she can go home. All this about discussed with the patient and she verbalized understanding 10/07/16 Increase dose of lisinopril Blood pressure down to 156 systolic (2) Elevated troponin I measurement Priority: Secondary Status: Acute Comments: Likely secondary to demand ischemia Evaluated by cardiology earlier in the hospital course (3) CAD (coronary artery disease) Priority: Secondary Status: Chronic Comments: Patient has known coronary artery disease. History of left heart catheter April 2016 with single-vessel EVERARDO in the RCA. 10/06/16 -Continue simvastatin 40 mg by mouth at bedtime - Continue beta jessica, Plavix, aspirin 10/07/16 Stable Continue statin Continue beta jessica, Plavix, aspirin Qualifiers: Coronary Disease-Associated Artery/Lesion type: [place] artery [place] vs. transplanted heart: [place] heart Associated angina: angina presence unspecified Qualified Code(s): I25.10 - Atherosclerotic heart disease of [place] coronary artery without angina pectoris (4) Diabetes mellitus type 2 in obese Priority: Secondary Status: Chronic Comments: Patient is a known type II diabetic who is on glipizide and Tradjenta at home, hemoglobin A1c on 09/29/2016 was 5.6. Glucoses stable this morning. Plan: 10/06/16 -Continue high dose insulin sliding scale. - Plan to discontinue glipizide and start metformin at time of discharge. Patient is a 61-year-old type II diabetic with a hemoglobin A1c of 5.6. 10/07/16 Blood glucose levels have been stable during hospitalization Glipizide and Tradjenta at home We will change glipizide to metformin (5) Chronic kidney disease, stage 3 Priority: Secondary Status: Chronic Comments: Stable Creatinine 0.83 GFR >60 - Discharge Medications Prescriptions: Albuterol Sulfate [Proair Hfa] 1 puff IH Q4HR PRN #1 inh PRN Reason: Shortness Of Breath/Wheezing OxyCODONE/APAP 5/325 [Percocet 5/325 MG] 1 tab PO Q6HR PRN #30 tablet PRN Reason: Pain Alprazolam [Xanax 0.25 MG Tablet] 0.25 mg PO TID PRN #21 tablet PRN Reason: Anxiety Budesonide/Formoterol 160/4.5 [Symbicort 160/4.5] 1 puff IH DAILY #1 inhaler Lisinopril [Zestril] 40 mg PO DAILY #30 tablet Metformin HCl [Metformin HCl ER] 1,000 mg PO DAILY #30 [id number] Nicotine Patch [Nicoderm] 21 mg TD DAILY #30 patch.td24 Pantoprazole [Protonix] 40 mg IVP DAILY #14 vial Pantoprazole Sodium 40 mg PO BID #14 tablet. PredniSONE 40 mg PO DAILY #2 tablet Home Medications: Amlodipine Besylate 10 mg PO DAILY 12/19/15 [History] Ergocalciferol (VITAMIN D2) [Vitamin D2 (50,000 UNIT)] 50,000 unit PO PARK [History] FLUoxetine HCl [Prozac] 40 mg PO QPM 12/19/15 [History] Gabapentin [Neurontin] 300 mg PO TID 12/19/15 [History] Levothyroxine [Synthroid] 125 mcg PO DAILY 12/19/15 [History] Metoprolol XL (24 HR) Succ [Toprol Xl] 25 mg PO QPM 12/19/15 [History] Nitroglycerin 0.4 mg SL Q5MIN PRN 12/19/15 [History] Simvastatin [Zocor] 40 mg PO HS 12/19/15 [History] Cholecalciferol (Vitamin D3) [Vitamin D3] 2,000 unit PO DAILY 02/28/16 [History] Linagliptin [Tradjenta] 5 mg PO DAILY 02/28/16 [History] Aspirin Enteric Coated [Aspirin EC] 81 mg PO DAILY 03/21/16 [History] Clopidogrel [Plavix] 75 mg PO QPM 03/21/16 [History] Ranitidine HCl [Zantac] 300 mg PO DAILY 03/21/16 [History] Fenofibrate Nanocrystallized [Fenofibrate] 145 mg PO DAILY 09/29/16 [History] Albuterol Sulfate [Proair Hfa] 1 puff IH Q4HR PRN #1 inh 10/04/16 [Rx] Budesonide/Formoterol 160/4.5 [Symbicort 160/4.5] 1 puff IH DAILY #1 inhaler 06/10 [Rx] Nicotine Patch [Nicoderm] 21 mg TD DAILY #30 patch.td24 10/04/16 [Rx] Pantoprazole [Protonix] 40 mg IVP DAILY #14 vial 10/04/16 [Rx] PredniSONE 40 mg PO DAILY #2 tablet 10/04/16 [Rx] Alprazolam [Xanax 0.25 MG Tablet] 0.25 mg PO TID PRN #21 tablet 10/07/16 [Rx] Lisinopril [Zestril] 40 mg PO DAILY #30 tablet 10/07/16 [Rx] Metformin HCl [Metformin HCl ER] 1,000 mg PO DAILY #30 [id number] 10/07/16 [Rx] OxyCODONE/APAP 5/325 [Percocet 5/325 MG] 1 tab PO Q6HR PRN #30 tablet 10/07/16 [ Rx] Pantoprazole Sodium 40 mg PO BID #14 tablet.dr 10/07/16 [Rx] Allergies/Adverse Reactions: Allergies No Known Allergies Allergy (Verified 04/24/16 08:30) Date of admission: 09/29/16 11:06 Primary care physician: Amy Ocampo CNP Consults: 09/28/16 20:45 Consult to Cardiac Rehabilitation-Phase1 [CONS] Routine Comment: Reason for Consult: AMI Call Completed: Yes Consult to Nurse Navigator [CONS] Routine Comment: Consult to Nurse Navigator [CONS] Routine Comment: 09/29/16 08:00 Consult to Cardiology [CONS] Routine Comment: Consulting Provider: Cardiology Reyna Reason for Consult: ACS type II nstemi in counseling and COPD exacerbation in patient with long-standing history of CAD/PTCA/stents/AMI. Please evaluate and advise. Time Notified: 20:57 Call Completed: Yes 09/30/16 16:42 Consult to Speech Therapy [CONS] Routine Comment: Evaluate, develop and implement POC Reason for Consult: PATIENT STATES SHE HAS HAD TROUBLE SWALLOWING FOR A LONG TIME Call Completed: No 09/30/16 17:09 Consult to Surgery [CONS] Routine Consulting Provider: Surgery Reyna Surgical Reason for Consult: EGD, Discussed with Dr. Schafer Call Completed: Yes 10/01/16 16:56 Consult to Ice Handler [CONS] Routine Reason for SW Consult: Poss new home O2 at discharge. 10/02/16 14:25 Consult to Gastroenterology [CONS] Routine Consulting Provider: Gastroenterology Reyna Reason for Consult: Pancreatitis Call Completed: Yes - Patient Status Disposition: Home, Self-Care Condition: Good - Discharge Instructions Instructions: Lisinopril (By mouth), Oxycodone/Acetaminophen (By mouth), Alprazolam (By mouth), Albuterol (By breathing), Prednisone (By mouth), Nicotine (Absorbed through the skin), Metformin (By mouth), Pantoprazole (By mouth), Budesonide/Formoterol (By breathing), Heart Failure (DC), Chest Pain (DC ), Acute Respiratory Distress Syndrome (DC) Follow Up With: Amy Ocampo SHIFT BOSS [Primary Care Provider] - 10/15/16 1:00 pm Additional Instructions: Take medications as prescribed. Follow up with PCP in 3-5 days for re-evaluation Wear oxygen as prescribed. Wear at 2L per min continuous. - Diet and Activity Activity: increase activity as tolerated Diet: advance to your usual diet Hospital course: Ms. Stein is a 61 year old female - Time Spent with Patient Total time spent providing and/or coordinating discharge services: - Constitutional Vitals: Temp Pulse Resp BP Pulse Ox 97.9 F 50 16 177/87 98 10/07/16 08:12 10/07/16 08:12 10/07/16 08:12 10/07/16 08:12 10/07/16 08:12 General appearance: Present: cooperative, A&O X 3, morbidly obese, obese - Head Head exam: Present: atraumatic, normocephalic - Eye Eye exam: Present: normal appearance, PERRL, conjuntiva pink, sclera anicteric - Neck Neck exam general surgery: Present: normal inspection, supple, trachea midline - Respiratory Respiratory exam: Present: wheezes. Absent: rales, respiratory distress, rhonchi Additional comments: mild, diffuse wheezes - Cardiovascular Cardiovascular exam: Present: RRR, +S1, +S2. Absent: diastolic murmur, gallop, rubs, systolic murmur - GI/Abdominal GI/Abdominal exam: Present: normal bowel sounds, soft. Absent: guarding, tenderness - Extremities Exam Extremities exam: Present: warm, radial pulses palpable and symetrical. Absent : calf tenderness, pedal edema, tenderness - Neurological Exam Neurological exam: Present: CN II-XII intact, oriented X3, no focal deficits. Absent: pronater drift, facial droop, speech deficit - Skin Skin exam: Present: dry, intact <Park,Henri P - Last Filed: 10/07/16 18:07> - Discharge Diagnosis (1) Decompensated COPD with exacerbation (chronic obstructive pulmonary disease) Status: Acute (2) Elevated troponin I measurement Status: Acute (3) CAD (coronary artery disease) Status: Chronic Qualifiers: Coronary Disease-Associated Artery/Lesion type: [place] artery [place] vs. transplanted heart: [place] heart Associated angina: angina presence unspecified Qualified Code(s): I25.10 - Atherosclerotic heart disease of [place] coronary artery without angina pectoris (4) Diabetes mellitus type 2 in obese Status: Chronic (5) Chronic kidney disease, stage 3 Status: Chronic Date of admission: 09/29/16 11:06 Primary care physician: Amy Ocampo CNP Consults: 09/28/16 20:45 Consult to Cardiac Rehabilitation-Phase1 [CONS] Routine Comment: Reason for Consult: AMI Call Completed: Yes Consult to Nurse Navigator [CONS] Routine Comment: Consult to Nurse Navigator [CONS] Routine Comment: 09/29/16 08:00 Consult to Cardiology [CONS] Routine Comment: Consulting Provider: Cardiology Reyna Reason for Consult: ACS type II nstemi in counseling and COPD exacerbation in patient with long-standing history of CAD/PTCA/stents/AMI. Please evaluate and advise. Time Notified: 20:57 Call Completed: Yes 09/30/16 16:42 Consult to Speech Therapy [CONS] Routine Comment: Evaluate, develop and implement POC Reason for Consult: PATIENT STATES SHE HAS HAD TROUBLE SWALLOWING FOR A LONG TIME Call Completed: No 09/30/16 17:09 Consult to Surgery [CONS] Routine Consulting Provider: Surgery Reyna Surgical Reason for Consult: EGD, Discussed with Dr. Schafer Call Completed: Yes 10/01/16 16:56 Consult to Ice Handler [CONS] Routine Reason for SW Consult: Poss new home O2 at discharge. 10/02/16 14:25 Consult to Gastroenterology [CONS] Routine Consulting Provider: Gastroenterology [place] Reason for Consult: Pancreatitis Call Completed: Yes Hospital course: Ms. Stein is a 61 year old female - Time Spent with Patient Total time spent providing and/or coordinating discharge services: - Constitutional Vitals: Temp Pulse Resp BP Pulse Ox 97.9 F 64 16 150/76 97 10/07/16 12:14 10/07/16 12:14 10/07/16 12:14 10/07/16 12:14 10/07/16 12:14 - Attending Attestation I examined this patient and my medical decision-making was reviewed with the MICROMATIC HONE OPERATOR/PA/Advanced Practice Nurse/Resident Physician. I agree with the documented findings, disposition and treatment plan as described except to the extent set forth below.
[2016-10-07 12:18] VITALS: BP 150/76
== END 2016-10-07 14:31 | disposition home or self-care (01) | DRG 190 ==
LOC: 2NENU
PROVIDERS: ADMIT Internal Medicine; ATTEND Internal Medicine

== ENCOUNTER 2016-12-25 08:02 | Inpatient (IN) ==
[2016-12-25] MEDS ORDERED: Lidocaine -MPF 1% 2 ML VIAL ID ONE (08:31)
[2016-12-25] MEDS ORDERED: Vancomycin 1,750 MG in D5% in Water 500 ML IVPB ONE (08:31)
[2016-12-25] MEDS ORDERED: CeFAZolin Pre 2,000 MG/100 ML 2,000 MG/100 ML BAG IVPB ONE (08:31)
[2016-12-25] MEDS ORDERED: Albuterol 2.5 MG/3 ML NEBULIZER IH ONE (08:32)
[2016-12-25] MEDS ORDERED: Ringers Solution, Lactated 1,000 ML IVC SCH (08:45)
[2016-12-25] MEDS ORDERED: *HR* Labetalol 100 MG/20 ML MDV IVP PRN (08:58)
[2016-12-25] MEDS ORDERED: Famotidine 20 MG/2 ML VIAL IVP ONE (08:58)
[2016-12-25] MEDS ORDERED: *HR* Promethazine 25 MG/ML VIAL IVP PRN ×2 (08:58→15:53)
[2016-12-25] MEDS ORDERED: *HR* HYDROmorphone (PF) 1 MG/ML SYRINGE IVP PRN (08:58)
[2016-12-25] MEDS ORDERED: Acetaminophen IV 1,000 MG/100 ML INFUS..BTL IVPB ONE (08:59)
--- NOTE | 2016-12-25 09:03 | Anesthesia Evaluation PreOp ---
Date of Encounter: 12/25/16 Time of Encounter: 09:01 - Past History Planned Operation: Endograft Aortic Aneurysm Repair Cardiac History: CHF (last exacerbation 09/2015), HTN (maintained on Metoprolol, Norvasc), Hyperlipidemia (maintained on Zocor, Fenofibrate,), Cardiac Stent ( cardiac stent x 1 placed 06/2016, maintained on Plavix, ASA (last dose 12/25/16 @ 0630)), Other (PVDz - Fem-Fem Bypass 05/2017) Pulmonary History: Smoker (previously 2ppd x 45yrs, currently <1ppd x 6 mo), Asthma, COPD (maintained on Symbicort, Albuterol), YUNIOR Dx (denies) STRUCTURAL ENGINEERING TECHNICIAN History: Other (Chronic Pain/Neuropathy maitnained on Gabapentin. Anxiety/ Depression maintained on Prozac, Xanax) Other Medical History: Renal (CRI/GFR = 38, Stage # CKD), Diabetes Type II ( maintained on Tradjenta, Glipizide), Thyroid (maitnained on Synthroid), GERD ( maintained on RAnitidine) Anesthesia History: No Prior Anesthetic Complications, Past Anesthesia (MARÍA, R- breast ducts removed, t&A, R-leg OIRF, BLE bypass grafts 2015) Alcohol Use: occasionally, heavy Drug use: none Medications and Allergies Amlodipine Besylate 10 mg PO DAILY 12/19/15 [History] Ergocalciferol (VITAMIN D2) [Vitamin D2 (50,000 UNIT)] 50,000 unit PO PARK [History] FLUoxetine HCl [Prozac] 40 mg PO QPM 12/19/15 [History] Gabapentin [Neurontin] 300 mg PO TID 12/19/15 [History] Levothyroxine [Synthroid] 125 mcg PO DAILY 12/19/15 [History] Metoprolol XL (24 HR) Succ [Toprol Xl] 25 mg PO QPM 12/19/15 [History] Nitroglycerin 0.4 mg SL Q5MIN PRN 12/19/15 [History] Simvastatin [Zocor] 40 mg PO HS 12/19/15 [History] Cholecalciferol (Vitamin D3) [Vitamin D3] 2,000 unit PO DAILY 02/28/16 [History] Linagliptin [Tradjenta] 5 mg PO DAILY 02/28/16 [History] Aspirin Enteric Coated [Aspirin EC] 81 mg PO DAILY 03/21/16 [History] Clopidogrel [Plavix] 75 mg PO QPM 03/21/16 [History] Ranitidine HCl [Zantac] 300 mg PO DAILY 03/21/16 [History] Fenofibrate Nanocrystallized [Fenofibrate] 145 mg PO DAILY 09/29/16 [History] Albuterol Sulfate [Proair Hfa] 1 puff IH Q4HR PRN #1 inh 10/04/16 [Rx] Budesonide/Formoterol 160/4.5 [Symbicort 160/4.5] 1 puff IH DAILY #1 inhaler 06/10 [Rx] Nicotine Patch [Nicoderm] 21 mg TD DAILY #30 patch.td24 10/04/16 [Rx] Pantoprazole [Protonix] 40 mg IVP DAILY #14 vial 10/04/16 [Rx] PredniSONE 40 mg PO DAILY #2 tablet 10/04/16 [Rx] Alprazolam [Xanax 0.25 MG Tablet] 0.25 mg PO TID PRN #21 tablet 10/07/16 [Rx] Lisinopril [Zestril] 40 mg PO DAILY #30 tablet 10/07/16 [Rx] Metformin HCl [Metformin HCl ER] 1,000 mg PO DAILY #30 [id number] 10/07/16 [Rx] OxyCODONE/APAP 5/325 [Percocet 5/325 MG] 1 tab PO Q6HR PRN #30 tablet 10/07/16 [ Rx] Pantoprazole Sodium 40 mg PO BID #14 tablet. 10/07/16 [Rx] Allergies No Known Allergies Allergy (Verified 04/24/16 08:30) - Meds/Allergy Pre-op Review Medications Reviewed: Yes Allergies Reviewed: Yes Beta Blockers on Current Med List: Yes (Metoprolol) If Beta Blockers taken, Date/Time (Last Dose taken): 12/24/16 @ 2100 Anesthesia Results - Labs Laboratory Tests 09/29/16 09/29/16 12/23/16 04:34 04:34 12:54 WBC Hgb Hct Plt Count PT 11.2 INR 1.0 APTT 34.4 Sodium Potassium Chloride Carbon Dioxide BUN Creatinine Est GFR (Non-Af Amer) Glucose Hemoglobin A1c Calculated Osmolality B-Natriuretic Peptide 684 H Triglycerides 196 H Cholesterol 163 VLDL Cholesterol, Calc 39 H HDL Cholesterol 36 L 12/23/16 12/23/16 12/23/16 12:54 12:54 12:54 WBC 6.6 Hgb 11.6 Hct 36.6 Plt Count 278 PT INR APTT Sodium 141 Potassium 4.2 Chloride 109 Carbon Dioxide 24 BUN 16 Creatinine 1.41 H Est GFR (Non-Af Amer) 38 L Glucose 53 L Hemoglobin A1c 5.9 H Calculated Osmolality 291 B-Natriuretic Peptide Triglycerides Cholesterol VLDL Cholesterol, Calc HDL Cholesterol - Imaging EKG: image reviewed (52bpm SB) Anesthesia Exam O2 Sat Height 1.6 m Height 1.6 m Height 1.6 m Weight 108.409 kg Weight 108.409 kg Weight 108.409 kg O2 Sat by Pulse Oximetry 98 Vital Signs Temp Pulse Resp BP Pulse Ox 98.6 F 47 18 150/57 98 12/25/16 08:28 12/25/16 08:28 12/25/16 08:28 12/25/16 08:28 12/25/16 08:28 Height: 5'6" Weight: 238# BMI = 42 NPO (# of Hours): MNOc - HEENT Pupil (Motor): Pupils equal, EOMI Mallampati: III Teeth: Edentulous Oral Opening: Greater than 3 - STRUCTURAL ENGINEERING TECHNICIAN LOC: Oriented STRUCTURAL ENGINEERING TECHNICIAN Motor: Normal RUE, Normal LUE, Normal RLE, Normal LLE, Normal Face STRUCTURAL ENGINEERING TECHNICIAN Sensory: Normal: RUE, LUE, RLE, LLE, Face - Cardiac Rhythm: Regular Murmur: None - Pulmonary Breath Sounds: bilateral Clear Respiratory Effort: Symmetrical Anesthesia Assess/Plan ASA Score: 3 (MO, PVDz, CAD, HTN, Chol, DM, ASthma/COPD, Hypothyroidism) Modified [place] Scale for Level of Consciousness: Cooperative, oriented, and tranquil Anesthetic Plan: General Monitoring Plan: Standard Monitors, A-Line Recovery Plan: PACU Anes Supervising Prov Stmt: PT seen/evaluated, R&B Discussed, questions answered and consent obtained. Ramesh Greene MD
[2016-12-25] MEDS ORDERED: Heparin 1,000 UNITS/500 mL NS 500 ML ONE (09:05)
[2016-12-25] MEDS ORDERED: Gabapentin 300 MG CAPSULE PO STA (09:25)
[2016-12-25] MEDS ORDERED: Gabapentin 300 MG CAPSULE ONE (09:27)
--- NOTE | 2016-12-25 09:53 | History & Physical Report ---
Date of Encounter: 12/25/16 Time of Encounter: 09:48 24 Hour HP Update - Instructions Instructions: If the History and Physical is less than 30 days old and was completed prior to A.M. admission and or procedure and has NOT been updated on calendar day of procedure please complete this update prior to performing procedure. - Update Patient reports changes in Medical Condition: No Changes in examination, assessment, or condition: No Changes in Medication: No Preop tests/diagnostics Reviewed: Yes Surgery Remains Indicated: Yes Consent for Planned Operative Procedure(s) Verified: Yes - Pre-Operative Checklist Preoperative Checklist Indicated: Yes Prophylactic Antibiotic Ordered: Yes (vancomycin due to mrsa risk) Home Medications Include Beta Jay: Yes Beta Jay Taken Today (Day of Surgery): Yes Beta Jay Taken Yesterday (Day Prior to Surgery): Yes Is VTE Prophylaxis Indicated?: Yes
[2016-12-25] MEDS ORDERED: Heparin 1,000 UNITS/500 mL NS 1,000 ML ONE (09:55)
[2016-12-25] MEDS ORDERED: Vancomycin 1,000 MG VIAL ONE (09:55)
[2016-12-25] MEDS ORDERED: Lidocaine -MPF 2% 5 ML VIAL INFILT ONE (10:26)
[2016-12-25] MEDS ORDERED: Lidocaine -MPF 4% 5 ML AMPUL ONE (14:17)
[2016-12-25] MEDS ORDERED: *HR* Succinylcholine 200 MG/10 ML VIAL IVP ONE (14:17)
[2016-12-25] MEDS ORDERED: *HR* Rocuronium Bromide 50 MG/5 ML VIAL ONE (14:17)
[2016-12-25] MEDS ORDERED: *HR* Propofol 200 MG/20 ML VIAL IVP ONE (14:17)
[2016-12-25] MEDS ORDERED: *HR* Phenylephrine 10 MG/ML VIAL ONE (14:17)
[2016-12-25] MEDS ORDERED: *HR* Heparin 5,000 UNIT/ML VIAL ONE (14:17)
[2016-12-25] MEDS ORDERED: Lidocaine -MPF 2% 2 ML VIAL ONE (14:17)
[2016-12-25] MEDS ORDERED: *HR* Midazolam HCl 2 MG/2 ML VIAL ONE (14:17)
[2016-12-25] MEDS ORDERED: EPHEDrine 50 MG/ML VIAL ONE (14:17)
[2016-12-25] MEDS ORDERED: *HR* FentaNYL (PF) 100 MCG/2 ML VIAL ONE (14:17)
[2016-12-25] MEDS ORDERED: *HR* Remifentanil 2 MG VIAL IVP ONE (14:17)
--- NOTE | 2016-12-25 14:17 | Operative Note ---
Date of procedure: 12/25/16 Pre-op diagnosis: Peripheral vascular disease, Aortic thrombus Post-op diagnosis: same Procedure: 1. Right femoral vessel exposure for endograft placement. 2. Introduction of catheter into aorta via right common femoral artery. 3. Repair of abdominal aorta with exclusion of aortic thrombus with Cook Natalya Converter Endograft including radiologic supervision and interpretation. 4. Placement of right extension limb with radiologic supervision and interpretation. Complications: None Anesthesia: GETA Surgeon: Ketan Hargrove Estimated blood loss (cc): 500 Specimen: None Condition: stable Disposition: same day Procedure in Detail: Indications: The patient is a 61 year old female with a history of severe peripheral vascular disease with an aortoiliac occlusion. Her right iliac was previously stent and she underwent a FEM-FEM bypass. She now has recurrent disease with additional aortic thrombus noted to be present within her stent. Endograft repair was recommended to reduce risk of embolus and further morbidity. Procedure: The patient was identified, brought to the operating room and placed in the supine position on the operating room table. After induction of general endotracheal anesthesia, the patient was cleaned and draped in normal sterile fashion. An oblique incision was made through the scar overlying her right groin sharply. Hemostasis was obtained with electrocautery. Using blunt and sharp and electrocautery dissection, the right common, deep and superficial femoral arteries were dissected circumferentially and surrounded with Vessel loops. The right limb of the femorl to femoral artery bypass was also dissected circumferentially and surrounded with a vessel loop. At this point, the patient received 5000 units of heparin intravenously and then a right femoral puncture was made with a large-bore needle. A Rub[place]on wire was advanced into the aorta under fluoroscopic view. The needle was exchanged for an #8-Bolivian sheaths and a long Pigtail catheter was advanced over the wire into the aortic arch. The wire was then replaced with a Lunderquist wire. The wire length was marked and gerber wire was removed. An angiogram was then performed to determine the level of the renal arteries. The lunderquist wire was then advanced to the aortic arch and the catheter was removed. The patient has a chronic left iliac occlusion. Therefore, a Natalya main body was inserted over the Lunderquist wire. The graft was positioned just inferior to the renal arteries and the first 2 segments were deployed. The suprarenal stent was then deployed in the usual fashion. The remaining portion of the main body was deployed, the top cap was retrieved and the introducer was removed. An oblique view of the right pelvis was performed in a similar fashion to determine the length of the graft on the right. The graft extension was then advanced on the right and positioned in the usual fashion. Upon completion of the graft docking limb extension, a Coda balloon was then advanced into the graft proximal and distal endpoints as well as overlap were expanded with gentle pressure. The balloon was left in the suprarenal position and an angiogram revealed infrarenal placement of the endograft. There was no evidence of an endoleak. Tension was applied to the Vessel loops in the groin. The sheath was then removed. After confirming hemodynamic stability, the wire was then removed. The arteriotomy wwas repaired with a running 6-0 Prolene. Antibiotic irrigation was infused into the groin. Platelet rich and platelet poor plasma were infused into the incisions. The bilateral groins were closed with a single layer of 2- 0 Vicryl followed by two layers of 3-0 Vicryl followed by a layer of 3-0 monocryl in the subcuticular region. A sterile dressing was applied. The patient was then extubated and taken to the recovery room in stable condition. DEVICE SIZES: 1. Main body: 26 x 108mm Reun Converter 2. RIght extension: 11 x 90
--- NOTE | 2016-12-25 15:23 | Anesthesia Evaluation Post Op ---
Date of Encounter: 12/25/16 Time of Encounter: 15:20 - Vital Signs Vital Signs: Vital Signs/O2 Sat, Most Current Temp Pulse Resp BP Pulse Ox 97.8 F 53 16 109/88 98 12/25/16 14:59 12/25/16 15:09 12/25/16 15:09 12/25/16 15:09 12/25/16 15:09 - Lungs Lungs: Clear Ascult./Percussion - Airway Airway: Non-obstructed - Cardiovascular Regular Rate - Mental Status Mental Status: Alert & Oriented, Answers Appropriately - Pain Pain Scale: 5 Pain Scale used: Numeric (1 - 10) - Nausea Vomiting Nausea Vomiting: Not Present - Hydration Hydration: NPO, Campos catheter - Discharge PostOp Status: Transfer Patient to floor
[2016-12-25] MEDS ORDERED: *HR* Dextrose 50 % in Water (Syg) 50 ML SYRINGE IVP PRN (15:53)
[2016-12-25] MEDS ORDERED: *HR* Morphine 2 MG/ML SYRINGE IVP PRN (15:53)
[2016-12-25] MEDS ORDERED: ALPRAZolam 0.25 MG TABLET PO PRN (15:53)
[2016-12-25] MEDS ORDERED: Ondansetron 4 MG/2 ML VIAL IVP PRN (15:53)
[2016-12-25] MEDS ORDERED: Naloxone 0.4 MG/ML INJ IVP PRN (15:53)
[2016-12-25] MEDS ORDERED: *HR* Labetalol 20 MG/4 ML SYRINGE IVP PRN (15:53)
[2016-12-25] MEDS ORDERED: 0.9 % Sodium Chloride 1,000 ML IVC SCH (15:53)
[2016-12-25] MEDS ORDERED: Dextrose Gel 15 GM PO PRN ×2 (15:53)
[2016-12-25] MEDS ORDERED: Nitroglycerin 0.4 MG TAB.SUBL SL PRN (15:53)
[2016-12-25] MEDS ORDERED: Acetaminophen 325 MG TABLET PO PRN (15:53)
[2016-12-25] MEDS ORDERED: D5% in Water 1,000 ML IVC PRN (15:53)
[2016-12-25] MEDS ORDERED: *HR* HYDROcodone/Acet 5/325 mg TABLET PO PRN (15:53)
[2016-12-25] MEDS: Gabapentin 300 MG CAPSULE PO SCH ×2 (16:39→21:09)
[2016-12-25] MEDS: *HR* OxyCODONE Immed Rel 5 MG TABLET PO PRN (16:39)
[2016-12-25] MEDS: Insulin LISPRO 300 UNITS/3 ML VIAL SQ SCH (16:55)
[2016-12-25] MEDS: ceFAZolin 3,000 MG in D5% in Water 100 ML IVPB SCH (16:55)
[2016-12-25] MEDS: *HR* Metoprolol 5 MG/5 ML VIAL IVP SCH (17:20)
[2016-12-25] MEDS ORDERED: FLUoxetine 20 MG CAPSULE PO SCH (18:00)
[2016-12-25] MEDS ORDERED: amLODIPine 5 MG TABLET PO SCH (18:00)
[2016-12-25] MEDS ORDERED: *HR* Heparin 5,000 UNIT/ML VIAL SQ SCH (18:00)
[2016-12-25] MEDS ORDERED: Insulin LISPRO 300 UNITS/3 ML VIAL SQ SCH (21:00)
[2016-12-25] MEDS: Famotidine 20 MG TABLET PO SCH (21:09)
[2016-12-26] MEDS: *HR* Metoprolol 5 MG/5 ML VIAL IVP SCH ×2 (00:13→06:17)
[2016-12-26] MEDS: ceFAZolin 3,000 MG in D5% in Water 100 ML IVPB SCH (00:14)
[2016-12-26 04:55] LABS: Basophils # 0.1 K/mcL (0.0-0.2); Basophils % 0.4 %; Eosinophils # 0.2 K/mcL (0.0-0.6); Eosinophils % 1.1 %; Hematocrit 30.4 % (35.3-44.9); Immature Granulocytes % 0.3 % (0-4); Lymphocytes # 1.2 K/mcL (0.6-4.6); Lymphocytes % 8.1 %; Mean Corpuscular HGB Conc 31.9 g/dL (31.6-35.5); Mean Corpuscular Hemoglobin 27.3 pg (28.0-33.3); Mean Corpuscular Volume 85.6 fL (83.0-100.0); Monocytes # 1.2 K/mcL (0.0-1.3); Monocytes % 7.9 %; Platelet Count 259 K/mcL (140-400); Red Blood Count 3.55 M/mcL (3.82-4.97); Red Cell Distribution Width 14.2 % (11.5-14.5); Segmented Neutrophils % 82.2 %
[2016-12-26 05:11] LABS: Hemoglobin 9.7 g/dL (11.5-15.4); Neutrophils # 12.2 K/mcL (1.6-8.9)
[2016-12-26 05:15] LABS: Potassium 4.1 mEq/L (3.5-4.5)
[2016-12-26] MEDS ORDERED: *HR* Heparin 5,000 UNIT/ML VIAL SQ SCH (06:00)
--- NOTE | 2016-12-26 07:04 | Discharge Summary ---
Date of Encounter: 12/26/16 Time of Encounter: 07:50 - Discharge Diagnosis (1) Atherosclerosis of aortic bifurcation and common iliac arteries Priority: Primary Status: Chronic Comments: The patient is postoperative day #1 after endograft repair of her abdominal aorta with exclusion of aortic thrombus. She reports that her pain is well controlled. Her pedal signals are present, her compartments are soft and her incision has no hematoma. She will be discharged today. She will continue with ASA and Plavix. (2) Atherosclerosis with claudication of extremity Priority: Secondary Status: Chronic (3) Mixed hyperlipidemia Priority: Secondary Status: Chronic Comments: She was counseled regarding atherosclerotic risk factor reduction. (4) Unspecified essential hypertension Priority: Secondary Status: Chronic (5) Morbid obesity Priority: Secondary Status: Chronic Qualifiers: Obesity type: due to excess calories Qualified Code(s): E66.01 - Morbid ( severe) obesity due to excess calories (6) Tobacco abuse Priority: Secondary Status: Chronic Comments: She was counseled regarding smoking cessation. (7) Chronic kidney disease, stage 3 Priority: Secondary Status: Chronic Comments: GFR is at baseline. Patient encouraged to continue with oral hydration. (8) CAD (coronary artery disease) Priority: Secondary Status: Chronic Qualifiers: Coronary Disease-Associated Artery/Lesion type: [place] artery [place] vs. transplanted heart: [place] heart Associated angina: angina presence unspecified Qualified Code(s): I25.10 - Atherosclerotic heart disease of [place] coronary artery without angina pectoris (9) Anemia, chronic disease Priority: Secondary Status: Acute Comments: The patient has chronic anemia with acute expected postoperative blood loss anemia. She is hemodynamically stable without evidence of ongoing blood loss. (10) Diabetes mellitus type 2 in obese Priority: Secondary Status: Chronic - Discharge Medications Prescriptions: OxyCODONE/APAP 5/325 [Percocet 5/325 MG] 1 tab PO Q4H PRN #40 tablet PRN Reason: POSTOPERATIVE PAIN Home Medications: Ergocalciferol (VITAMIN D2) [Vitamin D2 (50,000 UNIT)] 50,000 unit PO PARK [History] FLUoxetine HCl [Prozac] 40 mg PO QPM 12/19/15 [History] Gabapentin [Neurontin] 300 mg PO TID 12/19/15 [History] Levothyroxine [Synthroid] 125 mcg PO DAILY 12/19/15 [History] Metoprolol XL (24 HR) Succ [Toprol Xl] 25 mg PO QPM 12/19/15 [History] Nitroglycerin 0.4 mg SL Q5MIN PRN 12/19/15 [History] Simvastatin [Zocor] 40 mg PO HS 12/19/15 [History] Cholecalciferol (Vitamin D3) [Vitamin D3] 2,000 unit PO DAILY 02/28/16 [History] Linagliptin [Tradjenta] 5 mg PO DAILY 02/28/16 [History] Aspirin Enteric Coated [Aspirin EC] 81 mg PO DAILY 03/21/16 [History] Clopidogrel [Plavix] 75 mg PO QPM 03/21/16 [History] Fenofibrate Nanocrystallized [Fenofibrate] 145 mg PO DAILY 09/29/16 [History] Albuterol Sulfate [Proair Hfa] 1 puff IH Q4HR PRN #1 inh 10/04/16 [Rx] Budesonide/Formoterol 160/4.5 [Symbicort 160/4.5] 1 puff IH DAILY #1 inhaler 06/10 [Rx] Alprazolam [Xanax 0.25 MG Tablet] 0.25 mg PO TID PRN #21 tablet 10/07/16 [Rx] Amlodipine [Norvasc] 5 mg PO QPM 12/25/16 [History] GlipiZIDE [Glipizide ER] 10 mg PO BID 12/25/16 [History] Pantoprazole Sodium 40 mg PO DAILY 12/25/16 [History] Ranitidine HCl [Zantac] 150 mg PO BID 12/25/16 [History] OxyCODONE/APAP 5/325 [Percocet 5/325 MG] 1 tab PO Q4H PRN #40 tablet 12/26/16 [ Rx] Allergies/Adverse Reactions: Allergies No Known Allergies Allergy (Verified 12/25/16 10:11) Date of admission: 12/25/16 15:19 Primary care physician: Amy Ocampo CNP Consults: 12/25/16 16:23 Consult to Nutrition [CONS] Routine Comment: Consulting Provider: NUTRITION Reason for Dietary Consult: PO Supplementation Procedure(s) Performed: Endograft repair of aortic aneurysm. Discharging clinician: Ketan Yu Anticipated date of discharge: 12/26/16 - Patient Status Disposition: Home, Self-Care Condition: Good Functional capacity at discharge: independent ambulation Overall status at discharge: patient is back to baseline - Discharge Instructions Instructions: Oxycodone/Acetaminophen (By mouth), Peripheral Vascular Disorders (DC), Surgical Site Infections (GEN) Follow Up With: Amy Ocampo CNP [Primary Care Provider] - 01/01/17 8:30 am (Please arrive at 0815 for check in. This appointment is with Dr. Jaramillo ) Ketan Yu MD [Partnered Physician] - 02/05/17 1:00 pm Additional Instructions: MAY REMOVE BANDAGE AND SHOWER ON 12/28/16. WASH WOUND GENTLY AND PAT TO DRY. APPLY DRY GAUZE AND TAPE TO WOUNDS DAILY FOR 7 DAYS. NO TUB BATHS OR SWIMMING UNTIL 01/28/17. CALL DR. YU AT [phone] WITH QUESTIONS OR CONCERNS. - Diet and Activity Activity: increase activity as tolerated - Hospital Course Hospital course: Ms. Stein is a 61 year old female with a history of peripheral vascular disease with diasbling claudication. She was found to have aortic thrombus extending into her right iliac artery and a chronic left iliac artery occlusion. She underwent endograft exclusion of the thrombus on 12/25/16. She tolerated the procedure well. She was discharged on postoperative day #1 in stable condition without complication. - Time Spent with Patient Total time spent providing and/or coordinating discharge services: Exam Vital Signs, Last 4 Hours Temp Pulse Resp BP Pulse Ox 12/26/16 04:00 98.2 F 59 15 115/67 99 12/26/16 03:23 58 - VTE Documentation of Mechanical Device: Intermittent pneumatic compression device
[2016-12-26 07:52] VITALS: BP 135/62
[2016-12-26] MEDS: *HR* OxyCODONE Immed Rel 5 MG TABLET PO PRN (08:25)
[2016-12-26] MEDS ORDERED: Fenofibrate 54 MG TABLET PO SCH (09:00)
[2016-12-26] MEDS ORDERED: Budesonide/Formoterol 160/4.5 MDI IH SCH (09:00)
[2016-12-26] MEDS ORDERED: Cholecalciferol (D-3) 1,000 UNIT TABLET PO SCH (09:00)
[2016-12-26] MEDS ORDERED: (Linagliptin [Tradjenta] 5 MG) PO SCH (09:00)
[2016-12-26] MEDS ORDERED: Aspirin Enteric Coated 81 MG Tablet PO SCH (09:00)
[2016-12-26] MEDS ORDERED: *HR* GlipiZIDE XL (24 HR) 10 MG TABLET PO SCH (09:00)
[2016-12-26] MEDS: Insulin LISPRO 300 UNITS/3 ML VIAL SQ SCH (09:33)
[2016-12-26] MEDS: Famotidine 20 MG TABLET PO SCH (09:34)
[2016-12-26] MEDS: Gabapentin 300 MG CAPSULE PO SCH (09:36)
[2016-12-27] MEDS ORDERED: Metoprolol XL (24 HR) Succ 25 MG TAB.ER.24H PO SCH (18:00)
== END 2016-12-26 12:06 | disposition home or self-care (01) | DRG 269 ==
LOC: SAMDAY 08:02 → 2NNU 15:19
PROVIDERS: ADMIT Surgery; ATTEND Surgery

== ENCOUNTER 2017-11-13 09:18 | Inpatient (IN) ==
[2017-11-13] MEDS ORDERED: Albuterol 2.5 MG/3 ML NEBULIZER IH ONE (09:46)
[2017-11-13] MEDS ORDERED: CeFAZolin Syr 2,000MG/20 ML 2,000 MG/20 ML SYRINGE IVPB ONE (09:46)
[2017-11-13] MEDS ORDERED: Lidocaine -MPF 1% 2 ML VIAL ID ONE (09:46)
[2017-11-13] MEDS ORDERED: Ringers Solution, Lactated 1,000 ML IVC SCH (10:00)
--- NOTE | 2017-11-13 10:14 | Anesthesia Evaluation PreOp ---
Date of Encounter: 11/13/17 Time of Encounter: 10:11 - Past History Planned Operation: Right femoral endarterectomy, iliac stent Cardiac History: [place] (possibly), HTN, Hyperlipidemia, Cardiac Stent (mid RCA stent placed ), Other (peripheral vascular disease s/p prior vascular surgery (right iliac stent, fem-fem, repair of abdominal aorta)) Pulmonary History: Smoker, COPD (during acute COPD exacerbations, uses 2L nasal oxygen at night (this situation is rare per the patient)) TECHNICAL SOLUTIONS ENGINEER History: Denies Any Significant HX Other Medical History: Renal (stage III ckd), Diabetes Type II (oral medications only) Anesthesia History: No Prior Anesthetic Complications Alcohol Use: none Drug use: none Medications and Allergies Ergocalciferol (VITAMIN D2) [Vitamin D2 (50,000 UNIT)] 50,000 unit PO PARK [History] FLUoxetine HCl [Prozac] 40 mg PO QPM 12/19/15 [History] Gabapentin [Neurontin] 300 mg PO TID 12/19/15 [History] Levothyroxine [Synthroid] 125 mcg PO DAILY 12/19/15 [History] Metoprolol XL (24 HR) Succ [Toprol Xl] 25 mg PO QPM 12/19/15 [History] Nitroglycerin 0.4 mg SL Q5MIN PRN 12/19/15 [History] Simvastatin [Zocor] 40 mg PO HS 12/19/15 [History] Cholecalciferol (Vitamin D3) [Vitamin D3] 2,000 unit PO DAILY 02/28/16 [History] Linagliptin [Tradjenta] 5 mg PO DAILY 02/28/16 [History] Aspirin Enteric Coated [Aspirin EC] 81 mg PO DAILY 03/21/16 [History] Clopidogrel [Plavix] 75 mg PO QPM 03/21/16 [History] Fenofibrate Nanocrystallized [Fenofibrate] 145 mg PO DAILY 09/29/16 [History] Albuterol Sulfate [Proair Hfa] 1 puff IH Q4HR PRN #1 inh 10/04/16 [Rx] Budesonide/Formoterol 160/4.5 [Symbicort 160/4.5] 1 puff IH DAILY #1 inhaler 06/10 [Rx] ALPRAZolam [Xanax 0.25 MG Tablet] 0.25 mg PO TID PRN #21 tablet 10/07/16 [Rx] Pantoprazole Sodium 40 mg PO DAILY 12/25/16 [History] Ranitidine HCl [Zantac] 150 mg PO BID 12/25/16 [History] amLODIPine [Norvasc] 5 mg PO QPM 12/25/16 [History] glipiZIDE [Glipizide ER] 10 mg PO BID 12/25/16 [History] OxyCODONE/APAP 5/325 [Percocet 5/325 MG] 1 tab PO Q4H PRN #40 tablet 12/26/16 [ Rx] 3 Allergy/AdvReac Type Severity Reaction Status Date / Time No Known Allergies Allergy Verified 12/25/16 10:11 - Meds/Allergy Pre-op Review Medications Reviewed: Yes Allergies Reviewed: Yes Beta Blockers on Current Med List: Yes (metoprolol xl) Anesthesia Results - Imaging EKG: report reviewed, image reviewed (sinus bradycardia) Additional studies: -2016 TTE: Indications: Acute coronary syndrome Impressions: LVEF 55-60%. Normal LV chamber size and wall thickness. Not all LV segments were well visualized, but overall LV function appears normal. Mild left ventricular diastolic dysfunction. Normal right ventricular structure and function. No evidence of pulmonary hypertension. No significant valvular dysfunction. Reported difficult IV access and unable to give Definity. Anesthesia Exam Last Vital Signs Temp 97.7 F 11/13/17 09:58 Pulse 51 11/13/17 09:58 Resp 18 11/13/17 09:58 BP 160/74 11/13/17 09:58 Pulse Ox 99 11/13/17 09:58 Weight: 105 kg NPO (# of Hours): > 8 hrs - HEENT Pupil (Motor): Pupils equal, EOMI Mallampati: III Teeth: Edentulous Oral Opening: Greater than 3 - TECHNICAL SOLUTIONS ENGINEER LOC: Oriented - Cardiac Rhythm: Regular Murmur: None - Pulmonary Breath Sounds: bilateral Clear Respiratory Effort: Symmetrical Anesthesia Assess/Plan ASA Score: 3 Modified Gideon Scale for Level of Consciousness: Cooperative, oriented, and tranquil Anesthetic Plan: General Monitoring Plan: Standard Monitors, A-Line Recovery Plan: PACU
[2017-11-13] MEDS ORDERED: *HR* Rocuronium Bromide 50 MG/5 ML VIAL ONE (10:16)
[2017-11-13] MEDS ORDERED: *HR* Succinylcholine 200 MG/10 ML VIAL IVP ONE (10:16)
[2017-11-13] MEDS ORDERED: *HR* Propofol 200 MG/20 ML VIAL IVP ONE ×2 (10:21→13:15)
[2017-11-13] MEDS ORDERED: *HR* Midazolam HCl 2 MG/2 ML VIAL ONE (10:21)
[2017-11-13] MEDS ORDERED: *HR* FentaNYL (PF) 100 MCG/2 ML VIAL ONE ×2 (10:21→15:12)
[2017-11-13] MEDS ORDERED: Lidocaine -MPF 2% 2 ML VIAL ONE (10:24)
[2017-11-13] MEDS ORDERED: Lidocaine -MPF 4% 5 ML AMPUL ONE (10:25)
[2017-11-13] MEDS ORDERED: Vancomycin 1,000 MG, Sodium Chloride IRRigation 1,000 ML IR ONE (10:55)
[2017-11-13] MEDS ORDERED: Heparin 1,000 UNITS/500 mL 500 ML ONE (11:48)
--- NOTE | 2017-11-13 12:05 | History & Physical Report ---
Date of Encounter: 11/13/17 Time of Encounter: 12:00 24 Hour HP Update - Instructions Instructions: If the History and Physical is less than 30 days old and was completed prior to A.M. admission and or procedure and has NOT been updated on calendar day of procedure please complete this update prior to performing procedure. - Update Patient reports changes in Medical Condition: No Changes in examination, assessment, or condition: No Changes in Medication: No Preop tests/diagnostics Reviewed: Yes Surgery Remains Indicated: Yes Consent for Planned Operative Procedure(s) Verified: Yes - Pre-Operative Checklist Preoperative Checklist Indicated: Yes Prophylactic Antibiotic Ordered: Yes (vancomycin due to MRSA risk) Home Medications Include Beta Jay: Yes Beta Jay Taken Today (Day of Surgery): Yes Beta Jay Taken Yesterday (Day Prior to Surgery): Yes Is VTE Prophylaxis Indicated?: Yes
[2017-11-13] MEDS ORDERED: Heparin 1,000 UNITS/500 mL 1,500 ML ONE (12:17)
[2017-11-13] MEDS ORDERED: Lidocaine 1% 20 ML MDV ONE (12:18)
[2017-11-13] MEDS ORDERED: Vancomycin 1,000 MG VIAL ONE (12:21)
[2017-11-13] MEDS ORDERED: Isovue-300 50 ML VIAL IVP ONE (12:44)
[2017-11-13] MEDS ORDERED: EPHEDrine 50 MG/ML VIAL ONE (13:10)
[2017-11-13] MEDS ORDERED: *HR* Phenylephrine 10 MG/ML VIAL ONE (13:31)
--- NOTE | 2017-11-13 14:00 | Anesthesia Procedures ---
Date of Encounter: 11/13/17 Time of Encounter: 13:15 Procedures: Anesthesia - Arterial Line Consent obtained: written consent Time out performed: Yes Size (Gauge): 20 Length (inches): 1 3/4 Technique Used: sterile prep, guide wire technique Post-Procedure: line taped into place Patient tolerated procedure: well Complications: none Site: Radial L Comments: completed after induction
[2017-11-13] MEDS ORDERED: Ondansetron 4 MG/2 ML VIAL IVP ONE (14:01)
[2017-11-13] MEDS ORDERED: MORPHINE SUL Oral CONC 10 MG/0.5 ML ORAL.SYG SL PRN (14:01)
[2017-11-13] MEDS ORDERED: *HR* FentaNYL (PF) 100 MCG/2 ML VIAL IVP PRN (14:01)
[2017-11-13] MEDS ORDERED: *HR* OxyCODONE Immed Rel 5 MG TABLET PO PRN (14:01)
[2017-11-13] MEDS ORDERED: *HR* Promethazine 25 MG/ML VIAL IVP PRN (14:01)
[2017-11-13] MEDS ORDERED: *HR* Labetalol 20 MG/4 ML SYRINGE IVP PRN ×2 (14:01→16:41)
[2017-11-13] MEDS ORDERED: *HR* Heparin 5,000 UNIT/ML VIAL ONE (14:13)
[2017-11-13] MEDS ORDERED: Dexamethasone 4 MG/ML VIAL ONE (14:27)
[2017-11-13] MEDS ORDERED: Acetaminophen IV 1,000 MG/100 ML INFUS..BTL ONE (14:47)
[2017-11-13] MEDS ORDERED: Ondansetron 4 MG/2 ML VIAL ONE (14:53)
--- NOTE | 2017-11-13 15:52 | Operative Note ---
Date of procedure: 11/13/17 Pre-op diagnosis: Peripheral vascular disease Post-op diagnosis: same Procedure: 1. Abdominal aortogram. 2. Right common iliac artery 10 x 37mm stent post dilated with 12 x 40mm balloon. 3. Right common and deep femoral endarterectomy. 4. Right to left femoral to femoral artery bypass graft thrombectomy. Complications: None Anesthesia: GETA Surgeon: Ketan Hargrove Was there an water quality assistant present: No Estimated blood loss (cc): 100 Specimen: graft thrombus Condition: stable Disposition: PACU Procedure in Detail: Indications: The patient is a 62 year old female with a history of peripheral vascular disease with disabling claudication. She has preveiously undergone iliac stent placement, endograft exclusion of aortic thrombus and a right femoral to left femoral artery bypass. She presented to clinic with recurrent disabling claudication. She was found to have severe inflow disease. Revascularization was recommended to alleviate her symptoms. Procedure: The patient was identified in the preoperative area. The risks, benefits, and alternatives of the procedure were discussed. All questions were answered. The patient was taken to the operating room and placed in supine position on the operating room table. After the induction of general endotracheal anesthesia, he was cleaned and draped in normal sterile fashion. An oblique incision was made over the right groin through her previous scar sharply. Hemostasis was obtained with electrocautery. Through a process of blunt, sharp, and electrocautery dissection, the right femoral vessels were dissected circumferentially and surrounded with vessel loops. The right limb of the bypass graft was also dissected circumferentially and surrounded with vessel loops. The patient then received 5000 units of heparin intravenously. After waiting adequate time for the heparin to circulate, the right femoral vessles and graft were occluded. A longitudinal incision was made in the graft anastamosis and extended in the common femoral artery. A [email or web address] wire was advanced through a 7 arabic sheath that was positioned in the right iliac artery. Using a berenstain catheter, the wire was directed through the iliac stenosis and into the aorta under fluoroscopic view. The wire was removed and an abdominal aortagram and iliac angiogram was then performed. This confirmed a right iliac stenosis. A 10 x 37mm stent was advanced over the wire. The stent was positioned under fluoroscopic guidance and confirmed with retrograde angiography. The stent was deployed and the balloon was removed. A 12 x 40mm balloon was advanced over the wire and the stent was post dilated to 12mm in diameter. An angiogram revealed no residual stenosis. The sheath was removed and the vessel was flushed. Strong pulsatile blood flow was noted. The vessels were occluded with vessel loops. Upon releast of the clamp on the femoral to femoral artery bypass graft, no flow was noted. A 4 arabic perlita embolectomy catheter was advanced into the graft and inflated. Multiple passes were required to removed acute and chronic thrombus. Strong retrograde flow as then noted. The graft was flushed and clamped. Intimal hyperplasia was noted in the common femoral artery along the origin of the femoral to femoral bypass graft. The lesion was noted to be extending into the origin of the right deep femoral artery. Using a dental [place], a standard endarterectomy was performed along the common and deep femoral arteries. Proximal and distal endpoints were inspected. No elevated flaps were noted. The lumen was irrigated with heparinized saline and bovine pericardial patch was cut to fit the defect and sutured in place with running 6-0 Prolene. Prior to completing the patch anastomosis, each vessel was flushed individually, then reoccluded. Heparinized saline was infused into the lumen. The patch was completed and flow was restored. Thrombin and Gelfoam were used to aid in hemostasis. Meticulous hemostasis was obtained with electrocautery. Polyphasic signal was noted distal to the distal end of the patch as well as in the deep and superficial femoral arteries. The wound was irrigated with antibiotic-containing saline. Platelet-rich and platelet-poor plasma were infused into the wound. The wounds were reapproximated with layer of 2-0 Vicryl followed by three layers of 3-0 Vicryl and 3-0 Monocryl in the subcuticular layer. Sterile dressings were applied. The patient was extubated, taken to recovery room in stable condition.
--- NOTE | 2017-11-13 16:15 | Anesthesia Evaluation Post Op ---
Date of Encounter: 11/13/17 Time of Encounter: 16:14 - Vital Signs Vital Signs: Vital Signs/O2 Sat, Most Current Temp Pulse Resp BP Pulse Ox 98.5 F 72 14 147/72 92 11/13/17 15:44 11/13/17 16:04 11/13/17 16:04 11/13/17 16:04 11/13/17 16:04 - Lungs Lungs: Clear Ascult./Percussion - Airway Airway: Non-obstructed - Cardiovascular Regular Rate - Mental Status Mental Status: Alert & Oriented, Answers Appropriately - Pain Pain Scale: 0 Pain Scale used: Numeric (1 - 10) - Nausea Vomiting Nausea Vomiting: Not Present - Hydration Hydration: Ice chips, Campos catheter - Discharge PostOp Status: Transfer Patient to floor
[2017-11-13] MEDS ORDERED: hydrOXYzine pamoate 25 MG CAPSULE PO PRN (16:41)
[2017-11-13] MEDS ORDERED: D5% in Water 1,000 ML IVC PRN (16:41)
[2017-11-13] MEDS ORDERED: 0.9 % Sodium Chloride 1,000 ML IVC SCH (16:41)
[2017-11-13] MEDS ORDERED: Acetaminophen 325 MG TABLET PO PRN (16:41)
[2017-11-13] MEDS ORDERED: Naloxone 0.4 MG/ML INJ IVP PRN (16:41)
[2017-11-13] MEDS ORDERED: *HR* HYDROcodone/Acet 5/325 mg TABLET PO PRN (16:41)
[2017-11-13] MEDS ORDERED: ALPRAZolam 0.25 MG TABLET PO PRN (16:41)
[2017-11-13] MEDS ORDERED: Ondansetron 4 MG/2 ML VIAL IVP PRN (16:41)
[2017-11-13] MEDS ORDERED: *HR* Dextrose 50 % in Water (Syg) 50 ML SYRINGE IVP PRN (16:41)
[2017-11-13] MEDS ORDERED: Nitroglycerin 0.4 MG TAB.SUBL SL PRN (16:41)
[2017-11-13] MEDS ORDERED: OXYCODONE Oral CONC 10 MG/0.5 ML ORAL.SYG SL PRN ×2 (16:41)
[2017-11-13] MEDS ORDERED: Dextrose Gel 15 GM/37.5 ML TUBE PO PRN ×2 (16:41)
[2017-11-13] MEDS: *HR* OxyCODONE Immed Rel 5 MG TABLET PO PRN ×2 (17:14→21:05)
[2017-11-13] MEDS: Ketorolac 15 MG/ML VIAL IVP SCH ×2 (17:14→23:32)
[2017-11-13] MEDS: *HR* Metoprolol 5 MG/5 ML VIAL IVP SCH (17:14)
[2017-11-13] MEDS: Insulin LISPRO 300 UNITS/3 ML VIAL SQ SCH (17:21)
[2017-11-13] MEDS ORDERED: FLUoxetine 20 MG CAPSULE PO SCH (18:00)
[2017-11-13] MEDS ORDERED: amLODIPine 5 MG TABLET PO SCH (18:00)
[2017-11-13] MEDS ORDERED: Insulin LISPRO 300 UNITS/3 ML VIAL SQ SCH (21:00)
[2017-11-13] MEDS: CeFAZolin Premix DUPLEX 2,000 MG/50 ML BAG IVPB SCH (21:05)
[2017-11-13] MEDS: Gabapentin 300 MG CAPSULE PO SCH (21:05)
[2017-11-13] MEDS: Famotidine 20 MG TABLET PO SCH (21:06)
[2017-11-14] MEDS: *HR* Metoprolol 5 MG/5 ML VIAL IVP SCH ×3 (02:31→11:07)
[2017-11-14 03:41] LABS: Basophils % 0.4 %; Hematocrit 33.6 % (35.3-44.9); Hemoglobin 10.4 g/dL (11.5-15.4); Immature Granulocytes % 0.5 % (0-4); Lymphocytes % 9.7 %; Mean Corpuscular Hemoglobin 27.2 pg (28.0-33.3); Monocytes # 0.6 K/mcL (0.0-1.3); Monocytes % 5.5 %; Neutrophils # 8.9 K/mcL (1.6-8.9); Platelet Count 309 K/mcL (140-400); Red Blood Count 3.82 M/mcL (3.82-4.97); Red Cell Distribution Width 14.5 % (11.5-14.5); Segmented Neutrophils % 83.9 %
[2017-11-14 03:59] LABS: Calcium 9.4 mg/dL (8.6-10.3); Potassium 5.1 mEq/L (3.5-5.1)
[2017-11-14] MEDS: Ketorolac 15 MG/ML VIAL IVP SCH ×2 (04:38→11:11)
[2017-11-14] MEDS: CeFAZolin Premix DUPLEX 2,000 MG/50 ML BAG IVPB SCH (04:39)
[2017-11-14] MEDS ORDERED: *HR* Heparin 5,000 UNIT/ML VIAL SQ SCH ×2 (06:00)
[2017-11-14] MEDS ORDERED: 0.9 % Sodium Chloride 500 ML IVC ONE (06:36)
--- NOTE | 2017-11-14 06:36 | Discharge Summary ---
Orders not resulted at time of discharge: Pending orders 11/13/17 Red Blood Cells [BBK] Routine 11/13/17 15:49 Surgical Pathology [PTH] Routine Date of Encounter: 11/14/17 Time of Encounter: 06:50 - Discharge Diagnosis (1) Atherosclerosis with claudication of extremity Priority: Primary Status: Chronic Comments: She is postoperative day #1 after a right iliac stent, a femoral endarterectomy and a thrombectomy of her FEM-FEM bypass. Her feet are warm, her incision is healing and her compartments are soft. She will be discharged today. (2) Mixed hyperlipidemia Priority: Secondary Status: Chronic (3) Unspecified essential hypertension Priority: Secondary Status: Chronic (4) Morbid obesity Priority: Secondary Status: Chronic (5) Diabetes mellitus type 2 in obese Priority: Secondary Status: Chronic (6) Tobacco abuse Priority: Secondary Status: Chronic (7) Chronic kidney disease, stage 3 Priority: Secondary Status: Chronic Comments: Adequate urine output. Recieved intravenous fluids with bolus overnight. Creatinine stable. (8) CAD (coronary artery disease) Priority: Secondary Status: Chronic Qualifiers: Coronary Disease-Associated Artery/Lesion type: rampart artery [place] vs. transplanted heart: rampart heart Associated angina: without angina Qualified Code(s): I25.10 - Atherosclerotic heart disease of [place] coronary artery without angina pectoris (9) Anemia, chronic disease Priority: Secondary Status: Chronic Comments: The patient has chronic anemia with acute expected postoperative blood loss anemia. She is hemodynamically stable without evidence of ongoing blood loss. - Hospital Course Hospital course: Ms. Stein is a 62 year old female with a history of peripheral vascular disease. She was admitted on 11/13/17 and underwent a right iliac stent, a femoral endarterectomy and thrombectomy of her femoral to femoral bypass graft. She tolerated the procedure well and was discharged on postoperative day #1 in stable condition without complications. Time spent discussing smoking cessation with patient: 3 to 10 minutes - Time Spent with Patient Total time spent providing and/or coordinating discharge services: - Discharge Medications Prescriptions: OxyCODONE/APAP 5/325 [Percocet 5/325 MG] 1 each PO Q6HR PRN 5 Days #20 tablet PRN Reason: postoperative pain Home Medications: Ergocalciferol (VITAMIN D2) [Vitamin D2 (50,000 UNIT)] 50,000 unit PO PARK [History] FLUoxetine HCl [Prozac] 40 mg PO QPM 12/19/15 [History] Gabapentin [Neurontin] 300 mg PO TID 12/19/15 [History] Levothyroxine [Synthroid] 125 mcg PO DAILY 12/19/15 [History] Metoprolol XL (24 HR) Succ [Toprol Xl] 25 mg PO QPM 12/19/15 [History] Nitroglycerin 0.4 mg SL Q5MIN PRN 12/19/15 [History] Simvastatin [Zocor] 40 mg PO HS 12/19/15 [History] Cholecalciferol (Vitamin D3) [Vitamin D3] 2,000 unit PO DAILY 02/28/16 [History] Aspirin Enteric Coated [Aspirin EC] 81 mg PO DAILY 03/21/16 [History] Clopidogrel [Plavix] 75 mg PO DAILY 03/21/16 [History] Fenofibrate Nanocrystallized [Fenofibrate] 145 mg PO DAILY 09/29/16 [History] Albuterol Sulfate [Proair Hfa] 1 puff IH Q4HR PRN #1 inh 10/04/16 [Rx] ALPRAZolam [Xanax 0.25 MG Tablet] 0.25 mg PO TID PRN #21 tablet 10/07/16 [Rx] Ranitidine HCl [Zantac] 150 mg PO BID 12/25/16 [History] amLODIPine [Norvasc] 5 mg PO QPM 12/25/16 [History] glipiZIDE [Glipizide ER] 10 mg PO BID 12/25/16 [History] Cilostazol [Pletal] 100 mg PO BID 11/13/17 [History] Omeprazole [PriLOSEC] 20 mg PO DAILY 11/13/17 [History] hydrOXYzine pamoate [HydrOXYzine Pamoate] 50 mg PO TID PRN 11/13/17 [History] OxyCODONE/APAP 5/325 [Percocet 5/325 MG] 1 each PO Q6HR PRN 5 Days #20 tablet [Rx] Allergies/Adverse Reactions: 3 Allergy/AdvReac Type Severity Reaction Status Date / Time No Known Allergies Allergy Verified 11/13/17 10:44 Date of admission: 11/13/17 16:38 Primary care physician: Amy Ocampo CNP Procedure(s) Performed: 1. Abdominal aortogram. 2. Right common iliac artery 10 x 37mm stent post dilated with 12 x 40mm balloon. 3. Right common and deep femoral endarterectomy. 4. Right to left femoral to femoral artery bypass graft thrombectomy. Discharging clinician: Ketan Hargrove Anticipated date of discharge: 11/14/17 Exam Vital Signs, Last 4 Hours Temp Pulse Resp BP Pulse Ox 11/14/17 04:05 98.0 F 56 18 120/54 92 General: Present: Conversant Cardiac: Present: Reg Rate and Rhythm, Normal S1 and S2 Lungs: Present: Normal Breath Sounds Neuro: Present: Alert and responsive, No focal deficits noted, Motor nerves grossly intact, Sensory nerves grossly intact Abdomen: Present: Soft, Non-tender Vascular: Present: Normal capillary refill, Pulse, normal (pedal signals polyphasic), Surgical incisions (no hematoma, incision clean, dry and intact). Absent: Cyanosis, Edema Skin: Present: No rashes noted on visualized skin - Patient Status Disposition: Home, Self-Care Condition: Good Functional capacity at discharge: independent ambulation - Discharge Instructions Instructions: Aortofemoral Bypass (DC), Peripheral Vascular Stent Placement (DC ), Peripheral Vascular Stent Placement (GEN), Remote Superficial Femoral Artery Endarterectomy (DC) Follow Up With: Amy Ocampo CNP [Primary Care Provider] - 11/20/17 11:00 am Ketan Hargrove MD [Partnered Physician] - 12/23/17 2:50 pm Additional Instructions: May remove bandage and shower on 11/15/17. Wash wound gently and pat to dry. Apply dry bandage to wound daily for 7 days. No tub baths or swimming until 12/07/17. Call Dr. Hargrove at [phone] with questions or concerns. - Diet and Activity Activity: increase activity as tolerated Diet: advance to your usual diet - VTE Documentation of Mechanical Device: Intermittent pneumatic compression device
[2017-11-14] MEDS: Famotidine 20 MG TABLET PO SCH (07:29)
[2017-11-14] MEDS: Gabapentin 300 MG CAPSULE PO SCH (07:29)
[2017-11-14] MEDS: Insulin LISPRO 300 UNITS/3 ML VIAL SQ SCH (07:51)
[2017-11-14] MEDS ORDERED: Fenofibrate 54 MG TABLET PO SCH (09:00)
[2017-11-14] MEDS ORDERED: Cholecalciferol (D-3) 1,000 UNIT TABLET PO SCH (09:00)
[2017-11-14] MEDS ORDERED: Aspirin Enteric Coated 81 MG Tablet PO SCH (09:00)
[2017-11-14 11:42] VITALS: BP 161/69
[2017-11-14] MEDS ORDERED: Metoprolol XL (24 HR) Succ 25 MG TAB.ER.24H PO SCH (18:00)
== END 2017-11-14 13:15 | disposition home or self-care (01) | DRG 253 ==
LOC: SAMDAY 09:18 → 2NNU 16:38
PROVIDERS: ADMIT Surgery; ATTEND Surgery

== ENCOUNTER 2020-10-12 19:24 | Inpatient (IN) ==
[2020-10-13] MEDS ORDERED: Naloxone 0.4 MG/ML INJ IVP PRN (00:32)
[2020-10-13] MEDS ORDERED: Ipratropium/Albuterol Neb 3 ML IH PRN (00:36)
[2020-10-13] MEDS ORDERED: Nitroglycerin 0.4 MG TAB.SUBL SL PRN ×2 (00:37→15:41)
[2020-10-13] MEDS ORDERED: Perflutren Lipid Microsphere 1.3 ML in 0.9 % Sodium Chloride 8.7 ML IVP PRN (00:37)
[2020-10-13] MEDS ORDERED: D5% in Water 1,000 ML IVC PRN (00:46)
[2020-10-13] MEDS ORDERED: Dextrose Gel 15 GM/37.5 ML TUBE PO PRN ×2 (00:46)
[2020-10-13] MEDS ORDERED: *HR* Dextrose 50 % in Water (Vial) 50 ML VIAL IVP PRN (00:46)
[2020-10-13 02:20] LABS: Basophils # 0.1 K/mcL (0.0-0.2); Eosinophils # 0.9 K/mcL (0.0-0.6); Eosinophils % 13.2 %; Hemoglobin 10.1 g/dL (11.5-15.4); Immature Granulocytes % 0.3 % (0-4); Lymphocytes % 28.4 %; Mean Corpuscular HGB Conc 29.7 g/dL (31.6-35.5); Mean Corpuscular Hemoglobin 22.2 pg (28.0-33.3); Mean Corpuscular Volume 74.9 fL (83.0-100.0); Mean Platelet Volume 10.1 fL (9.4-12.4); Monocytes # 0.8 K/mcL (0.0-1.3); Monocytes % 11.5 %; Neutrophils # 3.3 K/mcL (1.6-8.9); Platelet Count 205 K/mcL (140-400); Red Blood Count 4.54 M/mcL (3.82-4.97); Red Cell Distribution Width 16.7 % (11.5-14.5); Segmented Neutrophils % 45.6 %; White Blood Count 7.1 K/mcL (4.3-11.1)
[2020-10-13] MEDS: Nystatin Cream 15 GM TUBE TP SCH ×4 (02:20→19:32)
[2020-10-13 02:27] LABS: INR 1.2; Prothrombin Time 13.3 Seconds (9.4-12.1)
[2020-10-13 02:40] LABS: Calcium 9.3 mg/dL (8.6-10.3); Chol/HDL Ratio 4.8 (0-4.9); Magnesium 1.6 mg/dL (1.6-2.6)
[2020-10-13] MEDS: *HR* Heparin 5,000 UNIT/ML VIAL SQ SCH ×2 (05:49→17:01)
[2020-10-13] MEDS ORDERED: Aspirin 81 MG TAB.CHEW PO SCH (09:00)
[2020-10-13] MEDS: Insulin LISPRO 300 UNITS/3 ML VIAL SUBQ SCH ×4 (09:58→20:59)
[2020-10-13] MEDS: Furosemide 20 MG/2 ML VIAL IVP SCH ×2 (10:09→17:01)
[2020-10-13] MEDS: Nicotine 21 MG PATCH.TD24 TD SCH (10:10)
[2020-10-13 10:32] LABS: Troponin I < 0.03 ng/mL (< 0.04)
[2020-10-13 10:42] LABS: Thyroid Stimulating Hormone 2.312 mcIU/mL (0.340-5.600)
[2020-10-13 12:01] LABS: Estimated Average Glucose 166 mg/dl; Hemoglobin A1C 7.4 %
[2020-10-13] MEDS: *HR* OxyCODONE/APAP 5/325 TABLET PO PRN ×2 (12:48→19:26)
[2020-10-13] MEDS: predniSONE 20 MG TABLET PO SCH (17:01)
[2020-10-13] MEDS: FLUoxetine 20 MG CAPSULE PO SCH (17:01)
[2020-10-13] MEDS: amLODIPine 5 MG TABLET PO SCH (17:02)
[2020-10-13] MEDS: Pregabalin 50 MG CAPSULE PO SCH ×2 (17:02→19:26)
[2020-10-13] MEDS ORDERED: Nystatin Cream 15 GM TUBE TP PRN (18:15)
[2020-10-13] MEDS: hydrALAZINE 25 MG TABLET PO SCH (19:25)
[2020-10-13] MEDS: hydrOXYzine pamoate 25 MG CAPSULE PO PRN (19:31)
[2020-10-13] MEDS: carvediloL 6.25 MG TABLET PO SCH (19:31)
[2020-10-13] MEDS: Ipratropium/Albuterol Neb 3 ML IH SCH ×2 (20:13→22:37)
[2020-10-13] MEDS: Nystatin POWDER 30 GM BOTTLE TP SCH (22:30)
[2020-10-13] MEDS: Budesonide/Formoterol 160/4.5 1 PUFF INH IH SCH (22:37)
[2020-10-14] MEDS: ALPRAZolam 0.25 MG TABLET PO PRN ×2 (01:31→21:38)
[2020-10-14] MEDS: *HR* Heparin 5,000 UNIT/ML VIAL SQ SCH ×2 (05:38→17:22)
[2020-10-14] MEDS: Ipratropium/Albuterol Neb 3 ML IH SCH ×4 (05:53→22:48)
[2020-10-14 06:34] LABS: Basophils % 0.7 %; Eosinophils % 0.2 %; Hematocrit 33.8 % (35.3-44.9); Hemoglobin 10.3 g/dL (11.5-15.4); Immature Granulocytes % 2.1 % (0-4); Lymphocytes # 1.3 K/mcL (0.6-4.6); Lymphocytes % 21.2 %; Mean Corpuscular HGB Conc 30.5 g/dL (31.6-35.5); Mean Corpuscular Hemoglobin 22.2 pg (28.0-33.3); Mean Platelet Volume 10.9 fL (9.4-12.4); Monocytes # 0.3 K/mcL (0.0-1.3); Neutrophils # 4.4 K/mcL (1.6-8.9); Platelet Count 209 K/mcL (140-400); Red Blood Count 4.63 M/mcL (3.82-4.97); Segmented Neutrophils % 70.8 %; White Blood Count 6.1 K/mcL (4.3-11.1)
[2020-10-14] MEDS: Insulin LISPRO 300 UNITS/3 ML VIAL SUBQ SCH ×4 (07:36→21:31)
[2020-10-14] MEDS: Aspirin Enteric Coated 81 MG Tablet PO SCH (08:06)
[2020-10-14] MEDS: Fenofibrate 54 MG TABLET PO SCH (08:07)
[2020-10-14] MEDS: Cholecalciferol (D-3) 1,000 UNIT (25MCG) TABLET PO SCH (08:08)
[2020-10-14] MEDS: Pregabalin 50 MG CAPSULE PO SCH ×3 (08:08→21:30)
[2020-10-14] MEDS: predniSONE 20 MG TABLET PO SCH (08:08)
[2020-10-14] MEDS: Isosorbide MONOnitrate (24 HR) 30 MG TAB.ER.24H PO SCH (08:08)
[2020-10-14] MEDS: hydrALAZINE 25 MG TABLET PO SCH ×3 (08:08→21:30)
[2020-10-14] MEDS: Nicotine 21 MG PATCH.TD24 TD SCH (08:09)
[2020-10-14] MEDS: Furosemide 20 MG/2 ML VIAL IVP SCH ×2 (08:09→16:25)
[2020-10-14 08:39] LABS: Calcium 9.3 mg/dL (8.6-10.3); Magnesium 1.6 mg/dL (1.6-2.6); Phosphorous 3.3 mg/dL (2.7-4.5); Potassium 4.6 mEq/L (3.5-5.1)
[2020-10-14] MEDS: carvediloL 6.25 MG TABLET PO SCH ×2 (09:40→16:26)
[2020-10-14] MEDS: Nystatin POWDER 30 GM BOTTLE TP SCH ×3 (09:53→21:34)
[2020-10-14] MEDS: Budesonide/Formoterol 160/4.5 1 PUFF INH IH SCH ×2 (09:53→22:48)
[2020-10-14] MEDS: hydrOXYzine pamoate 25 MG CAPSULE PO PRN (10:08)
[2020-10-14] MEDS: Nystatin Cream 15 GM TUBE TP SCH ×3 (10:11→21:35)
[2020-10-14] MEDS: *HR* OxyCODONE/APAP 5/325 TABLET PO PRN ×2 (14:22→21:38)
[2020-10-14 16:03] LABS: ABG Base Excess 2 mEq/L (-2 to 3); ABG HCO3 26 mEq/L (21-27); ABG Oxygen Saturation 92 % (95-98); ABG PCO2 39 mmHg (35-45); ABG PH 7.43 pH Units (7.32-7.45); ABG PO2 63 mmHg (85-104); ABG TCO2 27 mEq/L (20-26)
[2020-10-14] MEDS: Acetaminophen 325 MG TABLET PO SCH ×2 (16:25→21:30)
[2020-10-14] MEDS: FLUoxetine 20 MG CAPSULE PO SCH (17:22)
[2020-10-14] MEDS: amLODIPine 5 MG TABLET PO SCH (17:22)
[2020-10-14] MEDS: Insulin DETEMIR 100 UNIT/ML X5UNITS SUBQ SCH (21:31)
[2020-10-14] MEDS: (Calcifediol [Rayaldee] 30 MCG Cap.Sa.24h) PO SCH (21:47)
[2020-10-15] MEDS: Ipratropium/Albuterol Neb 3 ML IH SCH ×4 (03:32→22:37)
[2020-10-15] MEDS: *HR* Heparin 5,000 UNIT/ML VIAL SQ SCH ×2 (05:15→17:45)
[2020-10-15 06:31] LABS: Calcium 9.3 mg/dL (8.6-10.3); Magnesium 1.8 mg/dL (1.6-2.6); Potassium 4.3 mEq/L (3.5-5.1)
[2020-10-15] MEDS: predniSONE 20 MG TABLET PO SCH (10:03)
[2020-10-15] MEDS: Cholecalciferol (D-3) 1,000 UNIT (25MCG) TABLET PO SCH (10:03)
[2020-10-15] MEDS: carvediloL 6.25 MG TABLET PO SCH ×2 (10:04→17:43)
[2020-10-15] MEDS: Acetaminophen 325 MG TABLET PO SCH ×4 (10:05→20:22)
[2020-10-15] MEDS: *HR* OxyCODONE/APAP 5/325 TABLET PO PRN ×2 (10:05→17:52)
[2020-10-15] MEDS: Aspirin Enteric Coated 81 MG Tablet PO SCH (10:06)
[2020-10-15] MEDS: Isosorbide MONOnitrate (24 HR) 30 MG TAB.ER.24H PO SCH (10:06)
[2020-10-15] MEDS: hydrALAZINE 25 MG TABLET PO SCH ×3 (10:06→20:22)
[2020-10-15] MEDS: Pregabalin 50 MG CAPSULE PO SCH ×3 (10:06→20:23)
[2020-10-15] MEDS: Fenofibrate 54 MG TABLET PO SCH (10:07)
[2020-10-15] MEDS: Furosemide 20 MG/2 ML VIAL IVP SCH ×2 (10:07→17:45)
[2020-10-15] MEDS: Nicotine 21 MG PATCH.TD24 TD SCH (10:07)
[2020-10-15] MEDS: Nystatin Cream 15 GM TUBE TP SCH ×3 (10:08→20:28)
[2020-10-15] MEDS: Insulin LISPRO 300 UNITS/3 ML VIAL SUBQ SCH ×4 (10:08→20:26)
[2020-10-15] MEDS: Nystatin POWDER 30 GM BOTTLE TP SCH ×3 (10:08→20:28)
[2020-10-15] MEDS: Budesonide/Formoterol 160/4.5 1 PUFF INH IH SCH ×2 (11:51→22:37)
[2020-10-15] MEDS ORDERED: Albumin 25% 25gram/100mL 25 GM/100 ML IV.SOLN IVPB ONE (13:05)
[2020-10-15] MEDS: FLUoxetine 20 MG CAPSULE PO SCH (17:45)
[2020-10-15] MEDS: amLODIPine 5 MG TABLET PO SCH (17:45)
[2020-10-15] MEDS: Insulin DETEMIR 100 UNIT/ML X5UNITS SUBQ SCH (20:28)
[2020-10-15] MEDS: (Calcifediol [Rayaldee] 30 MCG Cap.Sa.24h) PO SCH (20:29)
[2020-10-16] MEDS: Ipratropium/Albuterol Neb 3 ML IH SCH ×4 (03:11→22:49)
[2020-10-16 06:32] LABS: Calcium 8.9 mg/dL (8.6-10.3); Magnesium 1.8 mg/dL (1.6-2.6); Phosphorous 3.7 mg/dL (2.7-4.5); Potassium 4.6 mEq/L (3.5-5.1)
[2020-10-16] MEDS: *HR* Heparin 5,000 UNIT/ML VIAL SQ SCH ×2 (06:49→17:55)
[2020-10-16] MEDS ORDERED: Albumin 25% 25gram/100mL 25 GM/100 ML IV.SOLN IVPB ONE (07:20)
[2020-10-16] MEDS ORDERED: metOLazone 5 MG TABLET PO SCH (08:30)
[2020-10-16] MEDS: carvediloL 6.25 MG TABLET PO SCH ×2 (09:53→17:55)
[2020-10-16] MEDS: Acetaminophen 325 MG TABLET PO SCH ×4 (10:03→21:43)
[2020-10-16] MEDS: Nystatin POWDER 30 GM BOTTLE TP SCH ×3 (10:07→21:45)
[2020-10-16] MEDS: Nicotine 21 MG PATCH.TD24 TD SCH (10:07)
[2020-10-16] MEDS: Insulin LISPRO 300 UNITS/3 ML VIAL SUBQ SCH ×7 (10:08→21:51)
[2020-10-16] MEDS: Nystatin Cream 15 GM TUBE TP SCH ×3 (10:08→21:45)
[2020-10-16] MEDS: Insulin DETEMIR 100 UNIT/ML X5UNITS SUBQ SCH ×2 (10:10→21:52)
[2020-10-16] MEDS: hydrALAZINE 25 MG TABLET PO SCH ×3 (10:11→21:44)
[2020-10-16] MEDS: Cholecalciferol (D-3) 1,000 UNIT (25MCG) TABLET PO SCH (10:11)
[2020-10-16] MEDS: Aspirin Enteric Coated 81 MG Tablet PO SCH (10:11)
[2020-10-16] MEDS: *HR* OxyCODONE/APAP 5/325 TABLET PO PRN ×2 (10:11→21:40)
[2020-10-16] MEDS: Isosorbide MONOnitrate (24 HR) 30 MG TAB.ER.24H PO SCH (10:12)
[2020-10-16] MEDS: predniSONE 20 MG TABLET PO SCH (10:12)
[2020-10-16] MEDS: Fenofibrate 54 MG TABLET PO SCH (10:12)
[2020-10-16] MEDS: Pregabalin 50 MG CAPSULE PO SCH (10:12)
[2020-10-16] MEDS: Budesonide/Formoterol 160/4.5 1 PUFF INH IH SCH ×2 (11:01→22:49)
[2020-10-16 14:29] LABS: Uric Acid 11.7 mg/dL (2.3-7.6)
[2020-10-16 17:35] LABS: Bilirubin,Urine Negative (Negative); Blood,Urine Negative (Negative); Clarity,Urine Clear (Clear); Color,Urine Light-Yellow (Yellow); Glucose,Urine (UA) Normal (Normal); Ketones,Urine Negative (Negative); Leukocyte Esterase,Urine Negative (Negative); Mucus,Urine Few per lpf (None-Few); Nitrite,Urine Negative (Negative); Protein,Urine 50 mg/dL (Neg-Trace); Specific Gravity,Urine 1.013 (1.010-1.025); Urobilinogen,Urine Normal (Normal); WBC,Urine 0-3 per hpf (0-3)
[2020-10-16 17:44] LABS: Creatinine,Urine 46 mg/dL
[2020-10-16] MEDS: FLUoxetine 20 MG CAPSULE PO SCH (17:55)
[2020-10-16] MEDS: amLODIPine 5 MG TABLET PO SCH (17:55)
[2020-10-16] MEDS: Pregabalin 75 MG CAPSULE PO SCH (21:44)
[2020-10-17] MEDS: *HR* OxyCODONE/APAP 5/325 TABLET PO PRN ×4 (01:47→21:29)
[2020-10-17] MEDS: ALPRAZolam 0.25 MG TABLET PO PRN ×2 (01:47→21:29)
[2020-10-17] MEDS: Ipratropium/Albuterol Neb 3 ML IH SCH ×4 (03:31→22:52)
[2020-10-17 04:27] LABS: Magnesium 1.9 mg/dL (1.6-2.6); Phosphorous 3.2 mg/dL (2.7-4.5)
[2020-10-17] MEDS: *HR* Heparin 5,000 UNIT/ML VIAL SQ SCH (05:14)
[2020-10-17 07:50] LABS: Calcium 9.4 mg/dL (8.6-10.3); Potassium 4.5 mEq/L (3.5-5.1)
[2020-10-17] MEDS: Fenofibrate 54 MG TABLET PO SCH (09:51)
[2020-10-17] MEDS: Isosorbide MONOnitrate (24 HR) 30 MG TAB.ER.24H PO SCH (09:51)
[2020-10-17] MEDS: predniSONE 20 MG TABLET PO SCH (09:52)
[2020-10-17] MEDS: Aspirin Enteric Coated 81 MG Tablet PO SCH (09:52)
[2020-10-17] MEDS: Pregabalin 75 MG CAPSULE PO SCH ×2 (09:52→21:30)
[2020-10-17] MEDS: carvediloL 6.25 MG TABLET PO SCH (09:52)
[2020-10-17] MEDS: Cholecalciferol (D-3) 1,000 UNIT (25MCG) TABLET PO SCH (09:52)
[2020-10-17] MEDS: Nicotine 21 MG PATCH.TD24 TD SCH (09:53)
[2020-10-17] MEDS: hydrALAZINE 25 MG TABLET PO SCH ×3 (09:53→21:32)
[2020-10-17] MEDS: Insulin DETEMIR 100 UNIT/ML X5UNITS SUBQ SCH ×2 (09:54→21:30)
[2020-10-17] MEDS: Insulin LISPRO 300 UNITS/3 ML VIAL SUBQ SCH ×7 (09:54→21:31)
[2020-10-17] MEDS: Nystatin Cream 15 GM TUBE TP SCH ×3 (09:55→21:32)
[2020-10-17] MEDS: Nystatin POWDER 30 GM BOTTLE TP SCH ×3 (09:55→21:32)
[2020-10-17] MEDS: Acetaminophen 325 MG TABLET PO SCH ×4 (09:55→21:30)
[2020-10-17] MEDS ORDERED: Magnesium Sulfate 1 GM/102 ML PIGGYBACK IVPB ONE (10:05)
[2020-10-17] MEDS: Budesonide/Formoterol 160/4.5 1 PUFF INH IH SCH ×2 (10:29→22:52)
[2020-10-17] MEDS ORDERED: carvediloL 6.25 MG TABLET PO ONE (12:16)
[2020-10-17] MEDS ORDERED: *HR* Heparin 5,000 UNIT/ML VIAL IVP PRN ×2 (12:41)
[2020-10-17] MEDS ORDERED: *HR* Heparin 5,000 UNIT/ML VIAL IVP ONE (12:41)
[2020-10-17 14:04] LABS: Heparin anti-factor XA UFH 0.06 IU/mL (0.30-0.70); INR 1.1
[2020-10-17] MEDS: Furosemide 20 MG/2 ML VIAL IVP SCH (14:09)
[2020-10-17] MEDS: Heparin 25,000UNIT/250ML 1/2NS 25,000 UNIT/250 ML IV.SOLN IVC SCH (14:25)
[2020-10-17 14:28] LABS: Hematocrit 31.4 % (35.3-44.9); Hemoglobin 9.3 g/dL (11.5-15.4); Mean Corpuscular HGB Conc 29.6 g/dL (31.6-35.5); Mean Corpuscular Hemoglobin 21.8 pg (28.0-33.3); Mean Corpuscular Volume 73.5 fL (83.0-100.0); Mean Platelet Volume 11.3 fL (9.4-12.4); Platelet Count 217 K/mcL (140-400); Red Blood Count 4.27 M/mcL (3.82-4.97)
[2020-10-17 14:41] LABS: White Blood Count 13.1 K/mcL (4.3-11.1)
[2020-10-17] MEDS: carvediloL 25 MG TABLET PO SCH (18:02)
[2020-10-17] MEDS: amLODIPine 5 MG TABLET PO SCH (18:02)
[2020-10-17] MEDS: FLUoxetine 20 MG CAPSULE PO SCH (18:02)
[2020-10-17] MEDS ORDERED: Sodium Bicarbonate 75 MEQ in 0.45 % Sodium Chloride 1,000 ML IVC SCH (23:55)
[2020-10-18] MEDS: Ipratropium/Albuterol Neb 3 ML IH SCH ×4 (03:08→22:17)
[2020-10-18 04:35] LABS: Basophils % 0.2 %; Hemoglobin 8.8 g/dL (11.5-15.4); Immature Granulocytes % 1.2 % (0-4); Lymphocytes # 1.1 K/mcL (0.6-4.6); Lymphocytes % 9.2 %; Mean Corpuscular HGB Conc 30.3 g/dL (31.6-35.5); Mean Corpuscular Hemoglobin 22.5 pg (28.0-33.3); Mean Corpuscular Volume 74.2 fL (83.0-100.0); Mean Platelet Volume 11.5 fL (9.4-12.4); Monocytes # 0.8 K/mcL (0.0-1.3); Monocytes % 6.6 %; Platelet Count 176 K/mcL (140-400); Red Blood Count 3.91 M/mcL (3.82-4.97); Red Cell Distribution Width 15.9 % (11.5-14.5); Segmented Neutrophils % 82.8 %; White Blood Count 12.1 K/mcL (4.3-11.1)
[2020-10-18 05:00] LABS: Calcium 9.6 mg/dL (8.6-10.3); Magnesium 1.9 mg/dL (1.6-2.6); Phosphorous 2.9 mg/dL (2.7-4.5); Potassium 4.6 mEq/L (3.5-5.1)
[2020-10-18] MEDS: *HR* OxyCODONE/APAP 5/325 TABLET PO PRN (05:25)
[2020-10-18] MEDS: Insulin LISPRO 300 UNITS/3 ML VIAL SUBQ SCH ×6 (05:38→17:06)
[2020-10-18] MEDS: Cholecalciferol (D-3) 1,000 UNIT (25MCG) TABLET PO SCH (08:15)
[2020-10-18] MEDS: Aspirin Enteric Coated 81 MG Tablet PO SCH (08:15)
[2020-10-18] MEDS: Nicotine 21 MG PATCH.TD24 TD SCH (08:15)
[2020-10-18] MEDS: hydrALAZINE 25 MG TABLET PO SCH ×3 (08:16→20:16)
[2020-10-18] MEDS: carvediloL 25 MG TABLET PO SCH ×2 (08:16→17:07)
[2020-10-18] MEDS: Acetaminophen 325 MG TABLET PO SCH ×4 (08:16→20:15)
[2020-10-18] MEDS: Pregabalin 75 MG CAPSULE PO SCH ×2 (08:16→20:15)
[2020-10-18] MEDS: Isosorbide MONOnitrate (24 HR) 30 MG TAB.ER.24H PO SCH (08:16)
[2020-10-18] MEDS: Insulin DETEMIR 100 UNIT/ML X5UNITS SUBQ SCH ×2 (08:17→20:16)
[2020-10-18] MEDS: Nystatin Cream 15 GM TUBE TP SCH ×3 (08:18→20:18)
[2020-10-18] MEDS: Nystatin POWDER 30 GM BOTTLE TP SCH ×3 (08:18→20:17)
[2020-10-18] MEDS ORDERED: predniSONE 10 MG TABLET PO SCH (09:00)
[2020-10-18] MEDS: Budesonide/Formoterol 160/4.5 1 PUFF INH IH SCH ×2 (11:21→22:17)
[2020-10-18] MEDS: Heparin 25,000UNIT/250ML 1/2NS 25,000 UNIT/250 ML IV.SOLN IVC SCH (12:41)
[2020-10-18] MEDS: amLODIPine 5 MG TABLET PO SCH (17:07)
[2020-10-18] MEDS: FLUoxetine 20 MG CAPSULE PO SCH (17:07)
[2020-10-18] MEDS: *HR* Acetylcysteine 20% 600 MG/3 ML ORAL SYRINGE PO SCH (20:17)
[2020-10-18] MEDS: ALPRAZolam 0.25 MG TABLET PO PRN (20:30)
[2020-10-19] MEDS: *HR* OxyCODONE/APAP 5/325 TABLET PO PRN ×2 (02:05→20:50)
[2020-10-19] MEDS: hydrOXYzine pamoate 25 MG CAPSULE PO PRN ×2 (02:05→20:50)
[2020-10-19] MEDS: Ipratropium/Albuterol Neb 3 ML IH SCH ×4 (03:30→22:05)
[2020-10-19] MEDS: Insulin LISPRO 300 UNITS/3 ML VIAL SUBQ SCH ×7 (03:35→17:33)
[2020-10-19 05:29] LABS: Basophils % 0.3 %; Eosinophils # 0.1 K/mcL (0.0-0.6); Eosinophils % 0.5 %; Hematocrit 29.3 % (35.3-44.9); Hemoglobin 8.9 g/dL (11.5-15.4); Immature Granulocytes % 1.5 % (0-4); Lymphocytes # 1.9 K/mcL (0.6-4.6); Lymphocytes % 14.8 %; Mean Corpuscular HGB Conc 30.4 g/dL (31.6-35.5); Mean Corpuscular Hemoglobin 22.6 pg (28.0-33.3); Mean Corpuscular Volume 74.6 fL (83.0-100.0); Mean Platelet Volume 11.3 fL (9.4-12.4); Monocytes # 1.1 K/mcL (0.0-1.3); Monocytes % 8.1 %; Neutrophils # 9.8 K/mcL (1.6-8.9); Platelet Count 165 K/mcL (140-400); Red Blood Count 3.93 M/mcL (3.82-4.97); Red Cell Distribution Width 15.9 % (11.5-14.5); Segmented Neutrophils % 74.8 %; White Blood Count 13.1 K/mcL (4.3-11.1)
[2020-10-19 05:48] LABS: Calcium 9.7 mg/dL (8.6-10.3); Magnesium 1.9 mg/dL (1.6-2.6); Phosphorous 2.9 mg/dL (2.7-4.5); Potassium 4.3 mEq/L (3.5-5.1)
[2020-10-19] MEDS ORDERED: Sodium Bicarbonate 75 MEQ in 0.45 % Sodium Chloride 1,000 ML IVC SCH (06:00)
[2020-10-19 06:37] LABS: Folate 6.9 ng/mL (3.0-16.0)
[2020-10-19] MEDS ORDERED: Cyanocobalamin (B-12) 1,000 MCG/ML VIAL SQ ONE (07:54)
[2020-10-19] MEDS ORDERED: predniSONE 20 MG TABLET PO SCH (09:00)
[2020-10-19] MEDS: Cholecalciferol (D-3) 1,000 UNIT (25MCG) TABLET PO SCH (09:11)
[2020-10-19] MEDS: Isosorbide MONOnitrate (24 HR) 30 MG TAB.ER.24H PO SCH (09:11)
[2020-10-19] MEDS: hydrALAZINE 25 MG TABLET PO SCH ×3 (09:11→20:51)
[2020-10-19] MEDS: Nicotine 21 MG PATCH.TD24 TD SCH (09:12)
[2020-10-19] MEDS: Aspirin Enteric Coated 81 MG Tablet PO SCH (09:12)
[2020-10-19] MEDS: Pregabalin 75 MG CAPSULE PO SCH ×2 (09:12→20:50)
[2020-10-19] MEDS: Acetaminophen 325 MG TABLET PO SCH ×4 (09:12→20:51)
[2020-10-19] MEDS: carvediloL 25 MG TABLET PO SCH ×2 (09:13→17:31)
[2020-10-19] MEDS: Nystatin Cream 15 GM TUBE TP SCH ×3 (09:15→20:52)
[2020-10-19] MEDS: Nystatin POWDER 30 GM BOTTLE TP SCH ×3 (09:15→20:52)
[2020-10-19] MEDS: Insulin DETEMIR 100 UNIT/ML X5UNITS SUBQ SCH ×2 (09:19→20:51)
[2020-10-19] MEDS: *HR* Acetylcysteine 20% 600 MG/3 ML ORAL SYRINGE PO SCH ×2 (10:04→20:52)
[2020-10-19] MEDS: Budesonide/Formoterol 160/4.5 1 PUFF INH IH SCH ×2 (10:22→22:05)
[2020-10-19] MEDS: Heparin 25,000UNIT/250ML 1/2NS 25,000 UNIT/250 ML IV.SOLN IVC SCH (13:12)
[2020-10-19] MEDS: Sodium Bicarbonate 150 MEQ in D5% in Water 1,000 ML IVC SCH (13:19)
[2020-10-19] MEDS ORDERED: Ipratropium/Albuterol Neb 3 ML ONE (15:44)
[2020-10-19] MEDS: FLUoxetine 20 MG CAPSULE PO SCH (17:30)
[2020-10-19] MEDS: amLODIPine 5 MG TABLET PO SCH (17:31)
[2020-10-19] MEDS: ALPRAZolam 0.25 MG TABLET PO PRN (20:51)
[2020-10-20] MEDS: Insulin LISPRO 300 UNITS/3 ML VIAL SUBQ SCH ×5 (01:56→11:50)
[2020-10-20] MEDS: Sodium Bicarbonate 150 MEQ in D5% in Water 1,000 ML IVC SCH (03:24)
[2020-10-20 03:30] LABS: Basophils # 0.1 K/mcL (0.0-0.2); Basophils % 0.5 %; Eosinophils # 0.1 K/mcL (0.0-0.6); Eosinophils % 0.6 %; Hematocrit 28.2 % (35.3-44.9); Hemoglobin 8.5 g/dL (11.5-15.4); Immature Granulocytes % 1.7 % (0-4); Lymphocytes # 1.5 K/mcL (0.6-4.6); Lymphocytes % 11.9 %; Mean Corpuscular HGB Conc 30.1 g/dL (31.6-35.5); Mean Corpuscular Hemoglobin 22.4 pg (28.0-33.3); Mean Corpuscular Volume 74.4 fL (83.0-100.0); Mean Platelet Volume 11.7 fL (9.4-12.4); Monocytes % 7.5 %; Neutrophils # 9.8 K/mcL (1.6-8.9); Platelet Count 157 K/mcL (140-400); Red Blood Count 3.79 M/mcL (3.82-4.97); Segmented Neutrophils % 77.8 %; White Blood Count 12.6 K/mcL (4.3-11.1)
[2020-10-20 03:44] LABS: Calcium 9.4 mg/dL (8.6-10.3); Magnesium 2.3 mg/dL (1.6-2.6); Potassium 4.3 mEq/L (3.5-5.1)
[2020-10-20] MEDS: Ipratropium/Albuterol Neb 3 ML IH SCH ×3 (03:52→15:29)
[2020-10-20] MEDS: Cholecalciferol (D-3) 1,000 UNIT (25MCG) TABLET PO SCH (07:58)
[2020-10-20] MEDS: hydrALAZINE 25 MG TABLET PO SCH ×2 (07:58→16:07)
[2020-10-20] MEDS: Pregabalin 75 MG CAPSULE PO SCH (07:58)
[2020-10-20] MEDS: Isosorbide MONOnitrate (24 HR) 30 MG TAB.ER.24H PO SCH (07:58)
[2020-10-20] MEDS: Acetaminophen 325 MG TABLET PO SCH ×3 (07:58→16:07)
[2020-10-20] MEDS: Nicotine 21 MG PATCH.TD24 TD SCH (07:59)
[2020-10-20] MEDS: Aspirin Enteric Coated 81 MG Tablet PO SCH (07:59)
[2020-10-20] MEDS: Nystatin Cream 15 GM TUBE TP SCH ×2 (07:59→16:35)
[2020-10-20] MEDS: carvediloL 25 MG TABLET PO SCH ×2 (07:59→16:07)
[2020-10-20] MEDS: Insulin DETEMIR 100 UNIT/ML X5UNITS SUBQ SCH (08:00)
[2020-10-20] MEDS: Heparin 25,000UNIT/250ML 1/2NS 25,000 UNIT/250 ML IV.SOLN IVC SCH ×2 (08:29→12:01)
[2020-10-20] MEDS: Nystatin POWDER 30 GM BOTTLE TP SCH ×2 (08:33→16:35)
[2020-10-20] MEDS ORDERED: amLODIPine 5 MG TABLET PO SCH (09:00)
[2020-10-20] MEDS ORDERED: predniSONE 10 MG TABLET PO SCH (09:00)
[2020-10-20] MEDS: *HR* Acetylcysteine 20% 600 MG/3 ML ORAL SYRINGE PO SCH (09:28)
[2020-10-20] MEDS ORDERED: Ferumoxytol 510 MG in 0.9 % Sodium Chloride 100 ML IVPB ONE (10:57)
[2020-10-20] MEDS: Budesonide/Formoterol 160/4.5 1 PUFF INH IH SCH (11:04)
[2020-10-20 14:46] VITALS: BP 107/61
[2020-10-20] MEDS: *HR* OxyCODONE/APAP 5/325 TABLET PO PRN (16:51)
[2020-10-21] MEDS ORDERED: Isosorbide MONOnitrate (24 HR) 60 MG TAB.ER.24H PO SCH (09:00)
== END 2020-10-20 16:45 | disposition home health service (06) | DRG 280 ==
LOC: 3ANU → SUATTDRO 23:05
PROVIDERS: ADMIT Internal Medicine; ATTEND Pharmacist

== ENCOUNTER 2021-04-17 12:00 | Observation (INO) ==
[2021-04-17] MEDS ORDERED: Ondansetron 4 MG/2 ML VIAL IVP PRN (16:15)
[2021-04-17] MEDS ORDERED: Melatonin 3 MG TABLET PO PRN (16:15)
[2021-04-17] MEDS ORDERED: Naloxone 0.4 MG/ML INJ IVP PRN (16:15)
[2021-04-17] MEDS ORDERED: *HR* Labetalol 20 MG/4 ML SYRINGE IVP PRN (16:18)
[2021-04-17] MEDS ORDERED: *HR* Dextrose 50 % in Water (Vial) 50 ML VIAL IVP PRN (16:34)
[2021-04-17] MEDS ORDERED: Dextrose Gel 15 GM/37.5 ML TUBE PO PRN ×2 (16:34)
[2021-04-17] MEDS ORDERED: D5% in Water 1,000 ML IVC PRN (16:34)
[2021-04-17] MEDS ORDERED: Ipratropium/Albuterol Neb 3 ML IH PRN (17:10)
[2021-04-17] MEDS ORDERED: Azithromycin 500 MG in 0.9 % Sodium Chloride 250 ML IVPB ONE (17:53)
[2021-04-17 21:36] LABS: Adenovirus Not Detected (Not Detect); Bordetella Pertussis Not Detected (Not Detect); Chlamydophila pneumoniae Not Detected (Not Detect); Coronavirus 229E Not Detected (Not Detect); Coronavirus HKU1 Not Detected (Not Detect); Coronavirus NL63 Not Detected (Not Detect); Coronavirus OC43 Not Detected (Not Detect); Human Metapneumovirus Not Detected (Not Detect); Human Rhinovirus/Enterovirus Not Detected (Not Detect); Influenza A Subtype 2009 H1 Not Detected (Not Detect); Influenza B Not Detected (Not Detect); Mycoplasma pneumoniae Not Detected (Not Detect); Parainfluenza Virus 1 Not Detected (Not Detect); Parainfluenza Virus 2 Not Detected (Not Detect); Parainfluenza Virus 3 Not Detected (Not Detect); Parainfluenza Virus 4 Not Detected (Not Detect); Respiratory Syncytial Virus Not Detected (Not Detect); SARS-CoV-2 Not Detected (Not Detect)
[2021-04-17] MEDS: Insulin LISPRO 300 UNITS/3 ML VIAL SUBQ SCH (22:15)
[2021-04-18 01:49] LABS: Basophils # 0.1 K/mcL (0.0-0.2); Basophils % 0.9 %; Eosinophils # 0.6 K/mcL (0.0-0.6); Eosinophils % 7.2 %; Hematocrit 36.3 % (35.3-44.9); Hemoglobin 11.5 g/dL (11.5-15.4); Immature Granulocytes % 0.7 % (0-4); Lymphocytes # 2.1 K/mcL (0.6-4.6); Mean Corpuscular HGB Conc 31.7 g/dL (31.6-35.5); Mean Corpuscular Hemoglobin 26.1 pg (28.0-33.3); Mean Corpuscular Volume 82.3 fL (83.0-100.0); Monocytes % 12.1 %; Neutrophils # 4.7 K/mcL (1.6-8.9); Platelet Count 155 K/mcL (140-400); Red Blood Count 4.41 M/mcL (3.82-4.97); Red Cell Distribution Width 14.6 % (11.5-14.5); Segmented Neutrophils % 55.1 %; White Blood Count 8.6 K/mcL (4.3-11.1)
[2021-04-18 01:53] LABS: INR 1.1; Prothrombin Time 12.2 Seconds (9.4-12.1)
[2021-04-18 02:07] LABS: Estimated Average Glucose 174 mg/dl; Hemoglobin A1C 7.7 %
[2021-04-18 02:20] LABS: Thyroid Stimulating Hormone 1.742 mcIU/mL (0.340-5.600)
[2021-04-18 02:29] LABS: Folate 8.5 ng/mL (3.0-16.0)
[2021-04-18 02:41] LABS: Albumin 3.1 g/dL (3.5-5.7); Albumin/Globulin Ratio 1.1 (1.1-2.2); Bilirubin,Total 0.3 mg/dL (0.3-1.0); Calcium 9.3 mg/dL (8.6-10.3); Chol/HDL Ratio 3.9 (0-4.9); Globulin 2.8 g/dL (2.4-3.5); Magnesium 1.6 mg/dL (1.6-2.6); Phosphorous 3.4 mg/dL (2.7-4.5); Potassium 4.2 mEq/L (3.5-5.1); Total Protein 5.9 g/dL (6.4-8.9)
[2021-04-18] MEDS: Insulin LISPRO 300 UNITS/3 ML VIAL SUBQ SCH ×4 (05:39→20:23)
[2021-04-18] MEDS: Aspirin Enteric Coated 81 MG Tablet PO SCH (09:22)
[2021-04-18] MEDS: Acetaminophen 325 MG TABLET PO PRN ×2 (09:22→15:31)
[2021-04-18] MEDS ORDERED: ALPRAZolam 0.25 MG TABLET PO PRN (12:08)
[2021-04-18] MEDS: *HR* OxyCODONE/APAP 5/325 TABLET PO PRN (12:34)
[2021-04-18] MEDS: hydrALAZINE 25 MG TABLET PO SCH ×2 (15:28→20:07)
[2021-04-18] MEDS: hydrOXYzine pamoate 25 MG CAPSULE PO PRN ×2 (15:33→23:55)
[2021-04-18] MEDS: FLUoxetine 20 MG CAPSULE PO SCH (17:33)
[2021-04-18] MEDS: carvediloL 6.25 MG TABLET PO SCH (17:34)
[2021-04-18] MEDS: Nystatin Cream 15 GM TUBE TP SCH (20:08)
[2021-04-18] MEDS: Budesonide/Formoterol 160/4.5 1 PUFF INH IH SCH (20:40)
[2021-04-19 07:48] LABS: Hematocrit 33.5 % (35.3-44.9); Hemoglobin 10.6 g/dL (11.5-15.4); Mean Corpuscular HGB Conc 31.6 g/dL (31.6-35.5); Mean Corpuscular Volume 82.3 fL (83.0-100.0); Mean Platelet Volume 11.3 fL (9.4-12.4); Platelet Count 158 K/mcL (140-400); Red Blood Count 4.07 M/mcL (3.82-4.97); Red Cell Distribution Width 14.8 % (11.5-14.5); White Blood Count 7.9 K/mcL (4.3-11.1)
[2021-04-19] MEDS: Insulin LISPRO 300 UNITS/3 ML VIAL SUBQ SCH ×4 (07:48→19:42)
[2021-04-19] MEDS: Budesonide/Formoterol 160/4.5 1 PUFF INH IH SCH ×2 (07:53→20:19)
[2021-04-19] MEDS: hydrALAZINE 25 MG TABLET PO SCH ×3 (08:16→21:44)
[2021-04-19] MEDS: carvediloL 6.25 MG TABLET PO SCH ×2 (08:17→18:06)
[2021-04-19] MEDS: Aspirin Enteric Coated 81 MG Tablet PO SCH (08:17)
[2021-04-19] MEDS: Nystatin Cream 15 GM TUBE TP SCH ×2 (08:18→22:40)
[2021-04-19 08:33] LABS: Calcium 9.2 mg/dL (8.6-10.3); Potassium 4.1 mEq/L (3.5-5.1)
[2021-04-19] MEDS ORDERED: NON-FORMULARY MEDICATION 1 EACH EACH (Losartan Potassium [Cozaar] 100 MG Tablet) PO SCH (09:00)
[2021-04-19] MEDS ORDERED: Isosorbide MONOnitrate (24 HR) 60 MG TAB.ER.24H PO SCH (09:00)
[2021-04-19] MEDS: hydrOXYzine pamoate 25 MG CAPSULE PO PRN (18:06)
[2021-04-19] MEDS: FLUoxetine 20 MG CAPSULE PO SCH (18:06)
[2021-04-19 18:09] LABS: Bilirubin,Urine Negative (Negative); Blood,Urine Small (Negative); Clarity,Urine Clear (Clear); Color,Urine Light-Yellow (Yellow); Glucose,Urine (UA) Normal (Normal); Ketones,Urine Negative (Negative); Leukocyte Esterase,Urine Negative (Negative); Nitrite,Urine Negative (Negative); Protein,Urine 70 mg/dL (Neg-Trace); RBC,Urine 15-30 per hpf (0-3); Squamous Epithelial Cell,Urine Few per hpf (None-Few); Urobilinogen,Urine Normal (Normal)
[2021-04-19 18:19] LABS: Amphetamine Screen,Urine Negative ng/mL (Cutoff=1000); Barbiturate Screen,Urine Negative ng/mL (Cutoff=200); Benzodiazepines Screen,Urine Positive ng/mL (Cutoff=200); Cannabinoid Screen,Urine Negative ng/mL (Cutoff = 50); Cocaine Screen,Urine Negative ng/mL (Cutoff= 300); Opiate Screen,Urine Negative ng/mL (Cutoff=300); Phencyclidine Screen,Urine Negative ng/mL (Cutoff=25)
[2021-04-19 19:27] VITALS: BP 137/72; PULSE 59; TEMP 97.7
[2021-04-19 20:21] VITALS: O2SAT 97
[2021-04-19] MEDS: *HR* OxyCODONE/APAP 5/325 TABLET PO PRN (21:44)
== END 2021-04-19 22:35 ==
LOC: 3BNU
PROVIDERS: ADMIT Internal Medicine; ATTEND Internal Medicine

== ENCOUNTER 2021-08-18 00:42 | Observation (INO) ==
[2021-08-18] MEDS ORDERED: Naloxone 0.4 MG/ML INJ IVP PRN (04:22)
[2021-08-18] MEDS ORDERED: Perflutren Lipid Microsphere 1.3 ML in 0.9 % Sodium Chloride 8.7 ML IVP PRN (04:26)
[2021-08-18] MEDS ORDERED: Nicotine 2 MG GUM BC PRN (04:48)
[2021-08-18] MEDS: Aspirin 81 MG TAB.CHEW PO SCH (05:16)
[2021-08-18 06:05] LABS: Albumin 3.2 g/dL (3.5-5.7); Bilirubin,Total 0.3 mg/dL (0.3-1.0); Calcium 9.3 mg/dL (8.6-10.3); Chol/HDL Ratio 3.4 (0-4.9); Globulin 3.3 g/dL (2.4-3.5); Potassium 4.3 mEq/L (3.5-5.1); Total Protein 6.5 g/dL (6.4-8.9)
[2021-08-18 06:16] LABS: Thyroid Stimulating Hormone 2.217 mcIU/mL (0.340-5.600)
[2021-08-18 06:27] LABS: Folate 8.2 ng/mL (3.0-16.0)
[2021-08-18 06:28] LABS: Prothrombin Time 11.5 Seconds (9.4-12.1)
[2021-08-18] MEDS: Budesonide/Formoterol 160/4.5 1 PUFF INH IH SCH ×2 (07:23→20:51)
[2021-08-18] MEDS ORDERED: Ipratropium/Albuterol Neb 3 ML IH PRN (07:33)
[2021-08-18] MEDS: Isosorbide MONOnitrate (24 HR) 60 MG TAB.ER.24H PO SCH (07:49)
[2021-08-18] MEDS: Acetaminophen 325 MG TABLET PO PRN (07:49)
[2021-08-18] MEDS: Cyanocobalamin (B-12) 1,000 MCG TABLET PO SCH (07:49)
[2021-08-18] MEDS: Insulin LISPRO 300 UNITS/3 ML VIAL SUBQ SCH ×3 (12:15→20:17)
[2021-08-18 14:52] LABS: Estimated Average Glucose 134 mg/dl; Hemoglobin A1C 6.3 %
[2021-08-18] MEDS: *HR* Heparin 5,000 UNIT/ML VIAL SQ SCH (18:19)
[2021-08-18] MEDS: ALPRAZolam 0.25 MG TABLET PO SCH (21:00)
[2021-08-18] MEDS: Pregabalin 50 MG CAPSULE PO SCH (21:00)
[2021-08-18] MEDS: hydrALAZINE 25 MG TABLET PO SCH (21:01)
[2021-08-18] MEDS: hydrOXYzine pamoate 25 MG CAPSULE PO PRN (21:01)
[2021-08-19] MEDS: Nystatin POWDER 30 GM BOTTLE TP SCH ×4 (00:15→20:39)
[2021-08-19] MEDS: *HR* Heparin 5,000 UNIT/ML VIAL SQ SCH ×2 (05:14→17:02)
[2021-08-19 05:24] LABS: Basophils # 0.1 K/mcL (0.0-0.2); Basophils % 0.8 %; Eosinophils # 0.6 K/mcL (0.0-0.6); Eosinophils % 6.3 %; Hematocrit 33.3 % (35.3-44.9); Hemoglobin 10.4 g/dL (11.5-15.4); Immature Granulocytes % 0.8 % (0-4); Lymphocytes # 1.7 K/mcL (0.6-4.6); Lymphocytes % 19.6 %; Mean Corpuscular HGB Conc 31.2 g/dL (31.6-35.5); Mean Corpuscular Volume 83.3 fL (83.0-100.0); Mean Platelet Volume 11.2 fL (9.4-12.4); Neutrophils # 5.4 K/mcL (1.6-8.9); Platelet Count 186 K/mcL (140-400); Red Cell Distribution Width 15.5 % (11.5-14.5); Segmented Neutrophils % 61.5 %; White Blood Count 8.8 K/mcL (4.3-11.1)
[2021-08-19 05:39] LABS: Albumin 2.8 g/dL (3.5-5.7); Albumin/Globulin Ratio 0.9 (1.1-2.2); Bilirubin,Total 0.3 mg/dL (0.3-1.0); Potassium 4.6 mEq/L (3.5-5.1); Total Protein 5.8 g/dL (6.4-8.9)
[2021-08-19] MEDS: Insulin LISPRO 300 UNITS/3 ML VIAL SUBQ SCH ×4 (08:05→20:26)
[2021-08-19] MEDS: Cyanocobalamin (B-12) 1,000 MCG TABLET PO SCH (08:21)
[2021-08-19] MEDS: Aspirin 81 MG TAB.CHEW PO SCH (08:21)
[2021-08-19] MEDS: Pregabalin 50 MG CAPSULE PO SCH ×3 (08:22→20:39)
[2021-08-19] MEDS: hydrALAZINE 25 MG TABLET PO SCH ×3 (08:22→20:39)
[2021-08-19] MEDS: Isosorbide MONOnitrate (24 HR) 60 MG TAB.ER.24H PO SCH (08:22)
[2021-08-19] MEDS: Budesonide/Formoterol 160/4.5 1 PUFF INH IH SCH ×2 (09:51→20:00)
[2021-08-19] MEDS: Furosemide 20 MG TABLET PO SCH (12:14)
[2021-08-19] MEDS ORDERED: Cyanocobalamin (B-12) 1,000 MCG/ML VIAL IM ONE (16:01)
[2021-08-19] MEDS: carvediloL 6.25 MG TABLET PO SCH (16:56)
[2021-08-19] MEDS ORDERED: FLUoxetine 20 MG CAPSULE PO SCH (18:00)
[2021-08-19] MEDS: ALPRAZolam 0.25 MG TABLET PO SCH (20:39)
[2021-08-19] MEDS: Acetaminophen 325 MG TABLET PO PRN (20:40)
[2021-08-19] MEDS: hydrOXYzine pamoate 25 MG CAPSULE PO PRN (20:40)
[2021-08-20 01:01] LABS: Basophils # 0.1 K/mcL (0.0-0.2); Basophils % 0.8 %; Eosinophils # 0.5 K/mcL (0.0-0.6); Eosinophils % 5.6 %; Hematocrit 32.5 % (35.3-44.9); Hemoglobin 9.9 g/dL (11.5-15.4); Immature Granulocytes % 0.9 % (0-4); Lymphocytes # 1.5 K/mcL (0.6-4.6); Lymphocytes % 16.4 %; Mean Corpuscular HGB Conc 30.5 g/dL (31.6-35.5); Mean Corpuscular Hemoglobin 25.1 pg (28.0-33.3); Mean Corpuscular Volume 82.5 fL (83.0-100.0); Mean Platelet Volume 11.4 fL (9.4-12.4); Monocytes # 0.9 K/mcL (0.0-1.3); Monocytes % 9.6 %; Neutrophils # 6.1 K/mcL (1.6-8.9); Platelet Count 204 K/mcL (140-400); Red Blood Count 3.94 M/mcL (3.82-4.97); Red Cell Distribution Width 15.3 % (11.5-14.5); Segmented Neutrophils % 66.7 %; White Blood Count 9.1 K/mcL (4.3-11.1)
[2021-08-20 01:22] LABS: Albumin 2.9 g/dL (3.5-5.7); Bilirubin,Total 0.3 mg/dL (0.3-1.0); Potassium 4.8 mEq/L (3.5-5.1); Total Protein 5.9 g/dL (6.4-8.9)
[2021-08-20 03:40] VITALS: BP 114/62; PULSE 56; TEMP 97.7
[2021-08-20] MEDS: *HR* Heparin 5,000 UNIT/ML VIAL SQ SCH (05:03)
[2021-08-20] MEDS: Pregabalin 50 MG CAPSULE PO SCH (08:35)
[2021-08-20] MEDS: Furosemide 20 MG TABLET PO SCH (08:35)
[2021-08-20] MEDS: carvediloL 6.25 MG TABLET PO SCH (08:36)
[2021-08-20] MEDS: hydrALAZINE 25 MG TABLET PO SCH (08:36)
[2021-08-20] MEDS: Isosorbide MONOnitrate (24 HR) 60 MG TAB.ER.24H PO SCH (08:37)
[2021-08-20] MEDS: Aspirin 81 MG TAB.CHEW PO SCH (08:37)
[2021-08-20] MEDS: Cyanocobalamin (B-12) 1,000 MCG TABLET PO SCH (08:37)
[2021-08-20] MEDS ORDERED: NON-FORMULARY MEDICATION 1 EACH EACH (Losartan Potassium [Cozaar] 100 MG Tablet) PO SCH (09:00)
[2021-08-20] MEDS: Insulin LISPRO 300 UNITS/3 ML VIAL SUBQ SCH ×2 (09:17→12:27)
[2021-08-20] MEDS: Nystatin POWDER 30 GM BOTTLE TP SCH (09:17)
[2021-08-20] MEDS ORDERED: *HR* OxyCODONE/APAP 5/325 TABLET PO PRN (09:27)
[2021-08-20] MEDS ORDERED: calcitrioL 0.25 MCG CAPSULE PO SCH (10:19)
[2021-08-20] MEDS: Budesonide/Formoterol 160/4.5 1 PUFF INH IH SCH (11:01)
[2021-08-20 11:43] VITALS: O2SAT 93
== END 2021-08-20 14:20 | disposition home health service (06) ==
LOC: 3BNU → SUATTDRO 03:09
PROVIDERS: ADMIT Internal Medicine; ATTEND Registered Nurse

== ENCOUNTER 2021-09-03 15:35 | Observation (INO) ==
[2021-09-03] MEDS ORDERED: Naloxone 0.4 MG/ML INJ IVP PRN (18:50)
[2021-09-03] MEDS ORDERED: D5% in Water 1,000 ML IVC PRN (20:16)
[2021-09-03] MEDS ORDERED: Dextrose Gel 15 GM/37.5 ML TUBE PO PRN ×2 (20:16)
[2021-09-03] MEDS ORDERED: *HR* Dextrose 50 % in Water (Syg) 50 ML SYRINGE IVP PRN (20:16)
[2021-09-03] MEDS ORDERED: Benzonatate 100 MG CAPSULE PO PRN (20:20)
[2021-09-03] MEDS: Insulin LISPRO 300 UNITS/3 ML VIAL SUBQ SCH (21:05)
[2021-09-03] MEDS ORDERED: hydrOXYzine pamoate 25 MG CAPSULE PO PRN (21:15)
[2021-09-03] MEDS: FLUoxetine 20 MG CAPSULE PO SCH (21:50)
[2021-09-03] MEDS: carvediloL 6.25 MG TABLET PO SCH (21:50)
[2021-09-03] MEDS: calcitrioL 0.25 MCG CAPSULE PO SCH (21:50)
[2021-09-03] MEDS: ALPRAZolam 0.25 MG TABLET PO SCH (21:50)
[2021-09-03] MEDS: *HR* Heparin 5,000 UNIT/ML VIAL SQ SCH (21:50)
[2021-09-03] MEDS: *HR* OxyCODONE/APAP 5/325 TABLET PO PRN (21:51)
[2021-09-03] MEDS: Ipratropium 1 PUFF INHALER IH SCH (23:30)
[2021-09-04] MEDS: Ipratropium 1 PUFF INHALER IH SCH ×6 (03:36→23:36)
[2021-09-04] MEDS: *HR* Heparin 5,000 UNIT/ML VIAL SQ SCH ×3 (05:08→22:28)
[2021-09-04 08:53] LABS: Basophils % 0.5 %; Hematocrit 36.7 % (35.3-44.9); Hemoglobin 11.1 g/dL (11.5-15.4); Immature Granulocytes % 0.5 % (0-4); Lymphocytes # 0.6 K/mcL (0.6-4.6); Mean Corpuscular HGB Conc 30.2 g/dL (31.6-35.5); Mean Corpuscular Hemoglobin 25.1 pg (28.0-33.3); Mean Platelet Volume 11.2 fL (9.4-12.4); Monocytes # 0.8 K/mcL (0.0-1.3); Monocytes % 20.1 %; Platelet Count 230 K/mcL (140-400); Red Blood Count 4.42 M/mcL (3.82-4.97); Red Cell Distribution Width 15.2 % (11.5-14.5); Segmented Neutrophils % 64.9 %; White Blood Count 3.9 K/mcL (4.3-11.1)
[2021-09-04] MEDS ORDERED: Pregabalin 50 MG CAPSULE PO SCH (09:00)
[2021-09-04 09:05] LABS: Neutrophils # 2.5 K/mcL (1.6-8.9)
[2021-09-04] MEDS ORDERED: Nitroglycerin 0.4 MG TAB.SUBL SL PRN (09:09)
[2021-09-04 09:12] LABS: Albumin 3.2 g/dL (3.5-5.7); Albumin/Globulin Ratio 0.9 (1.1-2.2); Bilirubin,Direct 0.1 mg/dL (0.0-0.2); Bilirubin,Indirect 0.1 mg/dL (0.0-1.0); Bilirubin,Total 0.2 mg/dL (0.3-1.0); Calcium 8.9 mg/dL (8.6-10.3); Globulin 3.4 g/dL (2.4-3.5); Potassium 5.2 mEq/L (3.5-5.1); Total Protein 6.6 g/dL (6.4-8.9)
[2021-09-04] MEDS: Insulin LISPRO 300 UNITS/3 ML VIAL SUBQ SCH ×4 (09:30→22:27)
[2021-09-04] MEDS: carvediloL 6.25 MG TABLET PO SCH ×2 (09:34→17:21)
[2021-09-04] MEDS: Aspirin Enteric Coated 81 MG Tablet PO SCH (09:34)
[2021-09-04] MEDS: Nystatin POWDER 30 GM BOTTLE TP SCH ×2 (09:35→22:29)
[2021-09-04] MEDS: Furosemide 20 MG TABLET PO SCH (09:35)
[2021-09-04] MEDS: *HR* OxyCODONE/APAP 5/325 TABLET PO PRN ×2 (09:41→17:21)
[2021-09-04] MEDS: Budesonide/Formoterol 160/4.5 1 PUFF INH IH SCH ×2 (11:05→20:19)
[2021-09-04] MEDS: hydrALAZINE 25 MG TABLET PO SCH ×2 (17:20→22:25)
[2021-09-04] MEDS: FLUoxetine 20 MG CAPSULE PO SCH (17:20)
[2021-09-04] MEDS: Pregabalin 50 MG CAPSULE PO SCH ×2 (17:21→22:25)
[2021-09-04] MEDS: ALPRAZolam 0.25 MG TABLET PO SCH (22:24)
[2021-09-05] MEDS: *HR* OxyCODONE/APAP 5/325 TABLET PO PRN ×2 (00:19→18:34)
[2021-09-05] MEDS: Ipratropium 1 PUFF INHALER IH SCH ×7 (03:28→23:38)
[2021-09-05] MEDS: *HR* Heparin 5,000 UNIT/ML VIAL SQ SCH ×3 (06:50→21:40)
[2021-09-05] MEDS: Budesonide/Formoterol 160/4.5 1 PUFF INH IH SCH ×2 (07:54→20:54)
[2021-09-05] MEDS: Insulin LISPRO 300 UNITS/3 ML VIAL SUBQ SCH ×4 (09:00→22:12)
[2021-09-05] MEDS: Pregabalin 50 MG CAPSULE PO SCH ×3 (09:02→22:12)
[2021-09-05] MEDS: hydrALAZINE 25 MG TABLET PO SCH ×3 (09:02→22:11)
[2021-09-05] MEDS: Isosorbide MONOnitrate (24 HR) 60 MG TAB.ER.24H PO SCH (09:03)
[2021-09-05] MEDS: Aspirin Enteric Coated 81 MG Tablet PO SCH (09:03)
[2021-09-05] MEDS: carvediloL 6.25 MG TABLET PO SCH ×2 (09:03→15:59)
[2021-09-05] MEDS: Furosemide 20 MG TABLET PO SCH (09:03)
[2021-09-05] MEDS: Nystatin POWDER 30 GM BOTTLE TP SCH ×2 (09:04→22:14)
[2021-09-05 09:37] LABS: Hematocrit 36.2 % (35.3-44.9); Hemoglobin 11.1 g/dL (11.5-15.4); Mean Corpuscular HGB Conc 30.7 g/dL (31.6-35.5); Mean Corpuscular Hemoglobin 24.8 pg (28.0-33.3); Mean Corpuscular Volume 80.8 fL (83.0-100.0); Mean Platelet Volume 10.9 fL (9.4-12.4); Platelet Count 233 K/mcL (140-400); Red Blood Count 4.48 M/mcL (3.82-4.97); Red Cell Distribution Width 15.3 % (11.5-14.5)
[2021-09-05 10:06] LABS: Calcium 8.6 mg/dL (8.6-10.3); Potassium 4.8 mEq/L (3.5-5.1)
[2021-09-05] MEDS: FLUoxetine 20 MG CAPSULE PO SCH (18:34)
[2021-09-05] MEDS: ALPRAZolam 0.25 MG TABLET PO SCH (22:12)
[2021-09-05] MEDS: calcitrioL 0.25 MCG CAPSULE PO SCH (22:17)
[2021-09-06 02:45] LABS: Basophils % 0.2 %; Hematocrit 34.2 % (35.3-44.9); Hemoglobin 10.5 g/dL (11.5-15.4); Lymphocytes # 0.7 K/mcL (0.6-4.6); Lymphocytes % 8.2 %; Mean Corpuscular HGB Conc 30.7 g/dL (31.6-35.5); Mean Corpuscular Hemoglobin 25.2 pg (28.0-33.3); Mean Corpuscular Volume 82.2 fL (83.0-100.0); Monocytes % 7.2 %; Neutrophils # 7.5 K/mcL (1.6-8.9); Platelet Count 221 K/mcL (140-400); Red Blood Count 4.16 M/mcL (3.82-4.97); Red Cell Distribution Width 15.3 % (11.5-14.5); Segmented Neutrophils % 83.4 %
[2021-09-06 02:46] LABS: Monocytes # 0.7 K/mcL (0.0-1.3)
[2021-09-06 03:06] LABS: Calcium 8.5 mg/dL (8.6-10.3); Potassium 4.8 mEq/L (3.5-5.1)
[2021-09-06] MEDS: Ipratropium 1 PUFF INHALER IH SCH ×4 (04:18→16:25)
[2021-09-06] MEDS: *HR* Heparin 5,000 UNIT/ML VIAL SQ SCH ×2 (06:02→12:26)
[2021-09-06] MEDS: Budesonide/Formoterol 160/4.5 1 PUFF INH IH SCH (07:56)
[2021-09-06] MEDS: Insulin LISPRO 300 UNITS/3 ML VIAL SUBQ SCH ×2 (08:47→12:26)
[2021-09-06] MEDS: Aspirin Enteric Coated 81 MG Tablet PO SCH (08:48)
[2021-09-06] MEDS: Isosorbide MONOnitrate (24 HR) 60 MG TAB.ER.24H PO SCH (08:48)
[2021-09-06] MEDS: Pregabalin 50 MG CAPSULE PO SCH (08:48)
[2021-09-06] MEDS: Nystatin POWDER 30 GM BOTTLE TP SCH (08:48)
[2021-09-06] MEDS: Furosemide 20 MG TABLET PO SCH (08:48)
[2021-09-06] MEDS: hydrALAZINE 25 MG TABLET PO SCH (08:48)
[2021-09-06] MEDS: carvediloL 6.25 MG TABLET PO SCH (08:48)
[2021-09-06] MEDS: *HR* OxyCODONE/APAP 5/325 TABLET PO PRN (09:05)
[2021-09-06 12:42] VITALS: BP 129/75; PULSE 54; TEMP 97.6
[2021-09-06 12:59] VITALS: O2SAT 94
[2021-09-07] MEDS ORDERED: dexAMETHasone 4 MG TABLET PO SCH (09:00)
== END 2021-09-06 16:41 | disposition home health service (06) ==
LOC: 2ANU → SUATTDRO 17:51
PROVIDERS: ADMIT Internal Medicine; ATTEND General Practice